=== PATIENT | female | born 1950 | race Caucasian/White ===

== ENCOUNTER 2017-01-05 11:50 | Outpatient (CLI) | payer OTHER | END 2017-01-05 11:51 | disposition critical access hospital (66) | LOC: EMS 11:50 | PROVIDERS: ATTEND Surgery | DX: G89.29 Other chronic pain (principal) | CPT/HCPCS: A0425; A0429 ==

== ENCOUNTER 2017-01-05 12:05 | Inpatient (IN) | payer OTHER, MEDICARE ==
[2017-01-05] MEDS ORDERED: ONDANSETRON 4 MG/2 ML VIAL IVP STA ×2 (12:52→16:26)
[2017-01-05] MEDS ORDERED: MORPHINE 2 MG/ML SYRINGE IVP STA ×2 (12:52→16:13)
[2017-01-05] MEDS ORDERED: SODIUM CHLORIDE 0.9% 1,000 ML IV ONE ×2 (12:52→14:45)
[2017-01-05] MEDS ORDERED: DEXAMETHASONE 10 MG/ML VIAL IVP STA (12:53)
[2017-01-05] MEDS ORDERED: DEXAMETHASONE 10 MG/ML VIAL ONE (12:57)
[2017-01-05] MEDS ORDERED: ONDANSETRON 4 MG/2 ML VIAL ONE ×2 (12:57→16:27)
[2017-01-05] MEDS ORDERED: MORPHINE 10 MG/ML VIAL ONE ×2 (12:57→16:14)
--- NOTE | 2017-01-05 12:57 | ED Physician Documentation ---
PD HPI BACK PAIN - Stated complaint Stated Complaint: BACK PX - Chief complaint Chief Complaint: Back Pain - History obtained from History obtained from: Patient, Family - History of Present Illness Timing - onset: How many days ago (3) Timing - duration: Days (3) Timing - details: Gradual onset, Still present Pain level max: >10 Pain level now: 7 Location: Lower, Left Quality: Pain, Spasm, Sharp, Similar to prior episodes Associated symptoms: No: Fever, Weakness, Numbness, Incontinent of urine, Unable to urinate, Hematuria, Incontinent of stool Improves with: Rest, Position Worsened by: Movement, Lifting, Twisting, Palpation Contributing factors: Other (shopping) Similar symptoms before: Diagnosis (lumbar disc disease has had back surgery previously) Recently seen: Not recently seen - Additional information Additional information: 66 y/o type 2 diabetic female with a history of MS and prior back pain has developed acute back pain that has kept her in bed for the past 3 days. She has severe pain to any movement and the pain is located in the lower back on the left side. Review of Systems Constitutional: denies: Fever, Chills, Fatigue Eyes: denies: Decreased vision Ears: denies: Ear pain Nose: denies: Congestion Throat: denies: Sore throat Cardiac: denies: Chest pain / pressure, Palpitations Respiratory: denies: Dyspnea, Cough GI: reports: Nausea. denies: Abdominal Pain, Vomiting, Constipation, Diarrhea : denies: Dysuria, Frequency Skin: denies: Rash Musculoskeletal: reports: Back pain. 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 - Present Medications Home Medications: Ambulatory Orders Medication Instructions Recorded Confirmed Calcium Gel 2 tab DAILY 01/11/15 03/25/15 Glatiramer Acetate [Copaxone] 20 mg DAILY 01/11/15 03/25/15 Insulin NPH Human Isophane 22 units BID 01/11/15 03/25/15 [Humulin N] Losartan [Cozaar] 75 mg DAILY 06/28/15 09/09/15 Metoprolol Tartrate 50 mg BID 01/11/15 03/25/15 Phenytoin Sodium Extended 300 mg DAILY 01/11/15 03/25/15 [Dilantin] Pregabalin [Lyrica] 300 mg BID 01/11/15 03/25/15 glipiZIDE [Glucotrol] 10 mg BID 01/11/15 03/25/15 - Allergies Allergies/Adverse Reactions: Allergies Allergy/AdvReac Type Severity Reaction Status Date / Time hydromorphone HCl * AdvReac Emesis Verified 01/05/17 12:13 [From Dilaudid] - Social History Does the pt smoke?: No Smoking Status: Never smoker Does the pt drink ETOH?: No Does the pt have substance abuse?: No PD ED PE NORMAL - Vitals Vital signs reviewed: Yes (hypertensive) - General General: Alert and oriented X 3, No acute distress, Well developed/nourished - HEENT HEENT: Atraumatic, PERRL - Neck Neck: Supple, no meningeal sign - Cardiac Cardiac: RRR, No murmur - Respiratory Respiratory: No respiratory distress, Clear bilaterally - Abdomen Abdomen: Soft, Non tender - Back Back: No CVA TTP, No spinal TTP, Other (There is mild point tenderness to the lower left paraspinous muscles. The paitent is wearing a back brace. ) - Derm Derm: Normal color, No rash - Extremities Extremities: No deformity, No edema - Neuro Neuro: Alert and oriented X 3, No motor deficit, No sensory deficit, Normal speech - Psych Psych: Normal mood, Normal affect Results - Vitals Vitals: Vital Signs - 24 hr 01/05/17 01/05/17 01/05/17 12:07 14:00 15:09 Temperature 36.5 C Heart Rate 62 67 65 Respiratory 14 12 17 Rate Blood Pressure 190/92 H 185/88 H 168/88 H O2 Saturation 98 97 95 Oxygen O2 Source Room air - Labs Labs: Laboratory Tests 01/05/17 01/05/17 01/05/17 13:20 13:20 16:25 WBC 7.7 RBC 5.11 Hgb 15.1 Hct 43.6 MCV 85.3 MCH 29.5 MCHC 34.6 RDW 13.0 Plt Count 159 MPV 9.6 Neut # 5.2 Lymph # 1.5 [place] # 0.7 Eos # 0.3 Baso # 0.1 Absolute Nucleated RBC 0.00 Nucleated RBCs 0.0 Sodium 141 Potassium 3.7 Chloride 104 Carbon Dioxide 27 Anion Gap 10.0 BUN 14 Creatinine 0.5 Estimated GFR (MDRD) 123 Glucose 227 H Calcium 9.3 Total Bilirubin 0.7 AST 13 ALT 14 Alkaline Phosphatase 88 Total Protein 6.2 L Albumin 3.5 Globulin 2.7 Albumin/Globulin Ratio 1.3 Lipase 18 L Urine Color YELLOW Urine Clarity CLEAR Urine pH 6.5 Ur Specific [place] 1.020 Urine Protein NEGATIVE Urine Glucose (UA) >=1000 H Urine Ketones 15 H Urine Occult Blood NEGATIVE Urine Nitrite NEGATIVE Urine Bilirubin NEGATIVE Urine Urobilinogen 1 (NORMAL) Ur Leukocyte Esterase NEGATIVE Ur Microscopic Review NOT INDICATED Urine Culture Comments NOT INDICATED Procedures - IVC sono (time) 1250 Bedside IVC sono: IVC measures (cm) (0.92), IVC collapsed c insp (cm) (complete) , Dehydration 1440 Bedside IVC sono: IVC measures (cm) (1.10), IVC collapsed c insp (cm) (complete) , Dehydration (after 1 liter) PD MEDICAL DECISION MAKING - ED course Complexity details: reviewed old records, reviewed results, re-evaluated patient , considered differential, d/w patient, d/w family ED course: 66 y/o female has acute back spasm and is dehydrated with T2DM. She is hydrated and given decacdron, morphine and zofran and valium. despite medications the patient is not able to move to more than 15 degrees without severe spasm in the lower lumbar muscles on the left. We did not find UTI or other explanation for the elevated blood sugar and we were not able to get adequate control of the patient's pain despite mulitple modalities used over 5 hours in the ED and eventually the help of Dr. Buster Renner was requested. Departure - Departure Disposition: ED Place in Observation Clinical Impression: Intractable low back pain Condition: Stable
[2017-01-05 13:23] LABS: BASOPHILS # (AUTO) 0.1 10^3/uL (0.0-0.1); BASOPHILS % (AUTO) 0.9 %; EOSINOPHILS # (AUTO) 0.3 10^3/uL (0.0-0.7); EOSINOPHILS % (AUTO) 3.5 %; HCT - HEMATOCRIT 43.6 % (37.0-47.0); HGB - HEMOGLOBIN 15.1 g/dL (12.0-16.0); LYMPHOCYTES # (AUTO) 1.5 10^3/uL (1.5-3.5); LYMPHOCYTES % (AUTO) 19.2 %; MEAN CORPUSCULAR HEMOGLOBIN 29.5 pg (27.0-31.0); MEAN CORPUSCULAR HGB CONC 34.6 g/dL (32.0-36.0); MEAN CORPUSCULAR VOLUME 85.3 fL (81.0-99.0); MEAN PLATELET VOLUME 9.6 fL (7.9-10.8); MONOCYTES # (AUTO) 0.7 10^3/uL (0.0-1.0); MONOCYTES % (AUTO) 8.6 %; NEUTROPHILS # (AUTO) 5.2 10^3/uL (1.5-6.6); NEUTROPHILS % (AUTO) 67.8 %; RED BLOOD COUNT 5.11 10^6/uL (4.20-5.40); UNCORRECTED WHITE BLOOD COUNT 7.7 x10^3/uL; WHITE BLOOD COUNT 7.7 x10^3/uL (4.8-10.8)
[2017-01-05 13:37] LABS: ALBUMIN/GLOBULIN RATIO 1.3 (1.0-2.2); BILIRUBIN,TOTAL 0.7 mg/dL (0.2-1.0); CALCIUM 9.3 mg/dL (8.5-10.3); CREATININE 0.5 mg/dL (0.4-1.0); POTASSIUM 3.7 mmol/L (3.5-5.0); TOTAL PROTEIN 6.2 g/dL (6.7-8.2)
[2017-01-05] MEDS ORDERED: diazePAM INJ 5 MG/ML SYRINGE IVP STA (14:03)
[2017-01-05] MEDS ORDERED: diazePAM INJ 5 MG/ML SYRINGE ONE (14:06)
[2017-01-05 16:30] LABS: BILIRUBIN,URINE NEGATIVE (NEGATIVE); PH,URINE 6.5 PH (5.0-7.5)
[2017-01-05 16:31] LABS: UA CHARGE (STRIP ONLY) YES; UR CULTURE IF IND NOT INDICATED
[2017-01-05] MEDS ORDERED: ZOLPIDEM 5 MG TABLET PO PRN (18:24)
[2017-01-05] MEDS ORDERED: MORPHINE 2 MG/ML SYRINGE IVP PRN ×2 (18:24→18:37)
[2017-01-05 19:13] LABS: HEMOGLOBIN A1C 1.42 g/dL
[2017-01-05] MEDS ORDERED: MORPHINE 2 MG/ML SYRINGE IVP SCH (19:17)
[2017-01-05] MEDS: SODIUM CHLORIDE FLUSH 0.9% 10 ML SYRINGE IVP PRN ×2 (19:39→19:48)
[2017-01-05] MEDS: ONDANSETRON 4 MG/2 ML VIAL IVP PRN (19:40)
[2017-01-05] MEDS: SODIUM CHLORIDE 0.9% 1,000 ML IV SCH (19:48)
[2017-01-05] MEDS: INSULIN ASPART 300 UNIT/3 ML PEN SUBQ SCH (21:29)
[2017-01-05] MEDS: KETOROLAC 15 MG/ML VIAL IVP PRN (21:30)
[2017-01-05] MEDS: glipiZIDE 5 MG TABLET PO SCH (22:06)
[2017-01-05] MEDS: PREGABALIN 100 MG CAPSULE PO SCH (22:06)
[2017-01-05] MEDS: PROMETHAZINE 12.5 MG SUPP PR PRN (22:06)
[2017-01-05] MEDS: METOPROLOL TARTRATE 50 MG TABLET PO SCH (22:06)
[2017-01-05] MEDS: BACLOFEN 10 MG TABLET PO SCH (22:06)
[2017-01-05] MEDS: LOSARTAN 50 MG TABLET PO SCH (22:09)
[2017-01-05] MEDS: SODIUM CHLORIDE FLUSH 0.9% 10 ML SYRINGE IVP SCH (22:09)
[2017-01-05] MEDS: TRIAMCINOLONE 0.1% CREAM 15 GM TUBE TOP SCH (22:09)
[2017-01-06] MEDS: SODIUM CHLORIDE FLUSH 0.9% 10 ML SYRINGE IVP PRN (03:01)
[2017-01-06] MEDS: ONDANSETRON 4 MG/2 ML VIAL IVP PRN (03:02)
[2017-01-06] MEDS: KETOROLAC 15 MG/ML VIAL IVP PRN ×3 (03:02→14:46)
[2017-01-06] MEDS: BACLOFEN 10 MG TABLET PO SCH ×3 (05:40→21:00)
[2017-01-06 08:00] LABS: BASOPHILS # (AUTO) 0.1 10^3/uL (0.0-0.1); BASOPHILS % (AUTO) 0.7 %; EOSINOPHILS % (AUTO) 0.4 %; HCT - HEMATOCRIT 39.7 % (37.0-47.0); HGB - HEMOGLOBIN 13.8 g/dL (12.0-16.0); LYMPHOCYTES # (AUTO) 1.9 10^3/uL (1.5-3.5); LYMPHOCYTES % (AUTO) 20.7 %; MEAN CORPUSCULAR HEMOGLOBIN 29.8 pg (27.0-31.0); MEAN CORPUSCULAR HGB CONC 34.8 g/dL (32.0-36.0); MEAN CORPUSCULAR VOLUME 85.7 fL (81.0-99.0); MEAN PLATELET VOLUME 9.6 fL (7.9-10.8); MONOCYTES # (AUTO) 0.8 10^3/uL (0.0-1.0); MONOCYTES % (AUTO) 8.7 %; NEUTROPHILS # (AUTO) 6.3 10^3/uL (1.5-6.6); NEUTROPHILS % (AUTO) 69.5 %; RED BLOOD COUNT 4.63 10^6/uL (4.20-5.40); RED CELL DISTRIBUTION WIDTH 12.9 % (12.0-15.0); UNCORRECTED WHITE BLOOD COUNT 9.1 x10^3/uL; WHITE BLOOD COUNT 9.1 x10^3/uL (4.8-10.8)
[2017-01-06] MEDS: INSULIN ASPART 300 UNIT/3 ML PEN SUBQ SCH ×4 (08:06→20:36)
[2017-01-06 08:12] LABS: ALBUMIN/GLOBULIN RATIO 1.2 (1.0-2.2); BILIRUBIN,TOTAL 0.5 mg/dL (0.2-1.0); CALCIUM 8.3 mg/dL (8.5-10.3); CREATININE 0.7 mg/dL (0.4-1.0); MAGNESIUM 1.5 mg/dL (1.7-2.8); POTASSIUM 3.6 mmol/L (3.5-5.0); TOTAL PROTEIN 5.9 g/dL (6.7-8.2)
[2017-01-06] MEDS: SODIUM CHLORIDE FLUSH 0.9% 10 ML SYRINGE IVP SCH ×3 (08:45→20:38)
[2017-01-06] MEDS: CHOLECALCIFEROL 5,000 UNIT CAPSULE PO SCH (08:47)
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
[2017-01-06] MEDS: FAMOTIDINE 20 MG TABLET PO SCH (08:48)
[2017-01-06] MEDS: ENOXAPARIN 40 MG/0.4 ML SYRINGE SUBQ SCH (08:48)
[2017-01-06] MEDS: INSULIN NPH HUMAN 100 UNIT/1 ML 10 ML MDV SUBQ SCH ×2 (08:48→20:30)
[2017-01-06] MEDS: glipiZIDE 5 MG TABLET PO SCH ×2 (08:48→20:30)
[2017-01-06] MEDS: POLYETHYLENE GLYCOL 3350 17 GM PACKET PO SCH (08:49)
[2017-01-06] MEDS: METOPROLOL TARTRATE 50 MG TABLET PO SCH ×2 (08:49→20:31)
[2017-01-06] MEDS: LOSARTAN 50 MG TABLET PO SCH ×2 (08:49→20:31)
[2017-01-06] MEDS: PREGABALIN 100 MG CAPSULE PO SCH ×2 (08:50→20:30)
[2017-01-06] MEDS: SODIUM CHLORIDE 0.9% 1,000 ML IV SCH ×2 (09:00→20:42)
[2017-01-06] MEDS ORDERED: ALPRAZolam 0.25 MG TABLET PO PRN (10:11)
--- NOTE | 2017-01-06 10:33 | PROVIDER PROGRESS NOTE ---
Subjective - Prog Note Date Prog Note Date: 01/06/17 Prog Note Time: 10:28 - Subjective Pt reports feeling: Improved (pt report her pain is much better controlled, feel much better) Objective - Vital Signs/Intake & Output Vital Signs: Vital Signs x48h Temp Pulse Resp BP Pulse Ox 01/06/17 08:49 36.6 C 74 16 160/86 H 98 01/06/17 06:41 36.4 C L 71 18 144/75 H 100 Intake & Output: Intake & Output 01/03/17 01/04/17 01/05/17 01/06/17 23:59 23:59 23:59 23:59 Intake Total 1325 600 Output Total 250 Balance 1325 350 - Objective General Appearance: positive: No acute distress, Alert Eyes Bilateral: positive: Normal inspection, PERRL ENT: positive: ENT inspection nml, Pharynx nml, No signs of dehydration Neck: positive: Nml inspection, Trachea midline Respiratory: positive: Chest non-tender, No respiratory distress, Breath sounds nml Cardiovascular: positive: Regular rate & rhythm, No murmur Peripheral Pulses: 2+ Radial (R), 2+ Radial (L), 2+ Dorsalis pedis (R), 2+ Dorsalis pedis (L) Abdomen: positive: Non-tender, Nml bowel sounds, No distention Back: positive: Nml inspection, Other (no CVA tenderness) Skin: positive: Color nml, Warm Extremities: positive: Non-tender, Full ROM, Nml appearance Neurologic/Psychiatric: positive: Oriented x3, CN's nml (2-12), Motor nml, Sensation nml - Lab Results Fish Bones: 01/06/17 07:54 01/06/17 07:54 Other Labs: Lab Results x24hrs 01/06/17 01/06/17 01/06/17 Range/Units 07:54 07:54 07:33 WBC 9.1 (4.8-10.8) x10^3/uL RBC 4.63 (4.20-5.40) 10^6/uL Hgb 13.8 (12.0-16.0) g/dL Hct 39.7 (37.0-47.0) % MCV 85.7 (81.0-99.0) fL MCH 29.8 (27.0-31.0) pg MCHC 34.8 (32.0-36.0) g/dL RDW 12.9 (12.0-15.0) % Plt Count 159 (130-450) 10^3/uL MPV 9.6 (7.9-10.8) fL Neut # 6.3 (1.5-6.6) 10^3/uL Lymph # 1.9 (1.5-3.5) 10^3/uL [place] # 0.8 (0.0-1.0) 10^3/uL Eos # 0.0 (0.0-0.7) 10^3/uL Baso # 0.1 (0.0-0.1) 10^3/uL Absolute Nucleated RBC 0.00 x10^3/uL Nucleated RBCs 0.0 /100WBC Sodium 141 (135-145) mmol/L Potassium 3.6 (3.5-5.0) mmol/L Chloride 106 (101-111) mmol/L Carbon Dioxide 26 (21-32) mmol/L Anion Gap 9.0 (6-13) BUN 20 (6-20) mg/dL Creatinine 0.7 (0.4-1.0) mg/dL Estimated GFR (MDRD) 84 L (>89) Glucose 243 H (70-100) mg/dL POC Whole Bld Glucose 216 H (70 - 100) mg/dL Calcium 8.3 L (8.5-10.3) mg/dL Magnesium 1.5 L (1.7-2.8) mg/dL Total Bilirubin 0.5 (0.2-1.0) mg/dL AST 26 (10-42) IU/L ALT 32 (10-60) IU/L Alkaline Phosphatase 112 (42-121) IU/L Total Protein 5.9 L (6.7-8.2) g/dL Albumin 3.2 (3.2-5.5) g/dL Globulin 2.7 (2.1-4.2) g/dL Albumin/Globulin Ratio 1.2 (1.0-2.2) Assessment/Plan - Problem List (1) Intractable low back pain Impression: Pt report Toradol is great control of her back pain, will continue on Toradol Pt report some anxiety, add Xanax PRN MRI is pending. After review MRI result, will discuss with pt to determine further intervention.
--- NOTE | 2017-01-06 12:41 | MRI Preliminary Report ---
Exam: MRI Lumbar Spine W/O IMPRESSION: 1. Mild to moderate degenerative spondylosis involving levels L3-L4 through L5-S1, stapled above and summarized below. As detailed above, this has progressed at L3-L4 and L5-S1 levels since the prior st udy dated 11/29/2013. 2. Grade 1 retrolisthesis L4 on L5 measuring 3 mm. Grade 1 retrolisthesis L5 on S1 measuring 5 mm. 3. Modic type 1 degenerative endplate change at L3-L4 level with mild endplate edema. Modic type I ch anges may represent a source of pain. 4. L3-L4 level demonstrates mild central canal narrowing, slightly progressed. Moderate to severe lef t and mild right neuroforaminal narrowing. The neuroforaminal narrowing has also progressed since the prior study. 5. L4-L5 level demonstrates mild central canal narrowing and moderate left and mild right neuroforami nal narrowing. This level is similar to the prior study. 6. L5-S1 level demonstrates mild central canal narrowing, slightly increased since the prior study. M [id number] bilateral neuroforaminal narrowing. Mild bilateral lateral recess narrowing with mass effect on bilateral traversing S1 nerves. The left lateral recess narrowing has slightly increased s rohit the prior study. Comment: The following findings are so common in adults without low back pain that while we report th eir presence, they must be interpreted with caution and in the context of the clinical situation. (Re misbah Espinoza et al, Spine 2001) Prevalence of findings in patients without low back pain: Disk degeneration (any evidence): 92% Disk desiccation/T2 signal loss: 83% Disk height loss: 56% Disk bulge: 64% Disk protrusion: 32% Annular tear/high intensity zone: 38% [facility] SITE ID: [id number]
--- NOTE | 2017-01-06 12:44 | MRI Report ---
EXAM: MRI LUMBAR SPINE WITHOUT CONTRAST EXAM DATE: 01/06/2017 12:02 PM. CLINICAL HISTORY: Back pain. History of MS. No recent trauma/injury. COMPARISON: MRI lumbar spine 11/29/2013 TECHNIQUE: Multiplanar, multisequence T1-weighted and fluid-sensitive sequences of the lumbar spine f rom T12 to S1 without contrast. Other: None. FINDINGS: Spinal Cord: The conus terminates at L1-L2. No signal abnormality in the visualized spinal cord. Alignment: Grade 1 retrolisthesis L4 on L5 measuring 3 mm. Grade 1 retrolisthesis L5 on S1 measuring 5 mm. Bone Marrow: Five kil-wwe-dsojkwh lumbar vertebral bodies are assumed. No gross fractures . T1 and T2 hyperintense lesion within the T12 vertebral body likely represents a benign hemangioma. Modic type 1 degenerative endplate change at L3-L4 level with mild endplate edema. Disk Levels/Facets: T12-L1: Unremarkable. L1-L2: Unremarkable. L2-L3: Unremarkable. L3-L4: Moderate disk height loss and desiccation. Moderate diffuse disk bulge, progressed since the p rior study. Mild bilateral facet arthropathy. Mild central canal narrowing, slightly progressed. Mode rate to severe left and mild right neuroforaminal narrowing. The neuroforaminal narrowing has also pr ogressed since the prior study. L4-L5: Moderate disk height loss and desiccation. Mild to moderate diffuse disk bulge and moderate bi lateral facet arthropathy. Mild central canal narrowing and moderate left and mild right neuroforamin al narrowing. This level is similar to the prior study. L5-S1: Extensive disk height loss and desiccation. Moderate diffuse disk bulge with superimposed left central extrusion extending caudad approximately 8 mm. This has increased since the prior study. Mod erate bilateral facet arthropathy. Mild central canal narrowing, slightly increased since the prior s tudy. Dhfj-pj-xwtrmqif bilateral neuroforaminal narrowing. Mild bilateral lateral recess narrowing wi th mass effect on bilateral traversing S1 nerves. The left lateral recess narrowing has slightly incr eased since the prior study. Musculature: Normal. No edema or fatty atrophy. Other: A 2.6 and meter T2 hyperintense lesion within the right kidney is incompletely evaluated, may represent a cyst. The appearance is similar to the prior study. The visualized abdominopelvic cavity is otherwise unremarkable. IMPRESSION: 1. Mild to moderate degenerative spondylosis involving levels L3-L4 through L5-S1, stapled above and summarized below. As detailed above, this has progressed at L3-L4 and L5-S1 levels since the prior st udy dated 11/29/2013. 2. Grade 1 retrolisthesis L4 on L5 measuring 3 mm. Grade 1 retrolisthesis L5 on S1 measuring 5 mm. 3. Modic type 1 degenerative endplate change at L3-L4 level with mild endplate edema. Modic type I ch anges may represent a source of pain. 4. L3-L4 level demonstrates mild central canal narrowing, slightly progressed. Moderate to severe lef t and mild right neuroforaminal narrowing. The neuroforaminal narrowing has also progressed since the prior study. 5. L4-L5 level demonstrates mild central canal narrowing and moderate left and mild right neuroforami nal narrowing. This level is similar to the prior study. 6. L5-S1 level demonstrates mild central canal narrowing, slightly increased since the prior study. M cdr-xs-wyyuioec bilateral neuroforaminal narrowing. Mild bilateral lateral recess narrowing with mass effect on bilateral traversing S1 nerves. The left lateral recess narrowing has slightly increased s rohit the prior study. Comment: The following findings are so common in adults without low back pain that while we report th eir presence, they must be interpreted with caution and in the context of the clinical situation. (Re misbah Espinoza et al, Spine 2001) Prevalence of findings in patients without low back pain: Disk degeneration (any evidence): 92% Disk desiccation/T2 signal loss: 83% Disk height loss: 56% Disk bulge: 64% Disk protrusion: 32% Annular tear/high intensity zone: 38% [facility] Referring Provider Line: [phone] SITE ID: [id number]
[2017-01-06] MEDS: TRIAMCINOLONE 0.1% CREAM 15 GM TUBE TOP SCH ×2 (13:29→20:31)
--- NOTE | 2017-01-06 13:30 | Discharge Plan ---
Discharge Plan Condition: Stable Diet: Diabetic Activity Restrictions: Activity as Tolerated Shower Restrictions: No Driving Restrictions: No Weight Bearing: Full Weight Follow-Up Care: Outpatient Rehab - PT No Smoking: If you smoke, Please STOP! Call for help.
[2017-01-06] MEDS ORDERED: SODIUM CHLORIDE 0.9% 1,000 ML IV ONE (15:00)
[2017-01-06] MEDS ORDERED: MAGNESIUM OXIDE 400 MG TABLET PO ONE (15:00)
[2017-01-06] MEDS: DOCUSATE SODIUM 250 MG CAPSULE PO SCH (21:00)
[2017-01-06] MEDS: SENNA 8.6 MG TABLET PO SCH (21:00)
[2017-01-07] MEDS: KETOROLAC 15 MG/ML VIAL IVP PRN ×3 (00:39→18:57)
[2017-01-07] MEDS ORDERED: MORPHINE 2 MG/ML SYRINGE IVP PRN (01:14)
[2017-01-07] MEDS ORDERED: MAGNESIUM CITRATE 296 ML BOTTLE PO PRN (01:14)
[2017-01-07] MEDS: ONDANSETRON 4 MG/2 ML VIAL IVP PRN (01:51)
[2017-01-07] MEDS ORDERED: MINERAL OIL ENEMA 133 ML BOTTLE RC SCH (02:00)
[2017-01-07] MEDS ORDERED: BISACODYL 10 MG SUPP PR SCH (02:00)
[2017-01-07 05:55] LABS: BASOPHILS % (AUTO) 0.4 %; EOSINOPHILS # (AUTO) 0.1 10^3/uL (0.0-0.7); EOSINOPHILS % (AUTO) 1.2 %; HCT - HEMATOCRIT 42.1 % (37.0-47.0); HGB - HEMOGLOBIN 14.2 g/dL (12.0-16.0); LYMPHOCYTES # (AUTO) 1.6 10^3/uL (1.5-3.5); LYMPHOCYTES % (AUTO) 14.2 %; MEAN CORPUSCULAR HEMOGLOBIN 29.4 pg (27.0-31.0); MEAN CORPUSCULAR HGB CONC 33.6 g/dL (32.0-36.0); MEAN CORPUSCULAR VOLUME 87.5 fL (81.0-99.0); MEAN PLATELET VOLUME 10.1 fL (7.9-10.8); MONOCYTES # (AUTO) 0.9 10^3/uL (0.0-1.0); MONOCYTES % (AUTO) 7.4 %; NEUTROPHILS # (AUTO) 8.9 10^3/uL (1.5-6.6); NEUTROPHILS % (AUTO) 76.8 %; RED BLOOD COUNT 4.81 10^6/uL (4.20-5.40); RED CELL DISTRIBUTION WIDTH 13.3 % (12.0-15.0); UNCORRECTED WHITE BLOOD COUNT 11.6 x10^3/uL; WHITE BLOOD COUNT 11.6 x10^3/uL (4.8-10.8)
[2017-01-07] MEDS: SODIUM CHLORIDE 0.9% 1,000 ML IV SCH ×2 (06:08→19:03)
[2017-01-07 06:10] LABS: ALBUMIN/GLOBULIN RATIO 1.1 (1.0-2.2); BILIRUBIN,TOTAL 0.4 mg/dL (0.2-1.0); CALCIUM 8.3 mg/dL (8.5-10.3); CREATININE 0.5 mg/dL (0.4-1.0); POTASSIUM 3.6 mmol/L (3.5-5.0); TOTAL PROTEIN 6.1 g/dL (6.7-8.2)
[2017-01-07] MEDS: BACLOFEN 10 MG TABLET PO SCH ×3 (06:31→21:21)
[2017-01-07] MEDS: SODIUM CHLORIDE FLUSH 0.9% 10 ML SYRINGE IVP SCH ×3 (06:34→21:22)
[2017-01-07] MEDS ORDERED: hydrALAZINE INJ 20 MG/ML VIAL IVP PRN (07:52)
--- NOTE | 2017-01-07 08:00 | PROVIDER PROGRESS NOTE ---
Subjective - Prog Note Date Prog Note Date: 01/07/17 Prog Note Time: 07:58 - Subjective Pt reports feeling: Improved (pt state she felt much better after she had a big bowel movement on last night) Current Medications - Current Medications Current Medications: I will ask pharmacy to verify pt can bring her home meds Glatiramer to the floor Objective - Vital Signs/Intake & Output Vital Signs: Vital Signs x48h Temp Pulse Resp BP Pulse Ox 01/07/17 07:30 36.4 C L 64 20 170/82 H 100 01/07/17 05:16 36.9 C 67 18 147/87 H 98 01/07/17 02:00 160/69 H 01/07/17 00:15 36.8 C 70 18 190/107 H 97 Intake & Output: Intake & Output 01/04/17 01/05/17 01/06/17 01/07/17 23:59 23:59 23:59 23:59 Intake Total 1400 915 Output Total 1200 300 Balance 200 615 - Objective General Appearance: positive: No acute distress, Alert Eyes Bilateral: positive: Normal inspection, PERRL ENT: positive: ENT inspection nml, Pharynx nml Neck: positive: Nml inspection, Trachea midline Respiratory: positive: Chest non-tender, No respiratory distress, Breath sounds nml Cardiovascular: positive: Regular rate & rhythm, No murmur Peripheral Pulses: 2+ Radial (R), 2+ Radial (L), 2+ Dorsalis pedis (R), 2+ Dorsalis pedis (L) Abdomen: positive: Non-tender, Nml bowel sounds, No distention Back: positive: Nml inspection Skin: positive: Color nml, No rash, Warm Extremities: positive: Non-tender, Full ROM, Nml appearance Neurologic/Psychiatric: positive: Oriented x3, CN's nml (2-12), Motor nml, Sensation nml - Lab Results Fish Bones: 01/07/17 04:45 01/07/17 04:45 Other Labs: Lab Results x24hrs 01/07/17 01/07/17 01/07/17 Range/Units 07:16 04:45 04:45 WBC 11.6 H (4.8-10.8) x10^3/uL RBC 4.81 (4.20-5.40) 10^6/uL Hgb 14.2 (12.0-16.0) g/dL Hct 42.1 (37.0-47.0) % MCV 87.5 (81.0-99.0) fL MCH 29.4 (27.0-31.0) pg MCHC 33.6 (32.0-36.0) g/dL RDW 13.3 (12.0-15.0) % Plt Count 161 (130-450) 10^3/uL MPV 10.1 (7.9-10.8) fL Neut # 8.9 H (1.5-6.6) 10^3/uL Lymph # 1.6 (1.5-3.5) 10^3/uL [place] # 0.9 (0.0-1.0) 10^3/uL Eos # 0.1 (0.0-0.7) 10^3/uL Baso # 0.0 (0.0-0.1) 10^3/uL Absolute Nucleated RBC 0.00 x10^3/uL Nucleated RBCs 0.0 /100WBC Sodium 143 (135-145) mmol/L Potassium 3.6 (3.5-5.0) mmol/L Chloride 112 H (101-111) mmol/L Carbon Dioxide 25 (21-32) mmol/L Anion Gap 6.0 (6-13) BUN 16 (6-20) mg/dL Creatinine 0.5 (0.4-1.0) mg/dL Estimated GFR (MDRD) 123 (>89) Glucose 212 H (70-100) mg/dL POC Whole Bld Glucose 166 H (70 - 100) mg/dL Calcium 8.3 L (8.5-10.3) mg/dL Total Bilirubin 0.4 (0.2-1.0) mg/dL AST 19 (10-42) IU/L ALT 28 (10-60) IU/L Alkaline Phosphatase 105 (42-121) IU/L Total Protein 6.1 L (6.7-8.2) g/dL Albumin 3.2 (3.2-5.5) g/dL Globulin 2.9 (2.1-4.2) g/dL Albumin/Globulin Ratio 1.1 (1.0-2.2) 06/23/17 Range/Units 20:28 WBC (4.8-10.8) x10^3/uL RBC (4.20-5.40) 10^6/uL Hgb (12.0-16.0) g/dL Hct (37.0-47.0) % MCV (81.0-99.0) fL MCH (27.0-31.0) pg MCHC (32.0-36.0) g/dL RDW (12.0-15.0) % Plt Count (130-450) 10^3/uL MPV (7.9-10.8) fL Neut # (1.5-6.6) 10^3/uL Lymph # (1.5-3.5) 10^3/uL [place] # (0.0-1.0) 10^3/uL Eos # (0.0-0.7) 10^3/uL Baso # (0.0-0.1) 10^3/uL Absolute Nucleated RBC x10^3/uL Nucleated RBCs /100WBC Sodium (135-145) mmol/L Potassium (3.5-5.0) mmol/L Chloride (101-111) mmol/L Carbon Dioxide (21-32) mmol/L Anion Gap (6-13) BUN (6-20) mg/dL Creatinine (0.4-1.0) mg/dL Estimated GFR (MDRD) (>89) Glucose (70-100) mg/dL POC Whole Bld Glucose 163 H (70 - 100) mg/dL Calcium (8.5-10.3) mg/dL Total Bilirubin (0.2-1.0) mg/dL AST (10-42) IU/L ALT (10-60) IU/L Alkaline Phosphatase (42-121) IU/L Total Protein (6.7-8.2) g/dL Albumin (3.2-5.5) g/dL Globulin (2.1-4.2) g/dL Albumin/Globulin Ratio (1.0-2.2) Assessment/Plan - Problem List (1) Intractable low back pain Impression: pt report she feel much better for back pain after she had a big bowel movement Pt can bring her home meds Glatiramer vital and lab reviewed. Continue treatment, pain control, PT treatment add PRN hydralazine for BP control Per discussion with pt and her family last night, pt want to D/C to SNF, D/C in planing.
[2017-01-07] MEDS: INSULIN ASPART 300 UNIT/3 ML PEN SUBQ SCH ×4 (08:08→20:35)
[2017-01-07] MEDS: CHOLECALCIFEROL 5,000 UNIT CAPSULE PO SCH (08:09)
[2017-01-07] MEDS: ENOXAPARIN 40 MG/0.4 ML SYRINGE SUBQ SCH (08:09)
[2017-01-07] MEDS: glipiZIDE 5 MG TABLET PO SCH ×2 (08:10→20:36)
[2017-01-07] MEDS: FAMOTIDINE 20 MG TABLET PO SCH (08:10)
[2017-01-07] MEDS: INSULIN NPH HUMAN 100 UNIT/1 ML 10 ML MDV SUBQ SCH ×2 (08:10→20:50)
[2017-01-07] MEDS: METOPROLOL TARTRATE 50 MG TABLET PO SCH ×2 (08:11→20:37)
[2017-01-07] MEDS: LOSARTAN 50 MG TABLET PO SCH ×2 (08:11→20:36)
[2017-01-07] MEDS: POLYETHYLENE GLYCOL 3350 17 GM PACKET PO SCH (08:12)
[2017-01-07] MEDS: PREGABALIN 100 MG CAPSULE PO SCH ×2 (08:12→20:36)
[2017-01-07] MEDS: TRIAMCINOLONE 0.1% CREAM 15 GM TUBE TOP SCH ×2 (08:13→20:42)
[2017-01-07] MEDS: SENNA 8.6 MG TABLET PO SCH (08:13)
[2017-01-07] MEDS: DOCUSATE SODIUM 250 MG CAPSULE PO SCH (08:13)
[2017-01-07] MEDS: BUTALB/ACETAM/CAFF 50/325/40MG TABLET PO PRN (08:14)
[2017-01-07] MEDS: GLATIRAMER 20 MG/ML SUBQ SCH (09:09)
[2017-01-08] MEDS: KETOROLAC 15 MG/ML VIAL IVP PRN ×3 (04:33→16:57)
[2017-01-08] MEDS: SODIUM CHLORIDE FLUSH 0.9% 10 ML SYRINGE IVP SCH ×3 (05:04→21:41)
[2017-01-08] MEDS: BACLOFEN 10 MG TABLET PO SCH ×3 (05:04→21:40)
[2017-01-08] MEDS: ONDANSETRON 4 MG/2 ML VIAL IVP PRN (05:04)
[2017-01-08 05:13] LABS: BASOPHILS # (AUTO) 0.1 10^3/uL (0.0-0.1); BASOPHILS % (AUTO) 0.7 %; EOSINOPHILS # (AUTO) 0.4 10^3/uL (0.0-0.7); EOSINOPHILS % (AUTO) 4.7 %; HCT - HEMATOCRIT 45.2 % (37.0-47.0); HGB - HEMOGLOBIN 15.2 g/dL (12.0-16.0); LYMPHOCYTES # (AUTO) 4.3 10^3/uL (1.5-3.5); LYMPHOCYTES % (AUTO) 44.2 %; MEAN CORPUSCULAR HEMOGLOBIN 29.4 pg (27.0-31.0); MEAN CORPUSCULAR HGB CONC 33.7 g/dL (32.0-36.0); MEAN CORPUSCULAR VOLUME 87.4 fL (81.0-99.0); MONOCYTES # (AUTO) 0.8 10^3/uL (0.0-1.0); MONOCYTES % (AUTO) 8.8 %; NEUTROPHILS % (AUTO) 41.6 %; RED BLOOD COUNT 5.17 10^6/uL (4.20-5.40); RED CELL DISTRIBUTION WIDTH 13.2 % (12.0-15.0); UNCORRECTED WHITE BLOOD COUNT 9.6 x10^3/uL; WHITE BLOOD COUNT 9.6 x10^3/uL (4.8-10.8)
[2017-01-08 05:27] LABS: ALBUMIN/GLOBULIN RATIO 1.1 (1.0-2.2); BILIRUBIN,TOTAL 0.7 mg/dL (0.2-1.0); CALCIUM 8.7 mg/dL (8.5-10.3); CREATININE 0.5 mg/dL (0.4-1.0); POTASSIUM 3.2 mmol/L (3.5-5.0); TOTAL PROTEIN 6.4 g/dL (6.7-8.2)
[2017-01-08] MEDS ORDERED: POTASSIUM CHLORIDE 20 MEQ TABLET PO ONE (07:11)
[2017-01-08] MEDS: SODIUM CHLORIDE 0.9% 1,000 ML IV SCH ×2 (08:22→21:41)
[2017-01-08] MEDS: INSULIN ASPART 300 UNIT/3 ML PEN SUBQ SCH ×4 (08:34→21:39)
--- NOTE | 2017-01-08 08:34 | PROVIDER PROGRESS NOTE ---
Subjective - Prog Note Date Prog Note Date: 01/08/17 Prog Note Time: 08:32 - Subjective Pt reports feeling: Improved (pt state her back pain is 100% improved.) Objective - Vital Signs/Intake & Output Vital Signs: Vital Signs x48h Temp Pulse Resp BP Pulse Ox 01/08/17 07:00 61 135/80 H 01/08/17 00:44 36.6 C 62 18 147/87 H 98 Intake & Output: Intake & Output 01/05/17 01/06/17 01/07/17 01/08/17 23:59 23:59 23:59 23:59 Intake Total 1400 3461 673 Output Total 1200 300 Balance 200 3161 673 - Objective General Appearance: positive: No acute distress, Alert Eyes Bilateral: positive: Normal inspection, PERRL ENT: positive: ENT inspection nml, No signs of dehydration Neck: positive: Nml inspection, Trachea midline Respiratory: positive: Chest non-tender, No respiratory distress, Breath sounds nml Cardiovascular: positive: Regular rate & rhythm, No murmur Peripheral Pulses: 2+ Radial (R), 2+ Radial (L), 2+ Dorsalis pedis (R), 2+ Dorsalis pedis (L) Abdomen: positive: Non-tender, Nml bowel sounds, No distention Back: positive: Nml inspection, Other (no CVA tenderness) Skin: positive: Color nml, Warm Extremities: positive: Non-tender, Full ROM, Nml appearance Neurologic/Psychiatric: positive: Oriented x3, CN's nml (2-12), Motor nml, Sensation nml - Lab Results Fish Bones: 01/08/17 04:50 01/08/17 04:50 Other Labs: Lab Results x24hrs 01/08/17 01/08/17 01/08/17 Range/Units 07:20 05:10 04:50 WBC (4.8-10.8) x10^3/uL RBC (4.20-5.40) 10^6/uL Hgb (12.0-16.0) g/dL Hct (37.0-47.0) % MCV (81.0-99.0) fL MCH (27.0-31.0) pg MCHC (32.0-36.0) g/dL RDW (12.0-15.0) % Plt Count (130-450) 10^3/uL MPV (7.9-10.8) fL Neut # (1.5-6.6) 10^3/uL Lymph # (1.5-3.5) 10^3/uL [place] # (0.0-1.0) 10^3/uL Eos # (0.0-0.7) 10^3/uL Baso # (0.0-0.1) 10^3/uL Absolute Nucleated RBC x10^3/uL Nucleated RBCs /100WBC Sodium 147 H (135-145) mmol/L Potassium 3.2 L (3.5-5.0) mmol/L Chloride 114 H (101-111) mmol/L Carbon Dioxide 27 (21-32) mmol/L Anion Gap 6.0 (6-13) BUN 10 (6-20) mg/dL Creatinine 0.5 (0.4-1.0) mg/dL Estimated GFR (MDRD) 123 (>89) Glucose 92 (70-100) mg/dL POC Whole Bld Glucose 129 H 83 (70 - 100) mg/dL Calcium 8.7 (8.5-10.3) mg/dL Total Bilirubin 0.7 (0.2-1.0) mg/dL AST 18 (10-42) IU/L ALT 25 (10-60) IU/L Alkaline Phosphatase 115 (42-121) IU/L Total Protein 6.4 L (6.7-8.2) g/dL Albumin 3.4 (3.2-5.5) g/dL Globulin 3.0 (2.1-4.2) g/dL Albumin/Globulin Ratio 1.1 (1.0-2.2) Phenytoin ug/mL 01/08/17 01/07/17 01/07/17 Range/Units 04:50 20:25 16:26 WBC 9.6 (4.8-10.8) x10^3/uL RBC 5.17 (4.20-5.40) 10^6/uL Hgb 15.2 (12.0-16.0) g/dL Hct 45.2 (37.0-47.0) % MCV 87.4 (81.0-99.0) fL MCH 29.4 (27.0-31.0) pg MCHC 33.7 (32.0-36.0) g/dL RDW 13.2 (12.0-15.0) % Plt Count 186 (130-450) 10^3/uL MPV 10.0 (7.9-10.8) fL Neut # 4.0 (1.5-6.6) 10^3/uL Lymph # 4.3 H (1.5-3.5) 10^3/uL [place] # 0.8 (0.0-1.0) 10^3/uL Eos # 0.4 (0.0-0.7) 10^3/uL Baso # 0.1 (0.0-0.1) 10^3/uL Absolute Nucleated RBC 0.00 x10^3/uL Nucleated RBCs 0.0 /100WBC Sodium (135-145) mmol/L Potassium (3.5-5.0) mmol/L Chloride (101-111) mmol/L Carbon Dioxide (21-32) mmol/L Anion Gap (6-13) BUN (6-20) mg/dL Creatinine (0.4-1.0) mg/dL Estimated GFR (MDRD) (>89) Glucose (70-100) mg/dL POC Whole Bld Glucose 229 H 161 H (70 - 100) mg/dL Calcium (8.5-10.3) mg/dL Total Bilirubin (0.2-1.0) mg/dL AST (10-42) IU/L ALT (10-60) IU/L Alkaline Phosphatase (42-121) IU/L Total Protein (6.7-8.2) g/dL Albumin (3.2-5.5) g/dL Globulin (2.1-4.2) g/dL Albumin/Globulin Ratio (1.0-2.2) Phenytoin ug/mL 01/07/17 01/07/17 Range/Units 11:25 04:45 WBC (4.8-10.8) x10^3/uL RBC (4.20-5.40) 10^6/uL Hgb (12.0-16.0) g/dL Hct (37.0-47.0) % MCV (81.0-99.0) fL MCH (27.0-31.0) pg MCHC (32.0-36.0) g/dL RDW (12.0-15.0) % Plt Count (130-450) 10^3/uL MPV (7.9-10.8) fL Neut # (1.5-6.6) 10^3/uL Lymph # (1.5-3.5) 10^3/uL [place] # (0.0-1.0) 10^3/uL Eos # (0.0-0.7) 10^3/uL Baso # (0.0-0.1) 10^3/uL Absolute Nucleated RBC x10^3/uL Nucleated RBCs /100WBC Sodium (135-145) mmol/L Potassium (3.5-5.0) mmol/L Chloride (101-111) mmol/L Carbon Dioxide (21-32) mmol/L Anion Gap (6-13) BUN (6-20) mg/dL Creatinine (0.4-1.0) mg/dL Estimated GFR (MDRD) (>89) Glucose (70-100) mg/dL POC Whole Bld Glucose 158 H (70 - 100) mg/dL Calcium (8.5-10.3) mg/dL Total Bilirubin (0.2-1.0) mg/dL AST (10-42) IU/L ALT (10-60) IU/L Alkaline Phosphatase (42-121) IU/L Total Protein (6.7-8.2) g/dL Albumin (3.2-5.5) g/dL Globulin (2.1-4.2) g/dL Albumin/Globulin Ratio (1.0-2.2) Phenytoin < 2.5 ug/mL Assessment/Plan - Problem List (1) Intractable low back pain Impression: vital and lab reviewed. K=3.2, replacement Pt state she still want to go SNF, wait for team to assess, and determine if pt qualify Pt had no bowel movement since yesterday, pt state prunes juice works for her, will try that to see no other issue reported
[2017-01-08] MEDS: METOPROLOL TARTRATE 50 MG TABLET PO SCH ×2 (09:48→21:42)
[2017-01-08] MEDS: DOCUSATE SODIUM 250 MG CAPSULE PO SCH (09:49)
[2017-01-08] MEDS: INSULIN NPH HUMAN 100 UNIT/1 ML 10 ML MDV SUBQ SCH ×2 (09:49→21:39)
[2017-01-08] MEDS: glipiZIDE 5 MG TABLET PO SCH ×2 (09:50→21:39)
[2017-01-08] MEDS: LOSARTAN 50 MG TABLET PO SCH ×2 (09:50→21:41)
[2017-01-08] MEDS: FAMOTIDINE 20 MG TABLET PO SCH (09:50)
[2017-01-08] MEDS: PREGABALIN 100 MG CAPSULE PO SCH ×2 (09:50→21:40)
[2017-01-08] MEDS: CHOLECALCIFEROL 5,000 UNIT CAPSULE PO SCH (09:51)
[2017-01-08] MEDS: SENNA 8.6 MG TABLET PO SCH (09:59)
[2017-01-08] MEDS: POLYETHYLENE GLYCOL 3350 17 GM PACKET PO SCH (09:59)
[2017-01-08] MEDS: ENOXAPARIN 40 MG/0.4 ML SYRINGE SUBQ SCH (10:48)
[2017-01-08] MEDS: GLATIRAMER 20 MG/ML SUBQ SCH (10:48)
[2017-01-08] MEDS: TRIAMCINOLONE 0.1% CREAM 15 GM TUBE TOP SCH ×2 (14:24→21:41)
[2017-01-09] MEDS: KETOROLAC 15 MG/ML VIAL IVP PRN (00:26)
[2017-01-09] MEDS: PROMETHAZINE 12.5 MG SUPP PR PRN (04:49)
[2017-01-09 05:52] LABS: BASOPHILS # (AUTO) 0.1 10^3/uL (0.0-0.1); BASOPHILS % (AUTO) 0.9 %; EOSINOPHILS # (AUTO) 0.3 10^3/uL (0.0-0.7); EOSINOPHILS % (AUTO) 3.9 %; HCT - HEMATOCRIT 45.9 % (37.0-47.0); HGB - HEMOGLOBIN 15.5 g/dL (12.0-16.0); LYMPHOCYTES # (AUTO) 2.3 10^3/uL (1.5-3.5); LYMPHOCYTES % (AUTO) 28.7 %; MEAN CORPUSCULAR HEMOGLOBIN 29.5 pg (27.0-31.0); MEAN CORPUSCULAR HGB CONC 33.8 g/dL (32.0-36.0); MEAN CORPUSCULAR VOLUME 87.2 fL (81.0-99.0); MEAN PLATELET VOLUME 9.9 fL (7.9-10.8); MONOCYTES # (AUTO) 0.7 10^3/uL (0.0-1.0); MONOCYTES % (AUTO) 8.1 %; NEUTROPHILS # (AUTO) 4.7 10^3/uL (1.5-6.6); NEUTROPHILS % (AUTO) 58.4 %; RED BLOOD COUNT 5.26 10^6/uL (4.20-5.40); RED CELL DISTRIBUTION WIDTH 13.3 % (12.0-15.0); UNCORRECTED WHITE BLOOD COUNT 8.1 x10^3/uL; WHITE BLOOD COUNT 8.1 x10^3/uL (4.8-10.8)
[2017-01-09 06:20] LABS: ALBUMIN/GLOBULIN RATIO 1.1 (1.0-2.2); BILIRUBIN,TOTAL 0.5 mg/dL (0.2-1.0); CALCIUM 9.1 mg/dL (8.5-10.3); CREATININE 0.4 mg/dL (0.4-1.0); POTASSIUM 3.3 mmol/L (3.5-5.0); TOTAL PROTEIN 6.8 g/dL (6.7-8.2)
[2017-01-09] MEDS: SODIUM CHLORIDE FLUSH 0.9% 10 ML SYRINGE IVP SCH ×2 (06:24→07:55)
[2017-01-09] MEDS: BACLOFEN 10 MG TABLET PO SCH (06:25)
[2017-01-09] MEDS ORDERED: POTASSIUM CHLORIDE INJ 40 MEQ in SODIUM CHLORIDE 0.9% 480 ML IV ONE (07:04)
[2017-01-09] MEDS: INSULIN ASPART 300 UNIT/3 ML PEN SUBQ SCH ×2 (07:51→11:56)
[2017-01-09] MEDS ORDERED: POTASSIUM CHLORIDE 20 MEQ TABLET PO ONE (07:52)
[2017-01-09 08:12] VITALS: BP 160/82
[2017-01-09] MEDS: BUTALB/ACETAM/CAFF 50/325/40MG TABLET PO PRN (08:27)
[2017-01-09] MEDS: PREGABALIN 100 MG CAPSULE PO SCH (08:27)
[2017-01-09] MEDS: glipiZIDE 5 MG TABLET PO SCH (08:27)
[2017-01-09] MEDS: LOSARTAN 50 MG TABLET PO SCH (08:27)
[2017-01-09] MEDS: FAMOTIDINE 20 MG TABLET PO SCH (08:28)
[2017-01-09] MEDS: DOCUSATE SODIUM 250 MG CAPSULE PO SCH (08:28)
[2017-01-09] MEDS: CHOLECALCIFEROL 5,000 UNIT CAPSULE PO SCH (08:28)
[2017-01-09] MEDS: METOPROLOL TARTRATE 50 MG TABLET PO SCH (08:28)
[2017-01-09] MEDS: ENOXAPARIN 40 MG/0.4 ML SYRINGE SUBQ SCH (08:29)
[2017-01-09] MEDS: INSULIN NPH HUMAN 100 UNIT/1 ML 10 ML MDV SUBQ SCH (09:00)
[2017-01-09] MEDS: TRIAMCINOLONE 0.1% CREAM 15 GM TUBE TOP SCH (09:00)
[2017-01-09] MEDS: GLATIRAMER 20 MG/ML SUBQ SCH (09:00)
[2017-01-09] MEDS: POLYETHYLENE GLYCOL 3350 17 GM PACKET PO SCH (10:18)
[2017-01-09] MEDS: SENNA 8.6 MG TABLET PO SCH (10:18)
--- NOTE | 2017-01-09 13:12 | PROVIDER PROGRESS NOTE ---
Subjective - Prog Note Date Prog Note Date: 01/09/17 Prog Note Time: 13:10 - Subjective Pt reports feeling: Improved (feels better) Objective - Vital Signs/Intake & Output Vital Signs: Vital Signs x48h Temp Pulse Resp BP BP Pulse Ox 01/09/17 08:28 160/82 H 01/09/17 08:10 36.3 C L 75 18 160/82 H 96 Intake & Output: Intake & Output 01/06/17 01/07/17 01/08/17 01/09/17 23:59 23:59 23:59 23:59 Intake Total 1400 3461 3149 1966 Output Total 1200 300 650 Balance 200 3161 3149 1316 - Objective General Appearance: positive: No acute distress, Alert Eyes Bilateral: positive: Normal inspection, PERRL ENT: positive: ENT inspection nml, Pharynx nml Neck: positive: Nml inspection, Trachea midline Respiratory: positive: Chest non-tender, No respiratory distress, Breath sounds nml Cardiovascular: positive: Regular rate & rhythm, No murmur Peripheral Pulses: 2+ Radial (R), 2+ Radial (L), 2+ Dorsalis pedis (R), 2+ Dorsalis pedis (L) Abdomen: positive: Non-tender, Nml bowel sounds, No distention Back: positive: Nml inspection Skin: positive: Color nml, Warm Extremities: positive: Non-tender, Full ROM, Nml appearance Neurologic/Psychiatric: positive: Oriented x3, CN's nml (2-12), Motor nml, Sensation nml - Lab Results Fish Bones: 01/09/17 05:24 01/09/17 05:24 Other Labs: Lab Results x24hrs 01/09/17 01/09/17 01/09/17 Range/Units 11:40 07:27 05:24 WBC (4.8-10.8) x10^3/uL RBC (4.20-5.40) 10^6/uL Hgb (12.0-16.0) g/dL Hct (37.0-47.0) % MCV (81.0-99.0) fL MCH (27.0-31.0) pg MCHC (32.0-36.0) g/dL RDW (12.0-15.0) % Plt Count (130-450) 10^3/uL MPV (7.9-10.8) fL Neut # (1.5-6.6) 10^3/uL Lymph # (1.5-3.5) 10^3/uL [place] # (0.0-1.0) 10^3/uL Eos # (0.0-0.7) 10^3/uL Baso # (0.0-0.1) 10^3/uL Absolute Nucleated RBC x10^3/uL Nucleated RBCs /100WBC Sodium 143 (135-145) mmol/L Potassium 3.3 L (3.5-5.0) mmol/L Chloride 108 (101-111) mmol/L Carbon Dioxide 26 (21-32) mmol/L Anion Gap 9.0 (6-13) BUN 12 (6-20) mg/dL Creatinine 0.4 (0.4-1.0) mg/dL Estimated GFR (MDRD) 160 (>89) Glucose 120 H (70-100) mg/dL POC Whole Bld Glucose 182 H 98 (70 - 100) mg/dL Calcium 9.1 (8.5-10.3) mg/dL Total Bilirubin 0.5 (0.2-1.0) mg/dL AST 19 (10-42) IU/L ALT 26 (10-60) IU/L Alkaline Phosphatase 114 (42-121) IU/L Total Protein 6.8 (6.7-8.2) g/dL Albumin 3.6 (3.2-5.5) g/dL Globulin 3.2 (2.1-4.2) g/dL Albumin/Globulin Ratio 1.1 (1.0-2.2) 01/09/17 01/08/17 01/08/17 Range/Units 05:24 20:38 16:23 WBC 8.1 (4.8-10.8) x10^3/uL RBC 5.26 (4.20-5.40) 10^6/uL Hgb 15.5 (12.0-16.0) g/dL Hct 45.9 (37.0-47.0) % MCV 87.2 (81.0-99.0) fL MCH 29.5 (27.0-31.0) pg MCHC 33.8 (32.0-36.0) g/dL RDW 13.3 (12.0-15.0) % Plt Count 156 (130-450) 10^3/uL MPV 9.9 (7.9-10.8) fL Neut # 4.7 (1.5-6.6) 10^3/uL Lymph # 2.3 (1.5-3.5) 10^3/uL [place] # 0.7 (0.0-1.0) 10^3/uL Eos # 0.3 (0.0-0.7) 10^3/uL Baso # 0.1 (0.0-0.1) 10^3/uL Absolute Nucleated RBC 0.00 x10^3/uL Nucleated RBCs 0.0 /100WBC Sodium (135-145) mmol/L Potassium (3.5-5.0) mmol/L Chloride (101-111) mmol/L Carbon Dioxide (21-32) mmol/L Anion Gap (6-13) BUN (6-20) mg/dL Creatinine (0.4-1.0) mg/dL Estimated GFR (MDRD) (>89) Glucose (70-100) mg/dL POC Whole Bld Glucose 149 H 189 H (70 - 100) mg/dL Calcium (8.5-10.3) mg/dL Total Bilirubin (0.2-1.0) mg/dL AST (10-42) IU/L ALT (10-60) IU/L Alkaline Phosphatase (42-121) IU/L Total Protein (6.7-8.2) g/dL Albumin (3.2-5.5) g/dL Globulin (2.1-4.2) g/dL Albumin/Globulin Ratio (1.0-2.2) Assessment/Plan - Problem List (1) Intractable low back pain Impression: vital and lab test review. Pt's BP was elevated in the night. PRN hydralazine was given, IVF was D/C. Pt's BP was down to normal in the circulation director, will adjust as needed. pt state her has difficult to take care of her, she is willing to be D/ C to SNF [facility]. Plan: prepare pt to be D/C to the [facility].
--- NOTE | 2017-01-10 07:31 | DISCHARGE SUMMARY ---
DATE OF ADMISSION: 01/06/2017 DATE OF DISCHARGE: 01/09/2017 CC: Mukesh Sexton; Dr Sandra Ulrich; Dr. Ac, medical assistant prn of On [facility] PRIMARY MEDICAL DOCTOR: Sandra Ulrich M.D. DISPOSITION: Patient will be discharged to [facility], medical assistant prn is Dr. Luna Ac. ADMISSION DIAGNOSES 1. Acute on chronic back pain and muscle spasm 2. Diabetes type 2. 3. Hypertension. 4. Multiple sclerosis. 5. Seizure. DISCHARGE DIAGNOSES 1. back pain Patient's back pain improved. Patient say 100% improved 2. Diabetes. 3. Hypertension. 4. Multiple sclerosis. Pt state she did not seizure, she did not take seizure medication at home. Patient had no seizures. Patient did not take seizure medicines at this time. Please see the History and Physical dictated by LUCY Meza, on 01/05/2017. HOSPITAL COURSE: Patient came here with unbearable back pain,muscle spasm, whick was worsening by position, better pain control by flat at bed. MRI reveals multiple locations with neuroforaminal narrowing,central canal narrowing , disk bulge, degenerative changing. Pt choose medical treatment plan at hospital on this time. Patient was dramatically improved for the pain and spasm. patient stated "100% improved". pt's vital is stable, lab test unremarkable. Pt state she want to be discharged today to [facility]. DISCHARGE PLAN: Patient will go to [facility]. Patient stated she wanted to go to [facility] facility because she says her has difficulty to take care of her, so patient is waiting to be discharged to the [facility]. I called the [facility] [employer], reported the patient's medical condition to Dr. Ac and left a message for Dr. Ac. Patient is willing to discharge to the [facility]. Patient understands she will go to [facility] and expresses agreeing to plan she wants to discharge to the [facility]. ALLERGIES 1. HYDROMORPHONE. 2. DILAUDID. DISCHARGE MEDICATIONS Refer to home medications. Fioricet 1 tab TId PO PRN for headache. Losartan 50 mg PO BID Lyrica 300 mg PO Bid Lopressor 75 mg PO Bid Glucotrol 10 mg PO Bid Vitamin D3 5000 unit po daily Insulin NPH 22 units SubQ Bid, with ACHS Glatiramer 20 mg SubQ daily Add 2 medications: 1. Baclofen 10 mg PO Tid, for muscle Spasm 2. Naproxen 500 mg PO Bid PRN for back pain Also, patient yesterday her blood pressure was slightly elevated, so blood pressure management with metoprolol will be adjusted to 75 b.i.d. metoprolol. In pt's home medication regime, Lopressor is 50 mg once and 75 mg once per each day. Additional discharge instruction: may see PCP in one week, neurosurgeon in two weeks, and EMR test in two weeks. DISCHARGE ACTIVITY: As tolerated. DISCHARGE DIET: For patient diabetes, will take a carb control diet. DISCHARGE TIME SPENT: 50 minutes. JOB #: [id number] EXT JOB #:[id number] [facility]
== END 2017-01-09 12:45 | DRG 552 ==
LOC: EDUNIT# → ED 12:05 → INTOOBSV 18:11 → MS 18:11 → OBSVTOIN 01-06 19:08 → MS 01-07 05:28
PROVIDERS: ADMIT Nurse Practitioner Gerontology; ATTEND Nurse Practitioner Gerontology
DX: M62.830 Muscle spasm of back (principal); M54.5 Low back pain; G89.29 Other chronic pain; E86.0 Dehydration; M48.06 Spinal stenosis, lumbar region; M51.9 Unspecified thoracic, thoracolumbar and lumbosacral intervertebral disc disorder; G35 Multiple sclerosis; E11.65 Type 2 diabetes mellitus with hyperglycemia; I10 Essential (primary) hypertension; F41.9 Anxiety disorder, unspecified; Z79.4 Long term (current) use of insulin; Z86.69 Personal history of other diseases of the nervous system and sense organs; Z86.79 Personal history of other diseases of the circulatory system
CPT/HCPCS: 36415; 72148; 80053; 80185; 81001; 81003; 83036; 83690; 83735; 85025; 87086; 96361; 96372; 96374; 96375; 96376; 99284; 99285

== ENCOUNTER 2017-01-09 13:46 | Outpatient (CLI) | payer OTHER | END 2017-01-09 13:47 | LOC: EMS 13:46 | PROVIDERS: ATTEND Surgery | DX: M54.5 Low back pain (principal) | CPT/HCPCS: A0425; A0428 ==

== ENCOUNTER 2017-02-27 12:27 | Emergency (ER) | payer MEDICARE, OTHER ==
--- NOTE | 2017-02-27 14:27 | XRAY Preliminary Report ---
Exam: XR Toe(s) LT IMPRESSION: No fracture identified. [facility] SITE ID: [id number]
--- NOTE | 2017-02-27 14:29 | XRAY Report ---
EXAM: LEFT FIRST THROUGH FIFTH TOES RADIOGRAPHY EXAM DATE: 02/27/2017 01:37 PM. CLINICAL HISTORY: Dropped soda can on toes. COMPARISON: None. TECHNIQUE: 3 views. FINDINGS: Bones: Normal. No fracture or bone lesion. Joints: Normal. No subluxations. Soft Tissues: Normal. No soft tissue swelling. IMPRESSION: No fracture identified. [facility] Referring Provider Line: [phone] SITE ID: [id number]
--- NOTE | 2017-02-27 15:50 | ED Physician Documentation ---
PD HPI LOWER EXT INJURY - Stated complaint Stated Complaint: TOE INJ/LAC - Chief complaint Chief Complaint: Ext Problem - History obtained from History obtained from: Patient, Family - History of Present Illness PD HPI LOW EXT INJURY LOCATION: Left, Toe Type of injury: Blunt / blow Where injury occurred: Home Timing - onset: Today Timing - duration: Hours Timing - details: Abrupt onset, Still present Improved by: Rest Worsened by: Moving, Palpating Associated symptoms: No: Weakness, Numbness Contributing factors: No: Anticoagulated Similar symptoms before: Has not had sx before Recently seen: Not recently seen - Additional information Additional information: 66-year-old female had a soda on her walker and she tipped the sort over fell onto her left foot injuring the left third and fourth toe. Review of Systems Constitutional: denies: Fever Respiratory: denies: Cough GI: denies: Vomiting Skin: denies: Rash Musculoskeletal: reports: Extremity pain. 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: Dilation and currettage - Present Medications Home Medications: Ambulatory Orders Medication Instructions Recorded Confirmed Glatiramer Acetate [Copaxone] 20 mg DAILY 01/11/15 02/27/17 Insulin NPH Human Isophane 22 units SUBQ BID 01/11/15 02/27/17 [Humulin N] Losartan [Cozaar] 50 mg PO BID 01/11/15 02/27/17 Pregabalin [Lyrica] 300 mg BID 01/11/15 02/27/17 glipiZIDE [Glucotrol] 10 mg PO BIDWM 01/11/15 02/27/17 Cholecalciferol [Vitamin D3] 5,000 unit PO DAILY 01/05/17 02/27/17 Butalb/Acetaminophen/Caffeine 1 each PO TID PRN 01/06/17 02/27/17 [Lpefzb-Pptarjhk-Qyth 50-325-40] Metoprolol Tartrate [Lopressor] 50 mg PO QPM 01/06/17 02/27/17 Baclofen 10 mg PO DAILY 02/27/17 02/27/17 - Allergies Allergies/Adverse Reactions: Allergies Allergy/AdvReac Type Severity Reaction Status Date / Time hydromorphone HCl * AdvReac Emesis Verified 01/05/17 12:13 [From Dilaudid] - Social History Does the pt smoke?: No Smoking Status: Never smoker Does the pt drink ETOH?: No Does the pt have substance abuse?: No - Immunizations Immunizations are current?: Yes - POLST Patient has POLST: No PD ED PE NORMAL - Vitals Vital signs reviewed: Yes (hypertensive) - General General: No acute distress, Well developed/nourished - HEENT HEENT: Atraumatic, PERRL - Respiratory Respiratory: No respiratory distress - Derm Derm: Normal color, Warm and dry, No rash - Extremities Extremities: No deformity, Other (There is an abrasion with a flap over the distal 3rd toe. The nail is intact. There is tenderness to the 3rd and 4th toes. ) - Neuro Neuro: No motor deficit, No sensory deficit - Psych Psych: Normal mood, Normal affect Results - Vitals Vitals: Vital Signs - 24 hr 02/27/17 12:41 Temperature 36.3 C L Heart Rate 65 Respiratory 16 Rate Blood Pressure 140/83 H O2 Saturation 100 Oxygen O2 Source Room air - Rads (name of study) toes Radiology: Prelim report reviewed (Impression: No fracture identified.), EMP read indepedently, See rad report PD MEDICAL DECISION MAKING - ED course Complexity details: reviewed old records, considered differential, d/w patient, d/w family Departure - Departure Disposition: 01 Home, Self Care Clinical Impression: Contusion, toes Qualifiers: Encounter type: initial encounter Toe: lesser toe Damage to nail status: without damage Laterality: left Qualified Code(s): S90.122A - Contusion of left lesser toe(s) without damage to nail, initial encounter Condition: Stable Instructions: ED Contusion Lower Ext Follow-Up: Sandra Ulrich MD [Primary Care Provider] -
[2017-02-27] MEDS ORDERED: TETANUS/DIPHTHERIA/PERTUSSIS 0.5 ML SYRINGE IM ONE (16:01)
[2017-02-27] MEDS: TETANUS/DIPHTHERIA/PERTUSSIS 0.5 ML SYRINGE IM ONE (16:07)
[2017-02-27 16:32] VITALS: BP 170/92
== END 2017-02-27 16:45 | disposition home or self-care (01) ==
LOC: ED 12:27
DX: S90.122A Contusion of left lesser toe(s) without damage to nail, initial encounter (principal); W20.8XXA Other cause of strike by thrown, projected or falling object, initial encounter; Y92.019 Unspecified place in single-family (private) house as the place of occurrence of the external cause; Z23 Encounter for immunization; G35 Multiple sclerosis; E11.9 Type 2 diabetes mellitus without complications; Z79.4 Long term (current) use of insulin; Z79.84 Long term (current) use of oral hypoglycemic drugs
CPT/HCPCS: 73660; 90471; 99282; 99283

== ENCOUNTER 2017-03-05 14:30 | Outpatient (CLI) | payer OTHER ==
[2017-03-05 15:17] LABS: HCT - HEMATOCRIT 40.7 % (37.0-47.0); HGB - HEMOGLOBIN 13.9 g/dL (12.0-16.0); MEAN CORPUSCULAR HEMOGLOBIN 29.4 pg (27.0-31.0); MEAN CORPUSCULAR HGB CONC 34.3 g/dL (32.0-36.0); MEAN CORPUSCULAR VOLUME 85.8 fL (81.0-99.0); MEAN PLATELET VOLUME 10.2 fL (7.9-10.8); RED BLOOD COUNT 4.74 10^6/uL (4.20-5.40); RED CELL DISTRIBUTION WIDTH 13.2 % (12.0-15.0); WHITE BLOOD COUNT 7.2 x10^3/uL (4.8-10.8)
[2017-03-05 15:33] LABS: ALBUMIN/GLOBULIN RATIO 1.2 (1.0-2.2); BILIRUBIN,TOTAL 0.5 mg/dL (0.2-1.0); BUN - BLOOD UREA NITROGEN 16 mg/dL (6-20); CARBON DIOXIDE - CO2 27 mmol/L (21-32); CHLORIDE 105 mmol/L (101-111); CHOL/HDL RATIO 4.9 (<4.4); CHOLESTEROL 211 mg/dL; CREATININE 0.5 mg/dL (0.4-1.0); GFR - MDRD 123 (>89); GLUCOSE 128 mg/dL (70-100); HDL CHOLESTEROL 43 mg/dL; LDL/HDL RATIO 3.3 (<4.4); POTASSIUM 3.8 mmol/L (3.5-5.0); SODIUM 141 mmol/L (135-145); TOTAL PROTEIN 6.7 g/dL (6.7-8.2); TRIGLYCERIDES 121 mg/dL; VLDL CHOLESTEROL 24 mg/dL
[2017-03-05 15:52] LABS: HEMOGLOBIN A1C 1.1 g/dL
== END 2017-03-05 14:31 | disposition home or self-care (01) ==
LOC: LAB 14:30
PROVIDERS: ATTEND Internal Medicine
DX: M19.011 Primary osteoarthritis, right shoulder (principal); E78.4 Other hyperlipidemia; E11.9 Type 2 diabetes mellitus without complications; Z79.899 Other long term (current) drug therapy; R56.9 Unspecified convulsions; E11.65 Type 2 diabetes mellitus with hyperglycemia; G40.89 Other seizures; G35 Multiple sclerosis
CPT/HCPCS: 36415; 80053; 80061; 82043; 82306; 82570; 83036; 84443

== ENCOUNTER 2017-06-27 14:07 | Outpatient (CLI) | payer OTHER ==
--- NOTE | 2017-07-03 11:49 | Mammography Report ---
EXAM: Digital bilateral screening mammogram 06/27/2017. CLINICAL INDICATION: A 67-year-old for screening. COMPARISON: 05/2016, 01/2015, 04/2012, 03/2010. TECHNIQUE: Routine CC and MLO projections were obtained of the breasts. FINDINGS: Parenchymal tissue within the breasts is predominantly fatty replaced. There are no dominant masses, suspicious microcalcifications, or secondary signs of malignancy. In comparison to the previous studies, there are no significant changes. IMPRESSION: NO MAMMOGRAPHIC EVIDENCE OF MALIGNANCY. NO SIGNIFICANT INTERVAL CHANGES. RECOMMENDATION: Screening mammography is recommended annually. BIRADS category 1 - negative. STANDARD QUALIFYING STATEMENTS 1. This examination was reviewed with the aid of Computed Aided Detection (CAD). 2. A negative x-ray report should not delay biopsy if a dominant or clinically suspicious mass is present. More than 5% of cancers are not identified by x-ray. 3. Dense breasts may obscure an underlying neoplasm. TD: 06/28/2017 14:23 [facility]
== END 2017-06-27 14:08 | disposition home or self-care (01) ==
LOC: DI 14:07
PROVIDERS: ATTEND Registered Nurse
DX: Z12.31 Encounter for screening mammogram for malignant neoplasm of breast (principal)
CPT/HCPCS: 77067

== ENCOUNTER 2017-12-05 11:09 | Outpatient (CLI) | payer OTHER ==
[2017-12-05 11:27] LABS: HGB - HEMOGLOBIN 14.9 g/dL (12.0-16.0); MEAN CORPUSCULAR HEMOGLOBIN 29.8 pg (27.0-31.0); MEAN CORPUSCULAR HGB CONC 34.4 g/dL (32.0-36.0); MEAN CORPUSCULAR VOLUME 86.6 fL (81.0-99.0); MEAN PLATELET VOLUME 10.3 fL (7.9-10.8); RED CELL DISTRIBUTION WIDTH 13.1 % (12.0-15.0); WHITE BLOOD COUNT 7.5 x10^3/uL (4.8-10.8)
[2017-12-05 11:44] LABS: HB2 TOTAL 16.5 g/dL; HEMOGLOBIN A1C 1.31 g/dL; HEMOGLOBIN A1C % 9.4 % (4.6-6.2)
[2017-12-05 11:48] LABS: ALBUMIN 3.7 g/dL (3.2-5.5); ALBUMIN/GLOBULIN RATIO 1.1 (1.0-2.2); ALKALINE PHOSPHATASE 115 IU/L (42-121); ALT ALANINE AMINOTRANSFERASE 15 IU/L (10-60); AST ASPARTATE AMINOTRANSFERASE 16 IU/L (10-42); BILIRUBIN,TOTAL 0.7 mg/dL (0.2-1.0); BUN - BLOOD UREA NITROGEN 12 mg/dL (6-20); CALCIUM 8.9 mg/dL (8.5-10.3); CARBON DIOXIDE - CO2 26 mmol/L (21-32); CHLORIDE 101 mmol/L (101-111); CHOL/HDL RATIO 5.1 (<4.4); CHOLESTEROL 220 mg/dL; CREATININE 0.5 mg/dL (0.4-1.0); GFR - MDRD 123 (>89); GLUCOSE 241 mg/dL (70-100); HDL CHOLESTEROL 43 mg/dL; LDL CHOLESTEROL,CALCULATED 143 mg/dL; LDL/HDL RATIO 3.3 (<4.4); SODIUM 136 mmol/L (135-145); TOTAL PROTEIN 7.2 g/dL (6.7-8.2); VLDL CHOLESTEROL 34 mg/dL
[2017-12-05 12:43] LABS: BILIRUBIN,URINE NEGATIVE (NEGATIVE); GLUCOSE, URINE (UA) 100 mg/dL (NEGATIVE); KETONES,URINE (UA) NEGATIVE (NEGATIVE); LEUKOCYTE ESTERASE, URINE SMALL (NEGATIVE); NITRITE,URINE NEGATIVE (NEGATIVE); OCCULT BLOOD,URINE NEGATIVE (NEGATIVE); PROTEIN,URINE NEGATIVE (NEGATIVE); UROBILINOGEN,URINE 0.2 (NORMAL) E.U./dL (NORMAL)
[2017-12-05 12:45] LABS: CLARITY,URINE CLEAR (CLEAR)
== END 2017-12-05 11:10 | disposition home or self-care (01) ==
LOC: LAB 11:09
PROVIDERS: ATTEND Internal Medicine
DX: E78.4 Other hyperlipidemia (principal); E11.9 Type 2 diabetes mellitus without complications; I10 Essential (primary) hypertension; Z79.899 Other long term (current) drug therapy; Z78.9 Other specified health status
CPT/HCPCS: 36415; 80053; 80061; 81003; 82043; 82306; 83036; 83721; 84443; 85027

== ENCOUNTER 2017-12-09 13:56 | Outpatient (CLI) | payer OTHER ==
--- NOTE | 2017-12-10 15:08 | MRI Report ---
EXAM: MRI BRAIN WITHOUT CONTRAST EXAM DATE: 12/09/2017 02:54 PM. CLINICAL HISTORY: 67-year-old woman with history of multiple sclerosis. COMPARISON: 12/22/2012. TECHNIQUE: Multiplanar, multisequence T1-weighted and fluid-sensitive MR sequences of the brain were performed. Sequences optimized for routine evaluation. Other: None. IV Contrast: None. FINDINGS: Parenchyma: Multiple foci of FLAIR hyperintensity are present in the supratentorial white matter, con sistent with the myelinating plaques. Lesions favor the periventricular white matter of the supratent orial parenchyma, but multiple discrete juxtacortical lesions are demonstrated. In the infratentorial parenchyma, faint, ill-defined T2 hyperintensity is present in the brainstem, indeterminate. Compare d to 12/22/2012 exam, there is at least one new lesion in the left frontal periventricular white yuridia er (14 mm; image 18, series 701). No evidence of restricted diffusion to suggest acute infarct. Pituitary: Unremarkable. Ventricles and Extra-axial Spaces: Ventricles are symmetric and normal in size for age. Extra-axial s paces are unremarkable. Orbits: Unremarkable. Sinuses: Paranasal sinuses and mastoid air cells are clear. Major Vascular Flow Voids: Intact. IMPRESSION: 1. Multiple foci of FLAIR hyperintensity are present in the supratentorial periventricular and juxtac ortical white matter and likely the infratentorial parenchyma, consistent with clinical history of mu ltiple sclerosis. At least one new lesion is identified compared to the 02/21/2013 exam. [facility] Referring Provider Line: [phone] SITE ID: [id number]
--- NOTE | 2017-12-10 15:15 | MRI Report ---
EXAM: MRI CERVICAL SPINE WITHOUT CONTRAST EXAM DATE: 12/09/2017 03:47 PM. CLINICAL HISTORY: 67-year-old woman with history of multiple sclerosis. COMPARISONS: 12/22/2012. TECHNIQUE: Multiplanar, multisequence T1-weighted and fluid-sensitive sequences of the cervical spine without contrast. Other: None. FINDINGS: Neurologic Structures: Cervical spinal cord is normal in caliber without definite signal abnormality, but motion artifact decreases sensitivity. Alignment: No scoliosis or spondylolisthesis. Bone Marrow: No gross fractures or bone lesions. Mild degenerative endplate edema with superimposed M odic type II chronic degenerative endplate changes is present at C6-C7, progressed compared to the exam. Interspace Levels/Facets: C2-C3: No significant central canal stenosis. Facet hypertrophy results in mild narrowing of the neur al foramina bilaterally, progressed. C3-C4: Small broad-based disk bulge results in mild narrowing of the central canal, not significantly changed. Uncovertebral joint hypertrophy and facet hypertrophy result in mild narrowing of the neura l foramina bilaterally, left side worse than right, progressed. C4-C5: No significant narrowing of the central canal. Left-sided facet hypertrophy results in moderat e narrowing of the left neural foramen, slightly progressed. C5-C6: Small broad-based disk bulge and focal thickening of the ligamentum flavum result in mild to m oderate narrowing of central canal, stable or minimally progressed. Uncovertebral joint hypertrophy r esults in mild narrowing of the left neural foramen, unchanged. C6-C7: There is mild disk height loss. Posterior disk osteophyte complex and mild thickening of the l igamentum flavum result in [id number] narrowing of the central canal, unchanged. Uncovertebral joint hypertrophy results in mild narrowing of the neural foramina bilaterally, unchanged. C7-T1: Unremarkable. Musculature: Normal. No edema or fatty atrophy. Other: The paravertebral and prevertebral soft tissues are normal. IMPRESSION: 1. Cervical spinal cord is normal in signal. No evidence of demyelinating plaques, but motion artifac t decreases sensitivity. 2. Degenerative changes result in the following: - C2-C3: Mild narrowing of the neural foramina bilaterally, progressed compared to the 02/21/2013 exa m. - C3-C4: Mild narrowing of the central canal, unchanged. Mild narrowing of the neural foramina bilate rally, left side worse than right, progressed. - C4-C5: Moderate narrowing of the left neural foramen, slightly progressed. - C5-C6: Mild to moderate narrowing of the central canal, stable or minimally progressed. Mild narrow ing of the left neural foramen, unchanged. - C6-C7: Mild to moderate narrowing of the central canal, unchanged. Mild narrowing of the neural for ruth bilaterally, unchanged. [facility] Referring Provider Line: [phone] SITE ID: [id number]
== END 2017-12-09 13:57 | disposition home or self-care (01) ==
LOC: DI 13:56
PROVIDERS: ATTEND Psychiatry & Neurology Neurology
DX: G35 Multiple sclerosis (principal); M48.02 Spinal stenosis, cervical region
CPT/HCPCS: 70551; 72141

== ENCOUNTER 2018-09-22 08:44 | Outpatient (CLI) | payer OTHER ==
[2018-09-22 09:09] LABS: BILIRUBIN,URINE NEGATIVE (NEGATIVE); GLUCOSE, URINE (UA) 100 mg/dL (NEGATIVE); KETONES,URINE (UA) NEGATIVE (NEGATIVE); LEUKOCYTE ESTERASE, URINE TRACE (NEGATIVE); NITRITE,URINE NEGATIVE (NEGATIVE); OCCULT BLOOD,URINE NEGATIVE (NEGATIVE); PH,URINE 5.5 PH (5.0-7.5); PROTEIN,URINE NEGATIVE (NEGATIVE); UROBILINOGEN,URINE 0.2 (NORMAL) E.U./dL (NORMAL)
[2018-09-22 09:12] LABS: CLARITY,URINE CLEAR (CLEAR)
[2018-09-22 09:27] LABS: BACTERIA,URINE Rare /HPF (None Seen); RBC,URINE 0-5 /HPF (0-5); SQUAMOUS EPITHELIAL CELL,UR RARE Squamous (<= Few)
[2018-09-22 09:31] LABS: ALBUMIN 3.9 g/dL (3.2-5.5); ALBUMIN/GLOBULIN RATIO 1.2 (1.0-2.2); ALKALINE PHOSPHATASE 109 IU/L (42-121); ALT ALANINE AMINOTRANSFERASE 15 IU/L (10-60); AST ASPARTATE AMINOTRANSFERASE 20 IU/L (10-42); BILIRUBIN,TOTAL 0.7 mg/dL (0.2-1.0); BUN - BLOOD UREA NITROGEN 14 mg/dL (6-20); CALCIUM 8.9 mg/dL (8.5-10.3); CARBON DIOXIDE - CO2 27 mmol/L (21-32); CHLORIDE 100 mmol/L (101-111); CHOL/HDL RATIO 4.4 (<4.4); CHOLESTEROL 222 mg/dL; CREATININE 0.6 mg/dL (0.4-1.0); GFR - MDRD 99 (>89); GLUCOSE 166 mg/dL (70-100); HDL CHOLESTEROL 51 mg/dL; LDL CHOLESTEROL,CALCULATED 145 mg/dL; LDL/HDL RATIO 2.8 (<4.4); SODIUM 139 mmol/L (135-145); TOTAL PROTEIN 7.2 g/dL (6.7-8.2); VLDL CHOLESTEROL 26 mg/dL
[2018-09-22 09:44] LABS: BASOPHILS # (AUTO) 0.1 10^3/uL (0.0-0.1); BASOPHILS % (AUTO) 1.1 %; EOSINOPHILS # (AUTO) 0.3 10^3/uL (0.0-0.7); EOSINOPHILS % (AUTO) 3.4 %; HGB - HEMOGLOBIN 15.4 g/dL (12.0-16.0); LYMPHOCYTES # (AUTO) 2.5 10^3/uL (1.5-3.5); MEAN CORPUSCULAR HEMOGLOBIN 29.6 pg (27.0-31.0); MEAN CORPUSCULAR HGB CONC 34.4 g/dL (32.0-36.0); MEAN CORPUSCULAR VOLUME 86.1 fL (81.0-99.0); MEAN PLATELET VOLUME 10.5 fL (7.9-10.8); MONOCYTES # (AUTO) 0.8 10^3/uL (0.0-1.0); MONOCYTES % (AUTO) 9.2 %; NEUTROPHILS # (AUTO) 5.2 10^3/uL (1.5-6.6); NEUTROPHILS % (AUTO) 58.3 %; PLT - PLATELET COUNT 188 10^3/uL (130-450); RED BLOOD COUNT 5.19 10^6/uL (4.20-5.40); RED CELL DISTRIBUTION WIDTH 13.5 % (12.0-15.0)
== END 2018-09-22 08:45 | disposition home or self-care (01) ==
LOC: LAB 08:44
PROVIDERS: ATTEND Internal Medicine
DX: E78.5 Hyperlipidemia, unspecified (principal); E66.9 Obesity, unspecified; Z78.9 Other specified health status; Z79.899 Other long term (current) drug therapy
CPT/HCPCS: 36415; 80053; 80061; 81001; 81003; 83721; 85025

== ENCOUNTER 2018-12-10 18:46 | Emergency (ER) | payer OTHER ==
[2018-12-10 19:26] LABS: BASOPHILS # (AUTO) 0.1 10^3/uL (0.0-0.1); EOSINOPHILS # (AUTO) 0.4 10^3/uL (0.0-0.7); EOSINOPHILS % (AUTO) 3.7 %; HGB - HEMOGLOBIN 15.3 g/dL (12.0-16.0); LYMPHOCYTES # (AUTO) 2.7 10^3/uL (1.5-3.5); LYMPHOCYTES % (AUTO) 29.1 %; MEAN CORPUSCULAR HEMOGLOBIN 29.3 pg (27.0-31.0); MEAN CORPUSCULAR HGB CONC 34.1 g/dL (32.0-36.0); MEAN CORPUSCULAR VOLUME 86.1 fL (81.0-99.0); MEAN PLATELET VOLUME 9.9 fL (7.9-10.8); MONOCYTES # (AUTO) 0.7 10^3/uL (0.0-1.0); MONOCYTES % (AUTO) 7.5 %; NEUTROPHILS # (AUTO) 5.5 10^3/uL (1.5-6.6); NEUTROPHILS % (AUTO) 58.7 %; PLT - PLATELET COUNT 198 10^3/uL (130-450); RED BLOOD COUNT 5.22 10^6/uL (4.20-5.40); RED CELL DISTRIBUTION WIDTH 13.2 % (12.0-15.0); WHITE BLOOD COUNT 9.4 x10^3/uL (4.8-10.8)
[2018-12-10 19:32] LABS: BILIRUBIN,URINE NEGATIVE (NEGATIVE); GLUCOSE, URINE (UA) 100 mg/dL (NEGATIVE); KETONES,URINE (UA) NEGATIVE (NEGATIVE); LEUKOCYTE ESTERASE, URINE NEGATIVE (NEGATIVE); NITRITE,URINE NEGATIVE (NEGATIVE); OCCULT BLOOD,URINE NEGATIVE (NEGATIVE); PH,URINE 5.5 PH (5.0-7.5); PROTEIN,URINE NEGATIVE (NEGATIVE); UROBILINOGEN,URINE 0.2 (NORMAL) E.U./dL (NORMAL)
[2018-12-10 19:33] LABS: CLARITY,URINE CLEAR (CLEAR)
[2018-12-10 19:44] LABS: ALBUMIN/GLOBULIN RATIO 1.1 (1.0-2.2); BILIRUBIN,TOTAL 0.6 mg/dL (0.2-1.0); CALCIUM 9.2 mg/dL (8.5-10.3); CREATININE 0.6 mg/dL (0.4-1.0); TOTAL PROTEIN 7.5 g/dL (6.7-8.2)
[2018-12-10] MEDS ORDERED: SUCRALFATE 1 GM/10 ML UDC PO STA (20:01)
[2018-12-10] MEDS ORDERED: PHENobarb/HYOSCY/ATROPINE/SCOP 5 ML UDC PO STA (20:01)
[2018-12-10] MEDS ORDERED: LIDOCAINE VISCOUS 2% 15 ML UDC MM STA (20:01)
[2018-12-10] MEDS ORDERED: MAG HYDROX/AL HYDROX/SIMETH 30 ML UDC PO STA (20:01)
--- NOTE | 2018-12-10 20:47 | ED Physician Documentation ---
PD HPI ABD PAIN - Stated complaint Stated Complaint: ABD PX - Chief complaint Chief Complaint: Abd Pain - History obtained from History obtained from: Patient, Family - History of Present Illness Timing - onset: How many days ago (3) Timing - duration: Days (3) Timing - details: Gradual onset Pain level max: 6 Pain level now: 4 Quality: Aching, Pain Location: RUQ Improved by: Other (nothing) Worsened by: Eating Associated symptoms: Nausea. No: Fever, Vomiting, Hematemesis, Diarrhea, Constipation, Melena, Hematochezia, Dysuria, Hematuria Similar symptoms before: Diagnosis (Gastritis, ulcer. Currently on famotidine. Was seen by her doctor and was supposed to start omeprazole, but did not get it filled. Status post cholecystectomy many years ago) Recently seen: Clinic Review of Systems Constitutional: denies: Fever, Chills Respiratory: denies: Cough GI: denies: Vomiting, Diarrhea Skin: denies: Rash Musculoskeletal: denies: Neck pain, Back pain Neurologic: denies: Headache PD PAST MEDICAL HISTORY - Past Medical History Past Medical History: Yes Cardiovascular: Hypertension, Atrial fibrillation Respiratory: Pneumonia Neuro: Migraines, Multiple sclerosis Endocrine/Autoimmune: Type 2 diabetes GI: GERD, Pancreatitis BOARDER MACHINE: None : None HEENT: None Psych: Depression, Anxiety Musculoskeletal: Osteoarthritis Derm: None - Past Surgical History Past Surgical History: Yes General: Cholecystectomy Ortho: Other /BOARDER MACHINE: Dilation and currettage - Present Medications Home Medications: Ambulatory Orders Medication Instructions Recorded Confirmed Glatiramer Acetate [Copaxone] 20 mg INJ DAILY 01/11/15 12/10/18 Insulin NPH Human Isophane 35 units SUBQ BID 01/11/15 12/10/18 [Humulin N] Losartan [Cozaar] 50 mg PO BID 01/11/15 12/10/18 Pregabalin [Lyrica] 300 mg BID 01/11/15 12/10/18 Cholecalciferol [Vitamin D3] 10,000 unit PO DAILY 01/05/17 12/10/18 Butalb/Acetaminophen/Caffeine 1 each PO TID PRN 01/06/17 12/10/18 [Jkffuy-Nsdxuoed-Mdpz 50-325-40] Metoprolol Tartrate [Lopressor] 50 mg PO BID 01/06/17 12/10/18 Sucralfate [Carafate] 1 gm PO ACHS PRN #360 ml 12/10/18 - Allergies Allergies/Adverse Reactions: Allergies Allergy/AdvReac Type Severity Reaction Status Date / Time hydromorphone HCl * AdvReac Emesis Verified 12/10/18 18:53 [From Dilaudid] - Social History Does the pt smoke?: No Smoking Status: Never smoker Does the pt drink ETOH?: No Does the pt have substance abuse?: No - Immunizations Immunizations are current?: Yes Immunizations: TDAP >10years/unknown - POLST Patient has POLST: No PD ED PE NORMAL - Vitals Vital signs reviewed: Yes - General General: Alert and oriented X 3, Well developed/nourished - HEENT HEENT: Moist mucous membranes - Neck Neck: Supple, no meningeal sign - Cardiac Cardiac: RRR, Strong equal pulses - Respiratory Respiratory: No respiratory distress, Clear bilaterally - Abdomen Abdomen: Soft, Non distended, Other (Tender palpation epigastric and right upper quadrant. No peritoneal signs) - Back Back: No spinal TTP - Derm Derm: Warm and dry, No rash - Neuro Neuro: Alert and oriented X 3 - Psych Psych: Normal mood, Normal affect Results - Vitals Vitals: Vital Signs - 24 hr 12/10/18 12/10/18 12/10/18 18:48 18:51 20:50 Temperature 36.7 C 36.6 C 36.2 C L Heart Rate 73 76 Respiratory 18 18 Rate Blood Pressure 153/96 H 153/84 H O2 Saturation 98 98 12/10/18 20:57 Temperature Heart Rate 70 Respiratory 18 Rate Blood Pressure 151/87 H O2 Saturation 96 Oxygen O2 Source Room air - Labs Labs: Laboratory Tests 12/10/18 12/10/18 12/10/18 19:08 19:20 19:20 WBC 9.4 RBC 5.22 Hgb 15.3 Hct 44.9 MCV 86.1 MCH 29.3 MCHC 34.1 RDW 13.2 Plt Count 198 MPV 9.9 Neut # (Auto) 5.5 Lymph # (Auto) 2.7 [place] # (Auto) 0.7 Eos # (Auto) 0.4 Baso # (Auto) 0.1 Absolute Nucleated RBC 0.01 Nucleated RBC % 0.1 Sodium 140 Potassium 3.6 Chloride 99 L Carbon Dioxide 26 Anion Gap 15.0 H BUN 18 Creatinine 0.6 Estimated GFR (MDRD) 99 Glucose 175 H Calcium 9.2 Total Bilirubin 0.6 AST 17 ALT 15 Alkaline Phosphatase 117 Total Protein 7.5 Albumin 4.0 Globulin 3.5 Albumin/Globulin Ratio 1.1 Lipase 24 Urine Color YELLOW Urine Clarity CLEAR Urine pH 5.5 Ur Specific [place] 1.015 Urine Protein NEGATIVE Urine Glucose (UA) 100 H Urine Ketones NEGATIVE Urine Occult Blood NEGATIVE Urine Nitrite NEGATIVE Urine Bilirubin NEGATIVE Urine Urobilinogen 0.2 (NORMAL) Ur Leukocyte Esterase NEGATIVE Ur Microscopic Review NOT INDICATED Urine Culture Comments NOT INDICATED PD MEDICAL DECISION MAKING - ED course Complexity details: reviewed results, re-evaluated patient, considered differential, d/w patient, d/w family ED course: Symptoms resolved with GI cocktail. No acute lab abnormalities. We will have her start her omeprazole at home. Will prescribe Carafate. We will follow-up with her doctor for EGD. Patient counseled regarding signs and symptoms for which I believe and urgent re-evaluation would be necessary. Patient with good understanding of and agreement to plan and is comfortable going home at this time This document was made in part using voice recognition software. While efforts are made to proofread this document, sound alike and grammatical errors may occur. Departure - Departure Disposition: 01 Home, Self Care Clinical Impression: Gastritis and duodenitis Condition: Good Instructions: ED PUD Vs Gastritis Follow-Up: Sandra Ulrich MD [Primary Care Provider] - Within 1 week Prescriptions: Sucralfate [Carafate] 1 gm PO ACHS PRN #360 ml PRN Reason: Abdominal Pain Comments: Start the omeprazole as directed by Dr. Sandra Ulrich. Return if you worsen. Follow-up with your doctor for further care. Discharge Date/Time: 12/10/18 20:59
[2018-12-10 20:59] VITALS: BP 151/87
== END 2018-12-10 20:59 | disposition home or self-care (01) ==
LOC: ED 18:46
DX: K29.70 Gastritis, unspecified, without bleeding (principal); K29.80 Duodenitis without bleeding; I10 Essential (primary) hypertension; E11.9 Type 2 diabetes mellitus without complications; Z79.4 Long term (current) use of insulin; G35 Multiple sclerosis; Z90.49 Acquired absence of other specified parts of digestive tract
CPT/HCPCS: 36415; 80053; 81003; 83690; 85025; 99283; A9270; 81001; 87086

== ENCOUNTER 2019-04-06 12:31 | Outpatient (CLI) | payer OTHER ==
[2019-04-06 12:57] LABS: BILIRUBIN,URINE NEGATIVE (NEGATIVE); GLUCOSE, URINE (UA) NEGATIVE (NEGATIVE); KETONES,URINE (UA) NEGATIVE (NEGATIVE); LEUKOCYTE ESTERASE, URINE SMALL (NEGATIVE); NITRITE,URINE NEGATIVE (NEGATIVE); OCCULT BLOOD,URINE NEGATIVE (NEGATIVE); PROTEIN,URINE NEGATIVE (NEGATIVE); UROBILINOGEN,URINE 0.2 (NORMAL) E.U./dL (NORMAL)
[2019-04-06 13:13] LABS: ALBUMIN 3.8 g/dL (3.2-5.5); ALBUMIN/GLOBULIN RATIO 1.2 (1.0-2.2); ALKALINE PHOSPHATASE 110 IU/L (42-121); ALT ALANINE AMINOTRANSFERASE 14 IU/L (10-60); AST ASPARTATE AMINOTRANSFERASE 14 IU/L (10-42); BILIRUBIN,TOTAL 0.6 mg/dL (0.2-1.0); BUN - BLOOD UREA NITROGEN 14 mg/dL (6-20); CARBON DIOXIDE - CO2 26 mmol/L (21-32); CHLORIDE 108 mmol/L (101-111); CHOL/HDL RATIO 5.1 (<4.4); CHOLESTEROL 231 mg/dL; CREATININE 0.6 mg/dL (0.4-1.0); GFR - MDRD 99 (>89); GLUCOSE 178 mg/dL (70-100); HDL CHOLESTEROL 45 mg/dL; LDL CHOLESTEROL,CALCULATED 152 mg/dL; LDL/HDL RATIO 3.4 (<4.4); SODIUM 141 mmol/L (135-145); VLDL CHOLESTEROL 34 mg/dL
[2019-04-06 13:16] LABS: CLARITY,URINE SL (CLEAR)
[2019-04-06 13:29] LABS: HB2 TOTAL 15.2 g/dL; HEMOGLOBIN A1C 1.15 g/dL; HEMOGLOBIN A1C % 9.1 % (4.6-6.2)
== END 2019-04-06 12:32 | disposition home or self-care (01) ==
LOC: LAB.WCP 12:31
PROVIDERS: ATTEND Internal Medicine
DX: I10 Essential (primary) hypertension (principal); E11.9 Type 2 diabetes mellitus without complications; E78.5 Hyperlipidemia, unspecified
CPT/HCPCS: 36415; 80053; 80061; 81003; 82306; 83036; 83721; 84443

== ENCOUNTER 2019-08-07 15:10 | Outpatient (CLI) | payer BC ==
--- NOTE | 2019-08-08 04:34 | Ultrasound Report ---
Reason: MS Procedure Date: 08/07/2019 Accession Number: [id number] / [id number] Procedure: US - Retroperitoneal CPT Code: Final Report FULL RESULT: EXAM: RENAL ULTRASOUND EXAM DATE: 08/07/2019 03:43 PM. CLINICAL HISTORY: Multiple sclerosis and neurogenic bladder COMPARISON: None. TECHNIQUE: Real-time scanning was performed with static images obtained. FINDINGS: Right Kidney: 10.8 x 5.3 x 4.6 cm. Mid pole simple cyst measuring 2.2 x 2.1 x 2.2 cm. Normal echotexture with no stones, contour-deforming masses, or hydronephrosis. Left Kidney: 11.7 x 5.3 x 5.0 cm. Normal echotexture with no stones, contour-deforming masses, or hydronephrosis. Bladder: The bladder is empty. Other: None. IMPRESSION: Simple right renal cyst. Otherwise normal kidneys. Empty bladder. RADIA
== END 2019-08-07 15:11 | disposition home or self-care (01) ==
LOC: DI 15:10
PROVIDERS: ATTEND Urology
DX: G35 Multiple sclerosis (principal); N31.9 Neuromuscular dysfunction of bladder, unspecified; N28.1 Cyst of kidney, acquired
CPT/HCPCS: 76770

== ENCOUNTER 2020-01-16 08:00 | Outpatient (CLI) | payer BC ==
[2020-01-16 18:48] LABS: CANDIDA GROUP DNA POSITIVE (NEGATIVE); CANDIDA KRUSEI DNA NEGATIVE (NEGATIVE); TRICHOMONAS VAGINALIS DNA NEGATIVE (NEGATIVE)
== END 2020-01-16 23:59 | disposition home or self-care (01) ==
LOC: LAB.R 08:00
PROVIDERS: ATTEND Advanced Practice Midwife
DX: L29.2 Pruritus vulvae (principal)
CPT/HCPCS: 87661; 87801

== ENCOUNTER 2020-04-16 10:33 | Outpatient (CLI) | payer BC ==
[2020-04-16 10:53] LABS: BASOPHILS # (AUTO) 0.1 10^3/uL (0.0-0.1); EOSINOPHILS # (AUTO) 0.3 10^3/uL (0.0-0.7); EOSINOPHILS % (AUTO) 3.7 %; HGB - HEMOGLOBIN 14.6 g/dL (12.0-16.0); LYMPHOCYTES # (AUTO) 2.1 10^3/uL (1.5-3.5); LYMPHOCYTES % (AUTO) 30.4 %; MEAN CORPUSCULAR HEMOGLOBIN 30.4 pg (27.0-31.0); MEAN CORPUSCULAR HGB CONC 34.1 g/dL (32.0-36.0); MEAN CORPUSCULAR VOLUME 89.2 fL (81.0-99.0); MEAN PLATELET VOLUME 11.9 fL (7.9-10.8); MONOCYTES # (AUTO) 0.6 10^3/uL (0.0-1.0); MONOCYTES % (AUTO) 8.1 %; NEUTROPHILS # (AUTO) 3.8 10^3/uL (1.5-6.6); NEUTROPHILS % (AUTO) 56.2 %; PLT - PLATELET COUNT 180 10^3/uL (130-450); RED CELL DISTRIBUTION WIDTH 12.2 % (12.0-15.0); WHITE BLOOD COUNT 6.8 x10^3/uL (4.8-10.8)
[2020-04-16 11:09] LABS: ALBUMIN 3.8 g/dL (3.2-5.5); ALBUMIN/GLOBULIN RATIO 1.1 (1.0-2.2); BILIRUBIN,TOTAL 0.5 mg/dL (0.2-1.0); CALCIUM 9.1 mg/dL (8.5-10.3); CREATININE 0.5 mg/dL (0.4-1.0); TOTAL PROTEIN 7.2 g/dL (6.7-8.2)
[2020-04-16 12:35] LABS: HEMOGLOBIN A1c% 8.9 % (4.27-6.07)
== END 2020-04-16 10:34 | disposition home or self-care (01) ==
LOC: LAB 10:33
PROVIDERS: ATTEND Internal Medicine
DX: E11.9 Type 2 diabetes mellitus without complications (principal); E78.5 Hyperlipidemia, unspecified; E66.9 Obesity, unspecified; G35 Multiple sclerosis; Z79.899 Other long term (current) drug therapy
CPT/HCPCS: 36415; 80053; 82043; 83036; 84443; 85025

== ENCOUNTER 2020-05-15 07:00 | Outpatient (CLI) | payer BC ==
[2020-05-15 18:21] LABS: CANDIDA GROUP DNA POSITIVE (NEGATIVE); CANDIDA KRUSEI DNA NEGATIVE (NEGATIVE); TRICHOMONAS VAGINALIS DNA NEGATIVE (NEGATIVE)
== END 2020-05-15 23:59 | disposition home or self-care (01) ==
LOC: LAB.R 07:00
PROVIDERS: ATTEND Obstetrics & Gynecology
DX: L29.8 Other pruritus (principal); B37.2 Candidiasis of skin and nail
CPT/HCPCS: 87661; 87801

== ENCOUNTER 2020-09-04 13:39 | Outpatient (CLI) | payer BC | END 2020-09-04 13:40 | disposition critical access hospital (66) | LOC: EMS 13:39 | DX: M25.561 Pain in right knee (principal) | CPT/HCPCS: A0425; A0429 ==

== ENCOUNTER 2020-09-04 13:54 | Emergency (ER) | payer BC ==
--- NOTE | 2020-09-04 14:12 | ED Physician Documentation ---
PD HPI LOWER EXT INJURY - Stated complaint Stated Complaint: FALL/L KNEE PX - Chief complaint Chief Complaint: Ext Problem - History obtained from History obtained from: Patient, EMS - Additional information Additional information: 70-year-old woman with history of diabetes and MS was in her usual state of healthToday, she was getting ready for a road trip and carrying something and not using her cane. She tripped on the edge of a carpet and landed directly on both knees and has moderate pain of the right knee and is unable to walk on it. No other injuries. Review of Systems Constitutional: reports: Reviewed and negative Eyes: reports: Reviewed and negative Ears: reports: Reviewed and negative Nose: reports: Reviewed and negative Throat: reports: Reviewed and negative PD PAST MEDICAL HISTORY - Past Medical History Past Medical History: Yes Cardiovascular: Hypertension, Atrial fibrillation Respiratory: Pneumonia Neuro: Migraines, Multiple sclerosis Endocrine/Autoimmune: Type 2 diabetes GI: GERD, Pancreatitis DIRECTOR OF DIAGNOSTIC IMAGING: None : None HEENT: None Psych: Depression, Anxiety Musculoskeletal: Osteoarthritis Derm: None - Past Surgical History Past Surgical History: Yes General: Cholecystectomy Ortho: Other /DIRECTOR OF DIAGNOSTIC IMAGING: Dilation and currettage - Present Medications Home Medications: Ambulatory Orders Medication Instructions Recorded Confirmed Glatiramer Acetate [Copaxone] 20 mg INJ DAILY 01/11/15 09/04/20 Insulin NPH Human Isophane 37 units SUBQ BID 01/11/15 09/04/20 [Humulin N] Losartan [Cozaar] 50 mg PO BID 01/11/15 09/04/20 Pregabalin [Lyrica] 300 mg BID 01/11/15 09/04/20 Butalb/Acetaminophen/Caffeine 1 each PO TID PRN 01/06/17 09/04/20 [Tlywiy-Gozrqyrj-Ozsw 50-325-40] Metoprolol Tartrate [Lopressor] 50 mg PO BID 01/06/17 09/04/20 HYDROcod/ACETAM 5/325 [[place] 5/325] 1 - 2 tab PO Q6H PRN #15 tab 09/04/20 - Allergies Allergies/Adverse Reactions: Allergies Allergy/AdvReac Type Severity Reaction Status Date / Time hydromorphone HCl * AdvReac Emesis Verified 12/10/18 18:53 [From Dilaudid] - Social History Does the pt smoke?: No Smoking Status: Never smoker Does the pt drink ETOH?: No Does the pt have substance abuse?: No - Immunizations Immunizations are current?: Yes Immunizations: TDAP >10years/unknown - POLST Patient has POLST: No PD ED PE NORMAL - Vitals Vital signs reviewed: Yes - General General: Alert and oriented X 3, No acute distress - HEENT HEENT: PERRL, EOMI - Neck Neck: Supple, no meningeal sign, No bony TTP - Cardiac Cardiac: RRR, No murmur - Respiratory Respiratory: No respiratory distress, Clear bilaterally - Abdomen Abdomen: Normal bowel sounds, Soft, Non tender - Back Back: No CVA TTP, No spinal TTP - Derm Derm: Normal color, Warm and dry - Extremities Extremities: Other (TTP R patella also some calf tenderness without deformity negative Homans' sign. No tenderness of the Achilles. She is unable to raise the right leg off the bed due to a combination of weakness and pain. Hip and left lower extremity are nontender.) - Neuro Neuro: Alert and oriented X 3, Normal speech Results - Vitals Vitals: Vital Signs - 24 hr 09/04/20 09/04/20 13:55 15:10 Temperature 36.5 C 36.6 C Heart Rate 66 69 Respiratory 16 18 Rate Blood Pressure 214/88 H 185/93 H O2 Saturation 97 97 Oxygen O2 Source Room air PD MEDICAL DECISION MAKING - ED course ED course: 70-year-old woman with fall and isolated right knee injury. Concern for patellar fracture on exam but x-ray was negative. She did well up with a knee immobilizer and was able to pass a road test with a walker. No evidence of hip injury. Departure - Departure Disposition: 01 Home, Self Care Clinical Impression: Right knee sprain Qualifiers: Encounter type: initial encounter Involved ligament of knee: unspecified ligament Qualified Code(s): S83.91XA - Sprain of unspecified site of right knee, initial encounter Condition: Good Record reviewed to determine appropriate education?: Yes Instructions: ED Sprain Knee Follow-Up: [facility] [Provider Group] Prescriptions: HYDROcod/ACETAM 5/325 [Uneeda 5/325] 1 - 2 tab PO Q6H PRN #15 tab PRN Reason: Pain Comments: Followup with ortho office, Call Monday for an appointment. Until then you may walk and bear weight with the knee immobilizer, you can take the knee immobilizer off for showering or in bed. Return if worsening. Do not drink or drive while taking narcotic pain medication. Note that many narcotic pain relievers also contain Tylenol/acetaminophen. Please ensure that your total dose of acetaminophen from all sources does not exceed 3 g (3000 mg) per day. You may get constipated while on this medication. Take a stool softener such as Colace twice a day while you are on it. Also add an auhj-gpv-jyrocbb laxative such as senna or MiraLAX on any day that you do not have a bowel movement. If you received a narcotic pain medication or sedative while in the emergency department, do not drive for the next 24 hours.
--- NOTE | 2020-09-04 14:40 | XRAY Report ---
PROCEDURE: Knee 4 View RT INDICATIONS: knee inj TECHNIQUE: 4 views of the right knee(s) were acquired. COMPARISON: Mild thinning of the joint interspace on frontal projections both medially and laterally , but no trauma or joint effusion is seen. FINDINGS: Bones: No fractures or dislocations. No suspicious bony lesions. Soft tissues: No joint effusion. No suspicious soft tissue calcifications. IMPRESSION: No fracture found, no joint effusion or intra-articular loose body. Suspect mild degener ative osteoarthritis at the medial and lateral compartments. Reviewed by: Durga Prather MD on 09/04/2020 2:39 PM PST Approved by: Durga Prather MD on 09/04/2020 2:39 PM PST Station ID: [id number]
[2020-09-04 15:10] VITALS: BP 185/93
[2020-09-04] MEDS ORDERED: HYDROcod/ACETAM 5/325 MG TABLET PO STA (15:19)
== END 2020-09-04 15:30 | disposition home or self-care (01) ==
LOC: EDUNIT# → ED 13:54
DX: S83.91XA Sprain of unspecified site of right knee, initial encounter (principal); W01.0XXA Fall on same level from slipping, tripping and stumbling without subsequent striking against object, initial encounter; Y93.01 Activity, walking, marching and hiking; G35 Multiple sclerosis; I10 Essential (primary) hypertension; E11.9 Type 2 diabetes mellitus without complications; Z79.4 Long term (current) use of insulin
CPT/HCPCS: 99283; 99284

== ENCOUNTER 2021-11-06 13:18 | Outpatient (CLI) | payer MEDICARE ==
[2021-11-06 14:10] LABS: BASOPHILS # (AUTO) 0.1 10^3/uL (0.0-0.1); BASOPHILS % (AUTO) 0.8 %; EOSINOPHILS # (AUTO) 0.2 10^3/uL (0.0-0.7); EOSINOPHILS % (AUTO) 3.1 %; HCT - HEMATOCRIT 42.5 % (37.0-47.0); HGB - HEMOGLOBIN 14.5 g/dL (12.0-16.0); LYMPHOCYTES # (AUTO) 1.8 10^3/uL (1.5-3.5); LYMPHOCYTES % (AUTO) 22.6 %; MEAN CORPUSCULAR HEMOGLOBIN 29.7 pg (27.0-31.0); MEAN CORPUSCULAR HGB CONC 34.1 g/dL (32.0-36.0); MEAN CORPUSCULAR VOLUME 86.9 fL (81.0-99.0); MEAN PLATELET VOLUME 11.8 fL (7.9-10.8); MONOCYTES # (AUTO) 0.6 10^3/uL (0.0-1.0); MONOCYTES % (AUTO) 8.2 %; NEUTROPHILS # (AUTO) 5.1 10^3/uL (1.5-6.6); NEUTROPHILS % (AUTO) 64.8 %; PLT - PLATELET COUNT 173 10^3/uL (130-450); RED BLOOD COUNT 4.89 10^6/uL (4.20-5.40); RED CELL DISTRIBUTION WIDTH 12.7 % (12.0-15.0); WHITE BLOOD COUNT 7.8 x10^3/uL (4.8-10.8)
[2021-11-06 14:32] LABS: ALBUMIN/GLOBULIN RATIO 1.2 (1.0-2.2); ALKALINE PHOSPHATASE 107 IU/L (42-121); ALT ALANINE AMINOTRANSFERASE 15 IU/L (10-60); AST ASPARTATE AMINOTRANSFERASE 16 IU/L (10-42); BILIRUBIN,TOTAL 0.4 mg/dL (0.2-1.0); BUN - BLOOD UREA NITROGEN 20 mg/dL (6-20); CALCIUM 9.4 mg/dL (8.5-10.3); CARBON DIOXIDE - CO2 28 mmol/L (21-32); CHLORIDE 101 mmol/L (101-111); CHOL/HDL RATIO 4.2 (<4.4); CHOLESTEROL 230 mg/dL; CREATININE 0.6 mg/dL (0.4-1.0); GFR - MDRD 99 (>89); GLUCOSE 190 mg/dL (70-100); HDL CHOLESTEROL 55 mg/dL; LDL CHOLESTEROL,CALCULATED 152 mg/dL; LDL/HDL RATIO 2.8 (<4.4); POTASSIUM 4.3 mmol/L (3.5-5.0); SODIUM 140 mmol/L (135-145); TOTAL PROTEIN 7.4 g/dL (6.7-8.2); TRIGLYCERIDES 117 mg/dL; VLDL CHOLESTEROL 23 mg/dL
== END 2021-11-06 13:19 | disposition home or self-care (01) ==
LOC: RT 13:18
PROVIDERS: ATTEND Internal Medicine
DX: E11.9 Type 2 diabetes mellitus without complications (principal); I49.8 Other specified cardiac arrhythmias; I10 Essential (primary) hypertension; E78.5 Hyperlipidemia, unspecified; Z79.899 Other long term (current) drug therapy
CPT/HCPCS: 36415; 80053; 80061; 83721; 84443; 85025; 93005

== ENCOUNTER 2022-04-08 15:03 | Outpatient (CLI) | payer MEDICARE ==
--- NOTE | 2022-04-08 18:39 | DEXA Report ---
PROCEDURE: Dexa Spine and/or Hip INDICATIONS: POST MENOPAUSAL TECHNIQUE: Dual energy x-ray absorptiometry (DXA) was performed on a [employer]. Regions measur ed are the AP Spine, femoral neck, and if needed forearm. COMPARISON: 06/10/2016. FINDINGS: Lumbar Spine: Bone Mineral Density 1.353 g/cm/cm,T score 1.4, normal bone density Left Hip: Bone Mineral Density 1.024 g/cm/cm,T score 0.1, normal bone density Left Femoral Neck: Bone Mineral Density 0.946 g/cm/cm, T score -0.7, normal bone density (T score greater or equal to -1.0: NORMAL) (T score from -1.1 to -2.4: OSTEOPENIA) (T score less than or equal to -2.5 to: OSTEOPOROSIS) Impression: Normal bone mineral density. Patients with diagnosis of osteoporosis or osteopenia should have regular bone mineral density assess ment. For those eligible for Medicare, routine testing is allowed once every 2 years. Testing frequ ency can be increased for patients who have rapidly progressing disease or for those who are receivin g medical therapy to restore bone mass. Reviewed by: Heath Saldivar MD on 04/08/2022 6:37 PM PDT Approved by: Heath Saldivar MD on 04/08/2022 6:37 PM PDT Station ID: [id number]
== END 2022-04-08 15:04 | disposition home or self-care (01) ==
LOC: DI 15:03
PROVIDERS: ATTEND Internal Medicine
DX: N95.9 Unspecified menopausal and perimenopausal disorder (principal)

== ENCOUNTER 2022-09-15 13:56 | Outpatient (CLI) | payer OTHER | END 2022-09-15 13:57 | disposition home or self-care (01) | LOC: RT 13:56 | PROVIDERS: ATTEND Internal Medicine | DX: R07.9 Chest pain, unspecified (principal) | CPT/HCPCS: 93005 ==

== ENCOUNTER 2022-09-28 13:54 | Outpatient (CLI) | payer MEDICARE, OTHER ==
--- NOTE | 2022-09-28 16:27 | XRAY Report ---
PROCEDURE: Chest 2 View X-Ray INDICATIONS: CHEST PAIN TECHNIQUE: 2 views of the chest were acquired. COMPARISON: None. FINDINGS: Surgical changes and devices: None. Lungs and pleura: No pleural effusions or pneumothorax. Are increased interstitial markings in both lungs along with cephalization of pulmonary vessels. Mediastinum: Mediastinal contours are normal. Heart size upper limits of normal. Bones and chest wall: No suspicious bony abnormalities. Soft tissues appear unremarkable. IMPRESSION: Heart size at the upper limits of normal with diffuse increased interstitial opacities in both lungs along with cephalization of pulmonary vessels. Findings suggest mild cardiogenic pulmonary edema. Reviewed by: Nghia Galicia MD on 09/28/2022 4:26 PM PDT Approved by: Nghia Galicia MD on 09/28/2022 4:26 PM PDT Station ID: [id number]
== END 2022-09-28 13:55 | disposition home or self-care (01) ==
LOC: DI 13:54
PROVIDERS: ATTEND Internal Medicine
DX: R07.9 Chest pain, unspecified (principal)

== ENCOUNTER 2022-10-12 13:52 | Outpatient (CLI) | payer MEDICARE, OTHER ==
[2022-10-12 14:07] LABS: BASOPHILS # (AUTO) 0.1 10^3/uL (0.0-0.1); BASOPHILS % (AUTO) 0.8 %; EOSINOPHILS # (AUTO) 0.2 10^3/uL (0.0-0.7); EOSINOPHILS % (AUTO) 3.1 %; HCT - HEMATOCRIT 43.7 % (37.0-47.0); HGB - HEMOGLOBIN 14.3 g/dL (12.0-16.0); LYMPHOCYTES # (AUTO) 1.5 10^3/uL (1.5-3.5); LYMPHOCYTES % (AUTO) 19.7 %; MEAN CORPUSCULAR HEMOGLOBIN 28.5 pg (27.0-31.0); MEAN CORPUSCULAR HGB CONC 32.7 g/dL (32.0-36.0); MEAN CORPUSCULAR VOLUME 87.2 fL (81.0-99.0); MEAN PLATELET VOLUME 12.1 fL (7.9-10.8); MONOCYTES # (AUTO) 0.7 10^3/uL (0.0-1.0); MONOCYTES % (AUTO) 8.5 %; NEUTROPHILS # (AUTO) 5.3 10^3/uL (1.5-6.6); NEUTROPHILS % (AUTO) 67.6 %; PLT - PLATELET COUNT 174 10^3/uL (130-450); RED BLOOD COUNT 5.01 10^6/uL (4.20-5.40); RED CELL DISTRIBUTION WIDTH 12.6 % (12.0-15.0); WHITE BLOOD COUNT 7.8 x10^3/uL (4.8-10.8)
[2022-10-12 14:26] LABS: ALBUMIN 3.8 g/dL (3.2-5.5); ALBUMIN/GLOBULIN RATIO 1.2 (1.0-2.2); ALKALINE PHOSPHATASE 123 IU/L (42-121); ALT ALANINE AMINOTRANSFERASE 15 IU/L (10-60); AST ASPARTATE AMINOTRANSFERASE 14 IU/L (10-42); BILIRUBIN,TOTAL 0.5 mg/dL (0.2-1.0); BUN - BLOOD UREA NITROGEN 21 mg/dL (6-20); CALCIUM 8.9 mg/dL (8.5-10.3); CARBON DIOXIDE - CO2 25 mmol/L (21-32); CHLORIDE 105 mmol/L (101-111); CHOL/HDL RATIO 4.3 (<4.4); CHOLESTEROL 204 mg/dL; CREATININE 0.7 mg/dL (0.4-1.0); GFR - MDRD 82 (>89); GLUCOSE 299 mg/dL (70-100); HDL CHOLESTEROL 48 mg/dL; LDL CHOLESTEROL,CALCULATED 135 mg/dL; LDL/HDL RATIO 2.8 (<4.4); POTASSIUM 4.4 mmol/L (3.5-5.0); SODIUM 139 mmol/L (135-145); TOTAL PROTEIN 7.1 g/dL (6.7-8.2); TRIGLYCERIDES 107 mg/dL; VLDL CHOLESTEROL 21 mg/dL
[2022-10-12 14:46] LABS: ESTIMATED AVERAGE GLUCOSE 217 mg/dL (70-100); HEMOGLOBIN A1c% 9.2 % (4.27-6.07)
== END 2022-10-12 13:53 | disposition home or self-care (01) ==
LOC: LAB 13:52
PROVIDERS: ATTEND Internal Medicine
DX: I10 Essential (primary) hypertension (principal); E11.9 Type 2 diabetes mellitus without complications; E78.5 Hyperlipidemia, unspecified; E66.9 Obesity, unspecified; R60.9 Edema, unspecified; G35 Multiple sclerosis; Z79.899 Other long term (current) drug therapy
CPT/HCPCS: 36415; 80053; 80061; 82043; 82570; 83036; 83721; 84443; 85025

== ENCOUNTER 2022-10-17 15:14 | Outpatient (CLI) | payer MEDICARE, OTHER ==
[2022-10-17 15:46] LABS: CREATININE,URINE 88.2 mg/dL; MICROALBUM/CREATININE RATIO,UR 32.9 ug/mg (<30.0); MICROALBUMIN,URINE 2.9 mg/dL (0-300.0)
== END 2022-10-17 15:15 | disposition home or self-care (01) ==
LOC: LAB 15:14
PROVIDERS: ATTEND Internal Medicine
DX: I10 Essential (primary) hypertension (principal); E11.9 Type 2 diabetes mellitus without complications; E78.5 Hyperlipidemia, unspecified; E66.9 Obesity, unspecified; R60.9 Edema, unspecified; G35 Multiple sclerosis; Z79.899 Other long term (current) drug therapy
CPT/HCPCS: 82043; 82570

== ENCOUNTER 2023-03-08 13:56 | Outpatient (CLI) | payer MEDICARE, OTHER ==
[2023-03-08 14:24] LABS: BASOPHILS # (AUTO) 0.1 10^3/uL (0.0-0.1); BASOPHILS % (AUTO) 0.6 %; EOSINOPHILS # (AUTO) 0.2 10^3/uL (0.0-0.7); HCT - HEMATOCRIT 44.4 % (37.0-47.0); HGB - HEMOGLOBIN 14.6 g/dL (12.0-16.0); LYMPHOCYTES # (AUTO) 1.4 10^3/uL (1.5-3.5); LYMPHOCYTES % (AUTO) 13.9 %; MEAN CORPUSCULAR HEMOGLOBIN 28.9 pg (27.0-31.0); MEAN CORPUSCULAR HGB CONC 32.9 g/dL (32.0-36.0); MEAN CORPUSCULAR VOLUME 87.7 fL (81.0-99.0); MEAN PLATELET VOLUME 12.2 fL (7.9-10.8); MONOCYTES # (AUTO) 0.7 10^3/uL (0.0-1.0); MONOCYTES % (AUTO) 7.1 %; NEUTROPHILS # (AUTO) 7.6 10^3/uL (1.5-6.6); NEUTROPHILS % (AUTO) 76.1 %; PLT - PLATELET COUNT 169 10^3/uL (130-450); RED BLOOD COUNT 5.06 10^6/uL (4.20-5.40); RED CELL DISTRIBUTION WIDTH 12.4 % (12.0-15.0)
[2023-03-08 14:25] LABS: BILIRUBIN,URINE NEGATIVE (NEGATIVE); CLARITY,URINE CLEAR (CLEAR); GLUCOSE, URINE (UA) >=1000 mg/dL (NEGATIVE); KETONES,URINE (UA) NEGATIVE (NEGATIVE); LEUKOCYTE ESTERASE, URINE NEGATIVE (NEGATIVE); NITRITE,URINE NEGATIVE (NEGATIVE); OCCULT BLOOD,URINE NEGATIVE (NEGATIVE); PH,URINE 5.5 PH (5.0-7.5); PROTEIN,URINE NEGATIVE (NEGATIVE); UROBILINOGEN,URINE 0.2 (NORMAL) E.U./dL (NORMAL)
[2023-03-08 14:46] LABS: BACTERIA,URINE Few /HPF (None Seen); RBC,URINE None Seen /HPF (0-5); SQUAMOUS EPITHELIAL CELL,UR MOD Squamous (<= Few); WBC,URINE 0-3 /HPF (0-5)
[2023-03-08 14:47] LABS: CASTS, URINE 3-5 Hyaline Casts /LPF; CRYSTALS,URINE 26-50 Uric Acid /LPF
[2023-03-08 14:52] LABS: CREATININE,URINE 127.6 mg/dL; MICROALBUM/CREATININE RATIO,UR 20.4 ug/mg (<30.0); MICROALBUMIN,URINE 2.6 mg/dL
[2023-03-08 14:55] LABS: ALBUMIN 3.8 g/dL (3.2-5.5); ALBUMIN/GLOBULIN RATIO 1.5 (1.0-2.2); ALKALINE PHOSPHATASE 123 IU/L (42-121); ALT ALANINE AMINOTRANSFERASE 9 IU/L (10-60); AST ASPARTATE AMINOTRANSFERASE 9 IU/L (10-42); BILIRUBIN,TOTAL 0.3 mg/dL (0.2-1.0); BUN - BLOOD UREA NITROGEN 25 mg/dL (6-20); CALCIUM 9.2 mg/dL (8.5-10.3); CARBON DIOXIDE - CO2 31 mmol/L (21-32); CHLORIDE 103 mmol/L (101-111); CHOL/HDL RATIO 3.5 (<4.4); CHOLESTEROL 159 mg/dL; CREATININE 0.7 mg/dL (0.6-1.3); GFR - MDRD 82 (>89); GLUCOSE 339 mg/dL (74-104); HDL CHOLESTEROL 45 mg/dL; LDL CHOLESTEROL,CALCULATED 80 mg/dL; LDL/HDL RATIO 1.8 (<4.4); MAGNESIUM 1.6 mg/dL (1.7-2.3); POTASSIUM 4.2 mmol/L (3.5-4.5); SODIUM 139 mmol/L (135-145); TOTAL PROTEIN 6.4 g/dL (6.4-8.9); TRIGLYCERIDES 168 mg/dL (48-352); VLDL CHOLESTEROL 34 mg/dL
[2023-03-08 14:58] LABS: THYROID STIMULATING HORMONE 0.35 uIU/mL (0.34-5.60)
[2023-03-08 15:06] LABS: ESTIMATED AVERAGE GLUCOSE 243 mg/dL (70-100); HEMOGLOBIN A1c% 10.1 % (4.27-6.07)
== END 2023-03-08 13:57 | disposition home or self-care (01) ==
LOC: LAB 13:56
PROVIDERS: ATTEND Internal Medicine
DX: E11.9 Type 2 diabetes mellitus without complications (principal); I10 Essential (primary) hypertension; G35 Multiple sclerosis; R60.9 Edema, unspecified; E66.9 Obesity, unspecified; E78.5 Hyperlipidemia, unspecified
CPT/HCPCS: 36415; 80053; 80061; 81001; 82043; 82306; 82570; 83036; 83721; 83735; 84443; 85025; 87086

== ENCOUNTER 2023-07-13 14:45 | Outpatient (CLI) | payer MEDICARE, OTHER | END 2023-07-13 14:46 | disposition home or self-care (01) | LOC: DI 14:45 | PROVIDERS: ATTEND Internal Medicine Cardiovascular Disease | DX: I20.89 Other forms of angina pectoris (principal); I48.0 Paroxysmal atrial fibrillation | CPT/HCPCS: 93306 ==

== ENCOUNTER 2024-09-10 04:50 | Inpatient (IN) ==
--- NOTE | 2024-09-10 04:59 | ED Physician Documentation ---
History of Present Illness Stated complaint Stated Complaint: AFIB Chief complaint Chief Complaint: Cardiac History obtained from History obtained from: Patient and EMS Additonal information Additional information: 74yF with pmh BL LE wounds getting regular wound care, on amoxicillin (recently stopped due to poorly tolerated), cefadroxil, htn, LE edema on lasix and hctz, afib on metoprolol, p/w soa at home and multiple chronic problems. denies cp, n/v fever. patient is a poor historian. Meds/Allgy Home Medications Ambulatory Orders Medication Instructions Recorded Confirmed glatiramer 20 mg/mL subcutaneous 20 mg INJ DAILY 01/11/15 08/23/24 syringe (Copaxone) losartan 25 mg tablet 50 mg PO BID 01/11/15 08/23/24 pregabalin 300 mg capsule (Lyrica) 300 mg PO BID seizure/pain 01/11/15 08/23/24 fhrmkmkths-gpljqjlobmkbv-zewpbpuw 1 ea PO TID PRN Headache 01/06/17 08/23/24 50 mg-325 mg-40 mg tablet metoprolol tartrate 50 mg tablet 50 mg PO BID 01/06/17 08/23/24 furosemide 40 mg tablet 40 mg PO ONCE edema management 08/23/24 08/23/24 insulin NPH isoph U-100 human 100 40 unit subcut BID 08/23/24 08/23/24 unit/mL (3 mL) subcutaneous pen (Humulin N NPH U-100 Insulin KwikPen) potassium chloride 8 mEq 8 meq PO ONCE 08/23/24 08/23/24 tablet,extended release amoxicillin 875 mg tablet 875 mg PO BID 10 days #20 tabs 08/27/24 levofloxacin 750 mg tablet 750 mg PO DAILY 10 days #10 tabs 08/27/24 Allergies Allergies Allergy/AdvReac Type Severity Reaction Status Date / Time hydromorphone HCl * (From AdvReac Emesis Verified 12/10/18 18:53 Dilaudid) PFSH Active Problems All Active Problems (Updated 09/10/24 @ 06:36 by Tonia Jade MD) Acute exacerbation of CHF (congestive heart failure) (Acute) Encounter for long-term (current) use of other medications (Acute) Venous insufficiency (chronic) (peripheral) (Acute) Edema due to congestive heart failure (Acute) Non-pressure chronic ulcer left lower leg, limited to breakdown skin (Acute) Non-pressure chronic ulcer of other part of right lower leg with fat layer exposed (Acute) Diastolic congestive heart failure (Acute) Cellulitis of right lower limb (Acute) Gastritis and duodenitis (Acute) Contusion, toes (Acute) Intractable low back pain (Acute) Esophageal obstruction due to food impaction (Acute) Abdominal pain (Acute) Left-sided chest wall pain (Acute) Social History Social History Smoking Status: Never smoker Do you dip or chew tobacco?: No Do you vape?: No Relationship: Home Mobility Equipment: Wheeled walker Do you feel safe in your home environment?: Yes Suffered physical, verbal, emotional, or financial abuse?: No History of Abuse: No POLST Patient has POLST: No Exam Constitutional deconditioned, elderly, morbidly obese woman in [facility] normocephalic, head/scalp atraumatic and oropharynx normal Eyes PERRL and EOMs intact bilaterally Respiratory breath sounds equal bilaterally, normal respiratory effort and clear to auscultation bilaterally Cardiovascular normal heart rate noted and regular rhythm noted Gastrointestinal abdomen normal to inspection, abdomen soft to palpation and nontender to palpation Extremities BL LE wounds with dressings in place Results Vitals Vitals: Vital Signs - 24 hr 09/10/24 04:55 Temperature 36.6 C Temperature Source Oral Pulse Rate 80 Respiratory Rate 20 Blood Pressure 145/104 H O2 Saturation 93 O2 Source Room air Pain Intensity 0 Oxygen O2 Source Room air EKG (time done) 0456: EKG releavant findings:: EKG personally interpreted by author of this note. Relevant findings are: Rate: Rate (enter#) (80) Rhythm: Other (ventricular trigeminy) Intervals: Normal IA QRS: Wide QRS (146) and RBBB Labs Labs: Laboratory Tests 09/10/24 09/10/24 09/10/24 05:09 05:18 06:06 WBC 11.2 H RBC 4.76 Hgb 14.0 Hct 43.6 MCV 91.6 MCH 29.4 MCHC 32.1 RDW 13.1 Plt Count 141 MPV 14.0 H Neut # (Auto) 8.4 H Lymph # (Auto) 1.6 [place] # (Auto) 0.9 Eos # (Auto) 0.2 Baso # (Auto) 0.1 Absolute Nucleated RBC 0.00 Nucleated RBC % 0.0 VBG pH 7.446 H VBG pCO2 41.0 VBG pO2 70.1 H VBG HCO3 28.5 H VBG Total CO2 29.8 H VBG O2 Saturation 94.0 H VBG Base Excess 4.3 H Sodium 138 Potassium 4.4 Chloride 103 Carbon Dioxide 28 Anion Gap 7.0 BUN 29 H Creatinine 0.8 Estimated GFR (MDRD) 70 L Glucose 247 H Calcium 9.0 Total Bilirubin 0.5 AST 16 ALT 13 Alkaline Phosphatase 97 B-Natriuretic Peptide 1890 H Total Protein 6.7 Albumin 3.5 Globulin 3.2 Albumin/Globulin Ratio 1.1 Lipase 15 Nasal Adenovirus (PCR) NOT DETECTED Nasal B. parapertussis DNA (PCR) NOT DETECTED Nasal Coronavir 229E PCR NOT DETECTED Nasal Coronavir HKU1 PCR NOT DETECTED Nasal Coronavir NL63 PCR NOT DETECTED Nasal Coronavir OC43 PCR NOT DETECTED Nasal Enterovir/Rhinovir PCR NOT DETECTED Nasal Influenza B PCR NOT DETECTED Nasal Influenza A PCR NOT DETECTED Nasal Parainfluen 1 PCR NOT DETECTED Nasal Parainfluen 2 PCR NOT DETECTED Nasal Parainfluen 3 PCR NOT DETECTED Nasal Parainfluen 4 PCR NOT DETECTED Nasal RSV (PCR) NOT DETECTED Nasal B.pertussis DNA PCR NOT DETECTED Nasal C.pneumoniae (PCR) NOT DETECTED Adan Human Metapneumo PCR NOT DETECTED Nasal M.pneumoniae (PCR) NOT DETECTED Nasal SARS-CoV-2 (PCR) NOT DETECTED PD Medical Decision Making ED course ED course: 74yF presents for medical evaluation. patient called EMS after feeling generally unwell all night. patient expressed soa and multiple chronic complaints. ems states it was difficult to get her to explain precisely why she called 911. plan to undertake generalized workup and reevaluate. Patient's cxr shows pulmonary overload c/w chf exacerbation. Her bnp is 1890. RVP negative. Glucose 247. Treated with 60mg IV lasix and 7mg IV insulin. Plan to endorse to incoming daytime ed md at 7am shift change. Discharge Plan Discharge Condition: Fair Clinical Impression: Acute exacerbation of CHF (congestive heart failure) Prescriptions: No Action losartan 25 MG tablet 50 mg PO BID pregabalin [Lyrica] 300 MG capsule 300 mg PO BID glatiramer [Copaxone] 20 MG/ML syringe 20 mg INJ DAILY hjuniuxrsm-mqevgndaeykgm-qujd 1 EACH tablet 1 ea PO TID PRN (Reason: Headache) metoprolol tartrate 50 MG tablet 50 mg PO BID Patient Comments: Pt states she takes 1 and 1/2 pill in the morning per her MD instructions and then one pill at night for a total of 125 mg. Rx Instructions: 3 25 mg tabs furosemide 40 mg tablet 40 mg PO ONCE Patient Comments: TAKE 1 TABLET BY MOUTH ONCE DAILY Humulin N NPH Insulin KwikPen 100 unit/mL (3 mL) insulin pen 40 unit SUBCUT BID Patient Comments: INJECT 37 UNITS SUBCUTANEOUSLY TWICE DAILY Rx Instructions: 40 units BID subcutaneously; potassium chloride 8 mEq tablet extended release 8 meq PO ONCE Patient Comments: TAKE 1 TABLET BY MOUTH ONCE DAILY WITH LASIX amoxicillin 875 mg tablet 875 mg PO BID 10 Days Qty: 20 0RF levofloxacin 750 mg tablet 750 mg PO DAILY 10 Days Qty: 10 0RF Print Language: Jordanian Stand Alone Forms: PCP List
[2024-09-10 05:21] LABS: BASOPHILS # (AUTO) 0.1 10^3/uL (0.0-0.1); BASOPHILS % (AUTO) 0.7 %; EOSINOPHILS # (AUTO) 0.2 10^3/uL (0.0-0.7); EOSINOPHILS % (AUTO) 1.5 %; HCT - HEMATOCRIT 43.6 % (37.0-47.0); LYMPHOCYTES # (AUTO) 1.6 10^3/uL (1.5-3.5); LYMPHOCYTES % (AUTO) 14.6 %; MEAN CORPUSCULAR HEMOGLOBIN 29.4 pg (27.0-31.0); MEAN CORPUSCULAR HGB CONC 32.1 g/dL (32.0-36.0); MEAN CORPUSCULAR VOLUME 91.6 fL (81.0-99.0); MONOCYTES # (AUTO) 0.9 10^3/uL (0.0-1.0); MONOCYTES % (AUTO) 7.9 %; NEUTROPHILS # (AUTO) 8.4 10^3/uL (1.5-6.6); NEUTROPHILS % (AUTO) 74.9 %; PLT - PLATELET COUNT 141 10^3/uL (130-450); RED BLOOD COUNT 4.76 10^6/uL (4.20-5.40); RED CELL DISTRIBUTION WIDTH 13.1 % (12.0-15.0); WHITE BLOOD COUNT 11.2 x10^3/uL (4.8-10.8)
[2024-09-10 05:29] LABS: ALBUMIN 3.5 g/dL (3.2-5.5); ALBUMIN/GLOBULIN RATIO 1.1 (1.0-2.2); BILIRUBIN,TOTAL 0.5 mg/dL (0.2-1.0); CREATININE 0.8 mg/dL (0.6-1.3); POTASSIUM 4.4 mmol/L (3.5-4.5); TOTAL PROTEIN 6.7 g/dL (6.4-8.9)
[2024-09-10 05:33] LABS: VBG BASE EXCESS 4.3 mmol/L (-2 - +2); VBG PH 7.446 (7.31-7.41); VBG PO2 70.1 mmHg (25-47); VBG TOTAL CO2 29.8 mmol/L (24-29)
[2024-09-10] MEDS: ONDANSETRON 4 MG/2 ML VIAL IVP STA (06:08)
[2024-09-10] MEDS: FAMOTIDINE 20 MG/2 ML VIAL IVP STA (06:09)
[2024-09-10 06:17] LABS: B. PARAPERTUSSIS- RESP PCR PAN NOT DETECTED; B. PERTUSSIS- RESP PCR PANEL NOT DETECTED; C. PNEUMONIAE- RESP PCR PANEL NOT DETECTED; CORONAVIRUS 229E-RESP PCR NOT DETECTED; CORONAVIRUS HKU1-RESP PCR NOT DETECTED; CORONAVIRUS NL63-RESP PCR NOT DETECTED; CORONAVIRUS OC43-RESP PCR NOT DETECTED; HUMAN METAPNEUMOVIRUS NOT DETECTED; INFLUENZA A- RESP PCR PANEL NOT DETECTED; INFLUENZA B - RESP PCR PANEL NOT DETECTED; M. PNEUMONIAE- RESP PCR PANEL NOT DETECTED; PARAINFLUENZA VIRUS 1 NOT DETECTED; PARAINFLUENZA VIRUS 2 NOT DETECTED; PARAINFLUENZA VIRUS 4 NOT DETECTED; RHINOVIRUS/ENTEROVIRUS NOT DETECTED; RSV- RESP PCR PANEL NOT DETECTED; SARS-CoV-2 -RESP PCR PANEL NOT DETECTED
[2024-09-10] MEDS: FUROSEMIDE 40 MG/4 ML VIAL IVP STA (07:21)
--- NOTE | 2024-09-10 07:29 | ED Physician Documentation ---
ED Addendum Addendum Addendum: Care from Dr. Jade at 7 AM shift change. Briefly this is a 74-year-old woman with history of A-fib who came in with A-fib and shortness of breath. She is rate controlled. There is evidence of CHF with elevated BNP and pulmonary edema on chest x-ray. She got 60 mg of Lasix IV. She is requiring oxygen for hypoxemia. Spoke with Dr. Hall for admission at 7:28 AM. Discharge Plan Discharge Patient Disposition: 66 [facility] DC/Xfer Condition: Fair Clinical Impression: Acute exacerbation of CHF (congestive heart failure) Prescriptions: No Action losartan 25 MG tablet 50 mg PO BID pregabalin [Lyrica] 300 MG capsule 300 mg PO BID glatiramer [Copaxone] 20 MG/ML syringe 20 mg INJ DAILY [id number]-qdicwnuujkfmg-vrfw 1 EACH tablet 1 ea PO TID PRN (Reason: Headache) metoprolol tartrate 50 MG tablet 50 mg PO BID Patient Comments: Pt states she takes 1 and 1/2 pill in the morning per her MD instructions and then one pill at night for a total of 125 mg. Rx Instructions: 3 25 mg tabs furosemide 40 mg tablet 40 mg PO ONCE Patient Comments: TAKE 1 TABLET BY MOUTH ONCE DAILY Humulin N NPH Insulin KwikPen 100 unit/mL (3 mL) insulin pen 40 unit SUBCUT BID Patient Comments: INJECT 37 UNITS SUBCUTANEOUSLY TWICE DAILY Rx Instructions: 40 units BID subcutaneously; potassium chloride 8 mEq tablet extended release 8 meq PO ONCE Patient Comments: TAKE 1 TABLET BY MOUTH ONCE DAILY WITH LASIX amoxicillin 875 mg tablet 875 mg PO BID 10 Days Qty: 20 0RF levofloxacin 750 mg tablet 750 mg PO DAILY 10 Days Qty: 10 0RF Print Language: Turkish Stand Alone Forms: PCP List
[2024-09-10] MEDS: INSULIN REGULAR, HUMAN 300 UNIT/3 ML PEN IVP STA (07:41)
[2024-09-10] MEDS: INSULIN REGULAR, HUMAN 300 UNIT/3 ML PEN SUBQ STA (07:43)
[2024-09-10] MEDS ORDERED: IPRATROPIUM/ALBUTEROL 3 ML NEB INH PRN (09:37)
[2024-09-10] MEDS: methylPREDNISolone SUCCINATE 40 MG/ML VIAL IVP STA (09:43)
[2024-09-10] MEDS: FAMOTIDINE 20 MG/2 ML VIAL IVP SCH (09:43)
[2024-09-10] MEDS: SODIUM CHLORIDE FLUSH 0.9% 10 ML SYRINGE IVP SCH (09:44)
[2024-09-10] MEDS ORDERED: SODIUM CHLORIDE FLUSH 0.9% 10 ML SYRINGE IVP PRN (10:16)
--- NOTE | 2024-09-10 10:31 | XRAY Report ---
PROCEDURE: XR Chest 1V INDICATIONS: JEAN-CLAUDE, ?pneumo, diminished breath sounds R side TECHNIQUE: One view of the chest was acquired. COMPARISON: Same-day radiograph, 08/02/2024 FINDINGS AND IMPRESSION: Moderate diffuse lung disease, with diffuse airspace opacities, interstitial thickening, and small pl eural effusions. This could represent edema and/or infection. Consider future imaging surveillance to assess for resolution. Heart borders are obscured. There may be cardiomegaly. Degenerative osseous changes. Reviewed by: Dante Gao MD on 09/10/2024 10:29 AM PST Approved by: Dante Gao MD on 09/10/2024 10:29 AM PST Station ID: [id number]
[2024-09-10] MEDS ORDERED: ZINC OXIDE 20% OINT 30 GM TUBE TOP PRN (10:39)
--- NOTE | 2024-09-10 11:35 | HISTORY & PHYSICAL EXAMINATION ---
Chief Complaint Chief Complaint Chief Complaint: Shortness of breath History of Present Illness Admitted From Admitted From:: Home History Obtained From Records Reviewed: EMR History obtained from: Patient Exam Limitations: Dyspnea History of Present Illness HPI Comment/Other: Patient is a 74-year-old female with a history of diastolic heart failure who presents with worsening shortness of breath. Patient states that the shortness of breath started yesterday, and got progressively worse overnight. She has no history of lung disease including asthma or COPD, nor does she use any inhalers. She lives with her , who has not exhibited any symptoms at all. She has no recent travel as well. She also feels like she has a cough, with no sputum production. She denies any fevers or chills. In the emergency room, she was found to be hypoxic to 88%, requiring 2 L of oxygen. She was normotensive, with a respiratory rate of 16, pulse of 83, and was afebrile as well. Lab work showed a mild leukocytosis of 11.2. VBG shows pH of 7.446, and her BMP was largely unremarkable. Her BNP was elevated at 1890. Chest x-ray showed increased vascular surgery suggestive edema, as well as a possible superimposed interstitial pneumonia. [facility] she is very tachypneic, and breathing in the high 30s. She was transferred to the ICU. Lung exam showed decreased air entry bilaterally, mild bibasilar crackles, as well as some wheezing. She was started on Solu-Medrol, Rocephin and azithromycin for community-acquired pneumonia, as well as given a dose of IV Lasix. Meds/Allgy Home Medications Ambulatory Orders Medication Instructions Recorded Confirmed glatiramer 20 mg/mL subcutaneous 20 mg INJ DAILY 01/11/15 09/10/24 syringe (Copaxone) losartan 25 mg tablet 50 mg PO BID 01/11/15 09/10/24 pregabalin 300 mg capsule (Lyrica) 300 mg PO BID seizure/pain 01/11/15 09/10/24 dqbnlaplhc-aftrbvvejemdi-axkxkuit 1 ea PO TID PRN Headache 01/06/17 09/10/24 50 mg-325 mg-40 mg tablet metoprolol tartrate 50 mg tablet See Rx Instructions PO .COMPLEX 01/06/17 09/10/24 furosemide 40 mg tablet 40 mg PO DAILY edema management 08/23/24 09/10/24 insulin NPH isoph U-100 human 100 37 unit subcut BID 08/23/24 09/10/24 unit/mL (3 mL) subcutaneous pen (Humulin N NPH U-100 Insulin KwikPen) potassium chloride 8 mEq 8 meq PO ONCE 08/23/24 09/10/24 tablet,extended release Allergies Allergies Allergy/AdvReac Type Severity Reaction Status Date / Time hydromorphone HCl * (From AdvReac Emesis Verified 12/10/18 18:53 Dilaudid) [facility], [facility] Active Problems All Active Problems (Updated 09/10/24 @ 13:37 by Justina Ross MD) Acute hypoxic respiratory failure (Acute) Type 2 diabetes mellitus with foot ulcer (Acute) Non-pressure chronic ulcer of other part of right foot with fat layer exposed (Acute) Acute exacerbation of CHF (congestive heart failure) (Acute) Encounter for long-term (current) use of other medications (Acute) Venous insufficiency (chronic) (peripheral) (Acute) Edema due to congestive heart failure (Acute) Non-pressure chronic ulcer left lower leg, limited to breakdown skin (Acute) Non-pressure chronic ulcer of other part of right lower leg with fat layer exposed (Acute) Diastolic congestive heart failure (Acute) Cellulitis of right lower limb (Acute) Gastritis and duodenitis (Acute) Contusion, toes (Acute) Intractable low back pain (Acute) Esophageal obstruction due to food impaction (Acute) Abdominal pain (Acute) Left-sided chest wall pain (Acute) Social History Social History Smoking Status: Never smoker Do you dip or chew tobacco?: No Do you vape?: No Relationship: Level: Independent Home Mobility Equipment: Walker Do you feel safe in your home environment?: Yes Suffered physical, verbal, emotional, or financial abuse?: No History of Abuse: No POLST Patient has POLST: No POLST Status: Full Code Review of Systems Constitutional Reports: Fatigue, Malaise, Weakness and Diaphoresis; Denies: Fever or Chills Eyes Denies: Pain, Irritation, Amaurosis, Blurry vision, Floaters or Field loss Ears, nose, mouth, and throat Denies: Ear pain, Ear discharge, Hearing loss, Hearing aids, Tinnitus, Difficulty swallowing or Neck pain Cardiovascular Reports: Irregular heart rate, edema, swelling of feet/ankles, shortness of breath with exertion, shortness of breath when lying down and Decreased exercise tolerance; Denies: chest pain, palpitations, Syncope or lightheadedness Respiratory Reports: Shortness of breath, Cough and Wheezing; Denies: Sputum production, Change in phlegm color, Apnea or Snoring Gastrointestinal Reports: Heartburn; Denies: Abdominal pain, Abdominal distention, Nausea, Vomiting, Poor appetite, Bile emesis, Difficulty swallowing or Feeling full early Genitourinary Reports: Urinary frequency; Denies: Painful urination, Urinary urgency, Nocturia, Urinary incontinence, Blood in urine, Decreased urine ouput or Flank pain Musculoskeletal Reports: Extremity swelling; Denies: Back pain, Neck pain, Extremity pain, Gout or Joint pain Integumentary/Breast Reports: Rash (chronic wounds of bilateral lower extremities ); Denies: Itching, Dryness, Redness, Skin pain or Skin tenderness Neurological Reports: Headache and General weakness; Denies: Focal weakness, Weakness in extremities, Numbness in extremities or Pre-existing deficit Psychiatric Denies: Depression, Anxiety, Mood swings, Panic attacks or Change in sleep pattern Endocrine Reports: Fatigue; Denies: Excessive urination, Excessive thirst or Polyphagia Hematologic/Lymphatic Denies: Anemia, Easy bruising or Petechiae Allergic/Immunologic Reports: Wheezing Prior Level of Functionality: Independent of ADLs. Exam Constitutional normal general appearance, distress noted (moderate) and (respiratory), abnormal body habitus (overweight), no limitations and alert HENMT normocephalic, head/scalp atraumatic and hearing grossly normal bilaterally Eyes PERRL, EOMs intact bilaterally and conjunctivae normal Neck/C-Spine visual inspection normal, trachea midline and cervical spine nontender Lymph no lymphadenopathy noted Chest inspection of chest normal and palpation of chest normal Respiratory breath sounds equal bilaterally, abnormal respiratory effort (shallow breathing), (pursed lip breathing) and (labored), wheezing noted (expiratory wheezes), rales noted (throughout) and use of accessory muscles noted Cardiovascular normal heart rate noted, regular rhythm noted, no gallop, no rub and no murmur Gastrointestinal abdomen normal to inspection, abdomen soft to palpation, nontender to palpation and nontender to percussion Genitourinary no CVA tenderness Extremities normal to inspection, normal to palpation, no tenderness and full ROM Neurology no movement abnormality noted Psychiatry oriented x3, thought process normal, cooperative and affect normal Skin skin color normal, no rash and wound(s) noted (chronic wounds of bilateral lower extremities, not unwrapped) Conclusion/Plan Problem List (1) Acute hypoxic respiratory failure: Plan: Patient presents with worsening tachypnea, diffuse rales, some expiratory wheezes. Does have a history of diastolic, grade 1 impairment of the heart. Chest x- ray appears fluid overloaded. BNP is elevated. Continue IV Lasix 40 mg twice daily. For wheezing, trialed one dose of IV Solu-Medrol. Will do DuoNebs as needed. Concern for possible superimposed interstitial pneumonia. Continue Rocephin and azithromycin at this time. (2) Acute exacerbation of CHF (congestive heart failure): Plan: Management as above. Qualifiers: Heart failure type: diastolic Qualified Code(s): I50.33 - Acute on chronic diastolic (congestive) heart failure (3) Venous insufficiency (chronic) (peripheral): Plan: Chronic ulcerations of bilateral lower extremities; continue management in outpatient setting, wound care. (4) Type 2 diabetes mellitus with foot ulcer: Plan: Continue sliding scale insulin, hypoglycemic protocol in place. Will give 5 units Lantus now, 5 units at night; uptitrate as requried. 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
[2024-09-10] MEDS: INSULIN LISPRO 300 UNIT/3 ML PEN SUBQ SCH (12:29)
[2024-09-10] MEDS: NYSTATIN POWDER 15 GM TOP SCH (12:30)
--- NOTE | 2024-09-10 12:54 | XRAY Report ---
PROCEDURE: XR Chest 1V INDICATIONS: soa TECHNIQUE: One view of the chest was acquired. COMPARISON: Chest x-ray February 1725 FINDINGS: Surgical changes and devices: None. Lungs and pleura: Overall appearance of increased vascularity. Mediastinum: Mediastinal contours appear normal. Heart size is enlarged. Bones and chest wall: No suspicious bony lesions. Overlying soft tissues appear unremarkable. IMPRESSION: Increased vascularity suggestive of edema. Superimposed interstitial pneumonia cannot be definitively excluded. The above findings are concordant with preliminary report. Reviewed by: Vera Mak MD on 09/10/2024 12:53 PM PST Approved by: Vera Mak MD on 09/10/2024 12:53 PM [facility] Station ID: [id number]
[2024-09-10] MEDS: cefTRIAXone 1 GM VIAL IVP SCH (14:13)
[2024-09-10] MEDS: CALCIUM CARBONATE CHEW 500 MG TABLET PO PRN (14:13)
[2024-09-10] MEDS: INSULIN GLARGINE-YFGN 300 UNIT/3 ML PEN SUBQ ONE (14:13)
[2024-09-10] MEDS: AZITHROMYCIN 250 MG TABLET PO SCH (14:13)
--- NOTE | 2024-09-10 15:48 | PHARMACY PROGRESS NOTE ---
Best Possible Medication History Admit Date and Time: 09/10/24 0951 Home Medications Medication Instructions Recorded Confirmed Type glatiramer 20 mg/mL subcutaneous 20 mg INJ DAILY 01/11/15 09/10/24 History syringe (Copaxone) losartan 25 mg tablet 50 mg PO BID 01/11/15 09/10/24 History pregabalin 300 mg capsule (Lyrica) 300 mg PO BID seizure/pain 01/11/15 09/10/24 History pozdybgiih-madszzkdjibls-fagrkcee 1 ea PO TID PRN Headache 01/06/17 09/10/24 History 50 mg-325 mg-40 mg tablet metoprolol tartrate 50 mg tablet See Rx Instructions PO .COMPLEX 01/06/17 09/10/24 History furosemide 40 mg tablet 40 mg PO ONCE edema management 08/23/24 09/10/24 History insulin NPH isoph U-100 human 100 37 unit subcut BID 08/23/24 09/10/24 History unit/mL (3 mL) subcutaneous pen (Humulin N NPH U-100 Insulin KwikPen) potassium chloride 8 mEq 8 meq PO ONCE 08/23/24 09/10/24 History tablet,extended release [facility] Statement: As the person ultimately responsible for medication therapy, providers are able to order a medication from an existing home medication list in [facility] via the "Reconcile Routine" prior to Confirmation of that medication by supportability engineer. Such practice is discouraged except when the physician, in their clinical judg ment, deems that a medical need exists for a medication without regard to previous use.
--- NOTE | 2024-09-10 15:48 | PHARMACY PROGRESS NOTE ---
Best Possible Medication History Admit Date and Time: 09/10/24 0951 Home Medications Medication Instructions Recorded Confirmed Type glatiramer 20 mg/mL subcutaneous 20 mg INJ DAILY 01/11/15 09/10/24 History syringe (Copaxone) losartan 25 mg tablet 50 mg PO BID 01/11/15 09/10/24 History pregabalin 300 mg capsule (Lyrica) 300 mg PO BID seizure/pain 01/11/15 09/10/24 History eyrwmjvjal-fgcqqtydmpvim-eqgflyen 1 ea PO TID PRN Headache 01/06/17 09/10/24 History 50 mg-325 mg-40 mg tablet metoprolol tartrate 50 mg tablet See Rx Instructions PO .COMPLEX 01/06/17 09/10/24 History furosemide 40 mg tablet 40 mg PO ONCE edema management 08/23/24 09/10/24 History insulin NPH isoph U-100 human 100 37 unit subcut BID 08/23/24 09/10/24 History unit/mL (3 mL) subcutaneous pen (Humulin N NPH U-100 Insulin KwikPen) potassium chloride 8 mEq 8 meq PO ONCE 08/23/24 09/10/24 History tablet,extended release Processed by: Pharmacy Medications reviewed in ED?: No Medication History completed: Yes Patient Interview: Completed Secondary Source(s): Pharmacy records and Insurance records [place] Statement: As the person ultimately responsible for medication therapy, providers are able to order a medication from an existing home medication list in [facility] via the "Reconcile Routine" prior to Confirmation of that medication by academic support director. Such practice is discouraged except when the physician, in their clinical judgment, deems that a medical need exists for a medication without regard to previous use.
[2024-09-10] MEDS: ACETAMINOPHEN 325 MG TABLET PO PRN (16:10)
[2024-09-10] MEDS ORDERED: SODIUM CHLORIDE FLUSH 0.9% 10 ML SYRINGE IVP SCH (17:00)
[2024-09-10] MEDS: INSULIN GLARGINE-YFGN 300 UNIT/3 ML PEN SUBQ SCH (20:38)
[2024-09-10] MEDS: SODIUM CHLORIDE FLUSH 0.9% 10 ML SYRINGE IVP PRN (20:39)
[2024-09-10 20:46] LABS: HCT - HEMATOCRIT 43.4 % (37.0-47.0); HGB - HEMOGLOBIN 13.8 g/dL (12.0-16.0); MEAN CORPUSCULAR HEMOGLOBIN 29.2 pg (27.0-31.0); MEAN CORPUSCULAR HGB CONC 31.8 g/dL (32.0-36.0); MEAN CORPUSCULAR VOLUME 91.9 fL (81.0-99.0); MEAN PLATELET VOLUME 13.3 fL (7.9-10.8); RED BLOOD COUNT 4.72 10^6/uL (4.20-5.40); RED CELL DISTRIBUTION WIDTH 13.1 % (12.0-15.0); WHITE BLOOD COUNT 13.1 x10^3/uL (4.8-10.8)
[2024-09-10] MEDS: FUROSEMIDE 40 MG/4 ML VIAL IVP ONE (21:06)
--- NOTE | 2024-09-10 21:08 | PROVIDER PROGRESS NOTE ---
Progress Note Progress Note Progress Note: Patient with what appears to be atrial fibrillation on the monitor this evening. She does not have any chest pain but has become a little bit agitated and disoriented. I requested EKG which remains pending I also requested troponin. Troponin was reported to me as 2797.9. I do not have any values to compare this to. Given his elevation in troponin I started the patient immediately on heparin drip. I am awaiting EKG. And will trend troponin. I have also ordered echocardiogram for the morning. Patient admitted for CHF exacerbation. She got 60 mg of Lasix at 6:00 this morning. I we will give her an additional 40 mg this afternoon. Her renal fxn was WNL at admit. I will repeat BN P in the AM.
[2024-09-10] MEDS: HEPARIN/0.45% NACL 25,000 UNIT/500 ML BAG IV SCH (21:24)
[2024-09-11 03:37] LABS: BASOPHILS # (AUTO) 0.1 10^3/uL (0.0-0.1); BASOPHILS % (AUTO) 0.5 %; EOSINOPHILS # (AUTO) 0.1 10^3/uL (0.0-0.7); EOSINOPHILS % (AUTO) 0.3 %; HGB - HEMOGLOBIN 12.8 g/dL (12.0-16.0); LYMPHOCYTES # (AUTO) 1.9 10^3/uL (1.5-3.5); LYMPHOCYTES % (AUTO) 12.7 %; MEAN CORPUSCULAR HEMOGLOBIN 29.8 pg (27.0-31.0); MEAN CORPUSCULAR HGB CONC 32.8 g/dL (32.0-36.0); MEAN CORPUSCULAR VOLUME 90.9 fL (81.0-99.0); MEAN PLATELET VOLUME 13.5 fL (7.9-10.8); MONOCYTES # (AUTO) 1.5 10^3/uL (0.0-1.0); MONOCYTES % (AUTO) 10.1 %; NEUTROPHILS # (AUTO) 11.3 10^3/uL (1.5-6.6); PLT - PLATELET COUNT 151 10^3/uL (130-450); RED BLOOD COUNT 4.29 10^6/uL (4.20-5.40); RED CELL DISTRIBUTION WIDTH 13.2 % (12.0-15.0); WHITE BLOOD COUNT 14.9 x10^3/uL (4.8-10.8)
[2024-09-11 03:45] LABS: CALCIUM, IONIZED 1.12 mmol/L (1.09-1.30)
[2024-09-11 03:50] LABS: CALCIUM 8.7 mg/dL (8.5-10.3); CREATININE 0.8 mg/dL (0.6-1.3); PHOSPHORUS 4.1 mg/dL (2.5-5.0); POTASSIUM 3.6 mmol/L (3.5-4.5)
[2024-09-11] MEDS: POTASSIUM CHLOR 10 MEQ/100 ML 10 MEQ/100 ML BAG IV SCH (06:05)
[2024-09-11 09:10] LABS: HGB - HEMOGLOBIN 11.5 g/dL (12.0-16.0); MEAN CORPUSCULAR HEMOGLOBIN 29.3 pg (27.0-31.0); MEAN CORPUSCULAR HGB CONC 31.9 g/dL (32.0-36.0); MEAN CORPUSCULAR VOLUME 91.8 fL (81.0-99.0); MEAN PLATELET VOLUME 13.9 fL (7.9-10.8); RED BLOOD COUNT 3.92 10^6/uL (4.20-5.40); RED CELL DISTRIBUTION WIDTH 13.2 % (12.0-15.0)
[2024-09-11] MEDS: ENOXAPARIN 40 MG/0.4 ML SYRINGE SUBQ SCH (09:23)
[2024-09-11] MEDS: ASPIRIN EC 81 MG TABLET PO SCH (12:11)
--- NOTE | 2024-09-11 12:53 | Discharge Summary ---
"Discharge Summary Admit Date: 09/10/24 Discharge Date: 09/12/24 Discharging Provider: Dr. Justina Ross Code Status: Attempt Resuscitation Discharge Facility Name: Transfer to [facility] DIAGNOSES Admission Diagnoses: Acute hypoxic respiratory failure: Acute exacerbation of CHF (congestive heart failure) Venous insufficiency (chronic) (peripheral) Type 2 diabetes mellitus with foot ulcer Discharge Diagnoses with Status of Each Condition: NSTEMItroponin elevated to 2800s. Patient placed on heparin drip. No EKG changes, no chest pain, however does continue to have shortness of breath. Did speak with patient's cardiology group, they recommend transfer for possible catheterization. Echo was completed and it did show reduced systolic function with ejection fraction of 35 to 40%, akinesis of apex with hypokinesis of multiple avalos, as well as mild mitral regurgitation. Acute hypoxic respiratory failureresolving. Remains on 1 L. Did require some BiPAP overnight for work of breathing. Continue Lasix 40 mg twice daily. Continue Solu-Medrol. Acute exacerbation of CHFcontinue IV Lasix. Venous insufficiency has chronic ulcerations bilateral lower extremities. Continue wound care. Type 2 diabetes mellitus with foot ulcercontinue insulin sliding scale, hypoglycemic protocol. HPI History of Present Illness: Patient is a 74-year-old female with a history of diastolic heart failure who presents with worsening shortness of breath. Patient states that the shortness of breath started yesterday, and got progressively worse overnight. She has no history of lung disease including asthma or COPD, nor does she use any inhalers. She lives with her , who has not exhibited any symptoms at all. She has no recent travel as well. She also feels like she has a cough, with no sputum production. She denies any fevers or chills. In the emergency room, she was found to be hypoxic to 88%, requiring 2 L of oxygen. She was normotensive, with a respiratory rate of 16, pulse of 83, and was afebrile as well. Lab work showed a mild leukocytosis of 11.2. VBG shows pH of 7.446, and her BMP was largely unremarkable. Her BNP was elevated at 1890. Chest x-ray showed increased vascular surgery suggestive edema, as well as a possible superimposed interstitial pneumonia. When she arrived to the [facility] floor, she is very tachypneic, and breathing in the high 30s. She was transferred to the ICU. Lung exam showed decreased air entry bilaterally, mild bibasilar crackles, as well as some wheezing. She was started on Solu-Medrol, Rocephin and azithromycin for community-acquired pneumonia, as well as given a dose of IV Lasix. CONSULTS | PROCEDURES Consultations: Cardiology, respiratory therapy Procedures: Chest x-ray, echocardiogram HOSPITAL COURSE Hospital Course: Patient is a 74-year-old female with a history of grade 1 diastolic heart failure presented with increased worsening shortness of breath. She stated this started the evening before admission, and progressively got worse. Chest x-ray showed diffuse fluid overload. She was started on IV Lasix. She was also treated for possible concomitant bacterial pneumonia. Her troponin was found to be elevated in the 3000s. Her microsoft application developer was spoken with, and they recommend transfer for cardiac catheterization. Although her microsoft application developer is at [place], the hospital was full, so cardiology was spoken with at [place], and patient was transferred to [facility]. ALLERGIES Allergies Allergy/AdvReac Type Severity Reaction Status Date / Time hydromorphone HCl * (From AdvReac Emesis Verified 12/10/18 18:53 Dilaudid) MEDICATIONS Ambulatory Orders Medication Instructions Recorded Confirmed glatiramer 20 mg/mL subcutaneous 20 mg INJ DAILY 01/11/15 09/10/24 syringe (Copaxone) losartan 25 mg tablet 50 mg PO BID 01/11/15 09/10/24 pregabalin 300 mg capsule (Lyrica) 300 mg PO BID seizure/pain 01/11/15 09/10/24 nczmtsaxmy-obexitvvqtzdw-uhpllyjs 1 ea PO TID PRN Headache 01/06/17 09/10/24 50 mg-325 mg-40 mg tablet metoprolol tartrate 50 mg tablet See Rx Instructions PO .COMPLEX 01/06/17 09/10/24 furosemide 40 mg tablet 40 mg PO DAILY edema management 08/23/24 09/10/24 insulin NPH isoph U-100 human 100 37 unit subcut BID 08/23/24 09/10/24 unit/mL (3 mL) subcutaneous pen (Humulin N NPH U-100 Insulin KwikPen) potassium chloride 8 mEq 8 meq PO ONCE 08/23/24 09/10/24 tablet,extended release PHYSICAL EXAM AT DISCHARGE General Appearance: positive Alert and Mild distress; negative Anxious Eyes Bilateral: positive Normal inspection, PERRL and EOMI ENT: positive ENT inspection nml, Pharynx nml and No signs of dehydration Neck: positive Nml inspection, Thyroid nml and No JVD Respiratory: positive Chest non-tender, No respiratory distress, Wheezes and Rales Cardiovascular: positive Irregularly irregular and Tachycardia; negative Systolic murmur, Diastolic murmur, Friction rub or Decreased pulse(s) Peripheral Pulses: positive 2+ Abdomen: positive Non-tender; negative Tenderness, Guarding, Rebound, Hepatomegaly, Splenomegaly or Mass Back: positive Nml inspection; negative CVA tenderness (R) or CVA tenderness (L) Skin: positive Color nml, No rash, Warm and Dry Extremities: positive Non-tender, Full ROM, Nml appearance and Pedal edema (Bilateral legs wrapped in compression stockings) Neurologic/Psychiatric: positive Oriented x3 and Mood/affect nml LABS 09/12/24 04:50 09/12/24 04:50 DIAGNOSTIC IMAGING Diagnostic Imaging Results: Final report reviewed FOLLOW UP Follow Up: Follow up with PCP. Follow up with cardiology. Follow up with wound care doctor. TIME SPENT Time Spent in Discharge (Minutes): 35 Discharge Plan Discharge Patient Disposition: Transfer Acute Care Hosp Condition: Fair Prescriptions: New aspirin 81 mg Tablet,Delayed Release (Dr/Ec) 81 mg PO DAILY Qty: 30 0RF Continued losartan 25 MG tablet 50 mg PO BID pregabalin [Lyrica] 300 MG capsule 300 mg PO BID glatiramer [Copaxone] 20 MG/ML syringe 20 mg INJ DAILY uasebuopzs-edrmwlaynomkt-pptq 1 EACH tablet 1 ea PO TID PRN (Reason: Headache) metoprolol tartrate 50 MG tablet See Rx Instructions PO .COMPLEX Patient Comments: Pt states she takes 1 and 1/2 pill in the morning per her MD instructions and then one pill at night for a total of 125 mg. Rx Instructions: 75MG DAILY AND 50MG QPM furosemide 40 mg tablet 40 mg PO DAILY Patient Comments: TAKE 1 TABLET BY MOUTH ONCE DAILY Humulin N NPH Insulin KwikPen 100 unit/mL (3 mL) insulin pen 37 unit SUBCUT BID Patient Comments: INJECT 37 UNITS SUBCUTANEOUSLY TWICE DAILY Rx Instructions: 40 units BID subcutaneously; potassium chloride 8 mEq tablet extended release 8 meq PO ONCE Patient Comments: TAKE 1 TABLET BY MOUTH ONCE DAILY WITH LASIX Activity Restrictions: Activity as Tolerated Diet: Cardiac Print Language: Japanese Stand Alone Forms: PCP List"
[2024-09-11] MEDS: FUROSEMIDE 40 MG/4 ML VIAL IVP SCH (13:56)
[2024-09-11] MEDS: POTASSIUM CHLORIDE 20 MEQ TABLET PO ONE (15:30)
[2024-09-11] MEDS: ONDANSETRON ODT 4 MG TABLET TL PRN (15:30)
[2024-09-11] MEDS: traMADol 50 MG TABLET PO ONE (16:35)
[2024-09-11] MEDS: FAMOTIDINE 20 MG TABLET PO SCH (21:32)
[2024-09-11] MEDS: traMADol 50 MG TABLET PO PRN (21:33)
[2024-09-12 05:01] LABS: HCT - HEMATOCRIT 41.1 % (37.0-47.0); MEAN CORPUSCULAR HEMOGLOBIN 29.1 pg (27.0-31.0); MEAN CORPUSCULAR HGB CONC 31.6 g/dL (32.0-36.0); MEAN CORPUSCULAR VOLUME 92.2 fL (81.0-99.0); MEAN PLATELET VOLUME 13.5 fL (7.9-10.8); RED BLOOD COUNT 4.46 10^6/uL (4.20-5.40); RED CELL DISTRIBUTION WIDTH 13.5 % (12.0-15.0); WHITE BLOOD COUNT 10.4 x10^3/uL (4.8-10.8)
[2024-09-12 05:22] LABS: CALCIUM 8.5 mg/dL (8.5-10.3); CREATININE 0.9 mg/dL (0.6-1.3); POTASSIUM 4.4 mmol/L (3.5-4.5)
[2024-09-12 05:35] LABS: CALCIUM, IONIZED 1.11 mmol/L (1.09-1.30)
[2024-09-12] MEDS: PROCHLORPERAZINE 10 MG/2 ML VIAL IVP PRN (06:43)
[2024-09-12] MEDS: METOPROLOL TARTRATE 25 MG TABLET PO SCH (09:27)
[2024-09-12] MEDS: PREGABALIN 100 MG CAPSULE PO SCH (09:27)
[2024-09-12] MEDS: INSULIN GLARGINE-YFGN 300 UNIT/3 ML PEN SUBQ ONE (09:28)
[2024-09-12] MEDS: methylPREDNISolone SUCCINATE 40 MG/ML VIAL IVP SCH (09:28)
--- NOTE | 2024-09-12 09:49 | PROVIDER PROGRESS NOTE ---
Documented by User: Dev Sharp 09/12/24 09:49 Subjective Prog Note Date Prog Note Date: 09/11/24 Subjective Pt reports feeling: No change Subjective: Mrs. Dyer is a 74-year-old woman with a history of diastolic heart failure who presents with worsening shortness of breath. She has no history of lung disease, including asthma or COPD, nor does she use any inhalers. She has chronic diabetic bilateral lower leg ulcers that are cared for by outpatient wound care and continue to cause her pain and decreased mobility. Chest x-ray shows increased vascular edema c/f interstitial PNA. She continues to be on BiPAP overnight and PRN during the day. Her WBC is elevated to 14.9 this morning. She will continue the Abx course, Lasix, and solu-medrol. Her initial elevated BNP was 1890, and it is downtrending to 1773. Elevated troponin is also downtrending, peaking at 2810.7 to 2386.2 this morning. Continue heparin infusion; cardiology has been consulted, who recommends diagnostic cardiac angiography. The plan is to transfer her to [facility] for PCI. Current Medications Current Medications Current Medications: Current Medications Generic Name Dose Route Start Last Admin Trade Name Freq PRN Reason Stop Dose Admin Acetaminophen 650 mg 09/10/24 08:47 09/11/24 06:04 Acetaminophen 325 Mg Tablet PO 650 mg Q4HR PRN Administration Pain 1 to 4, or Fever Albuterol/Ipratropium 3 ml 09/10/24 09:37 Ipratropium/Albuterol 3 Ml Neb INH Q4HR PRN Wheezing Aspirin 81 mg 09/11/24 10:00 09/12/24 08:23 Aspirin Ec 81 Mg Tablet PO 81 mg DAILY HOLLY Administration Calcium Carbonate/Glycine 500 mg 09/10/24 11:30 09/10/24 14:13 Calcium Carbonate Chew 500 Mg Tablet PO 500 mg BID PRN Administration INDIGESTION Ceftriaxone Sodium 1 gm 09/10/24 14:15 09/12/24 08:23 Ceftriaxone 1 Gm Vial IVP 1 gm DAILY HOLLY Administration Famotidine 20 mg 09/11/24 21:00 09/12/24 08:23 Famotidine 20 Mg Tablet PO 20 mg BID HOLLY Administration Furosemide 40 mg 09/11/24 14:00 09/12/24 06:05 Furosemide 40 Mg/4 Ml Vial IVP 40 mg BIDDIURETIC HOLLY Administration Heparin Sodium (Porcine) 1,000 - 2,000 unit 09/10/24 20:26 09/11/24 19:04 Heparin 1,000 Unit/Ml Vial IVP 2,000 unit Q6H PRN Administration aPTT <50 Protocol Heparin Sodium/Sodium Chloride 25,000 unit in 500 mls @ 27.216 mls/hr 09/10/24 21:00 09/12/24 02:31 Heparin/0.45% Nacl IV 10 unit/kg/hr .[id number] HOLLY 22.68 mls/hr Titration Protocol 12 UNIT/KG/HR Insulin Glargine-yfgn 10 unit 09/10/24 21:00 09/11/24 21:46 Insulin Glargine-Yfgn 300 Unit/3 Ml Pen SUBQ 10 unit QPM HOLLY Administration Insulin Human Lispro 1 - 9 unit 09/10/24 12:00 09/12/24 11:50 Insulin Lispro 300 Unit/3 Ml Pen SUBQ 7 unit 0800,1200,1700,2100 HOLLY Administration Protocol Methylprednisolone 40 mg 09/12/24 09:00 09/12/24 09:28 Methylprednisolone Succinate 40 Mg/Ml Vial IVP 40 mg TID HOLLY Administration Metoprolol Tartrate 25 mg 09/12/24 09:00 09/12/24 09:27 Metoprolol Tartrate 25 Mg Tablet PO 25 mg BID HOLLY Administration Multi-Ingredient Ointment 1 applic 09/10/24 10:39 Zinc Oxide 20% Oint 30 Gm Tube TOP PRN PRN Skin Care Nystatin 1 applic 09/10/24 12:00 09/12/24 08:23 Nystatin Powder 15 Gm TOP 1 applic BID HOLLY Administration Ondansetron HCl 4 mg 09/10/24 08:47 09/12/24 04:23 Ondansetron Odt 4 Mg Tablet TL 4 mg Q6HR PRN Administration Nausea / Vomiting Pregabalin 300 mg 09/12/24 09:00 09/12/24 09:27 Pregabalin 100 Mg Capsule PO 300 mg BID HOLLY Administration Prochlorperazine Edisylate 10 mg 09/12/24 06:27 09/12/24 06:43 Prochlorperazine 10 Mg/2 Ml Vial IVP 10 mg Q6HR PRN Administration Nausea / Vomiting Sodium Chloride 10 ml 09/10/24 08:47 09/11/24 06:05 Sodium Chloride Flush 0.9% 10 Ml Syringe IVP 10 ml PRN PRN Administration NEEDED PER PROVIDER ORDERS Sodium Chloride 10 ml 09/10/24 09:00 09/12/24 08:23 Sodium Chloride Flush 0.9% 10 Ml Syringe IVP 10 ml 0100,0900,1700 HOLLY Administration Tramadol HCl 50 mg 09/11/24 21:06 09/12/24 00:41 Tramadol 50 Mg Tablet PO 50 mg Q4HR PRN Administration Moderate Pain (Level 4-6) Objective Vital Signs/Intake & Output Vital Signs: Vital Signs Temp Pulse Pulse Resp BP BP Pulse Ox 09/12/24 12:00 98.1 F 93 28 H 105/85 93 09/12/24 11:00 91 21 122/83 93 09/12/24 10:00 106 H 15 115/79 94 09/12/24 09:27 115 H 117/81 09/12/24 09:00 110 H 24 118/89 95 O2 Flow Rate 09/12/24 12:00 1 09/12/24 11:00 1 09/12/24 10:00 1 09/12/24 09:27 09/12/24 09:00 1 Intake & Output: Intake & Output 09/09/24 09/10/24 09/11/24 09/12/24 23:59 23:59 23:59 23:59 Intake Total 270 / 270 1190 / 1190 187 / 187 Output Total 850 / 850 1200 / 1200 100 / 100 Balance -580 / -580 -10 / -10 87 / 87 Weight (kg) 113.398 kg 115.5 kg 115.5 kg Lab Results 09/12/24 04:50 09/12/24 04:50 Other Labs: Lab Results x24hrs 09/12/24 09/12/24 09/12/24 Range/Units 11:50 07:56 07:50 WBC (4.8-10.8) x10^3/uL RBC (4.20-5.40) 10^6/uL Hgb (12.0-16.0) g/dL Hct (37.0-47.0) % MCV (81.0-99.0) fL MCH (27.0-31.0) pg MCHC (32.0-36.0) g/dL RDW (12.0-15.0) % Plt Count (130-450) 10^3/uL MPV (7.9-10.8) fL APTT 76.4 H (24.9-33.3) secs VBG pH (7.31-7.41) Ionized Calcium (1.09-1.30) mmol/L Sodium (135-145) mmol/L Potassium (3.5-4.5) mmol/L Chloride (101-111) mmol/L Carbon Dioxide (21-32) mmol/L Anion Gap (6-13) BUN (6-20) mg/dL Creatinine (0.6-1.3) mg/dL Estimated GFR (MDRD) (>89) Glucose (74-104) mg/dL POC Whole Bld Glucose 315 301 (70-100) mg/dL Calcium (8.5-10.3) mg/dL Phosphorus (2.5-5.0) mg/dL Magnesium (1.7-2.3) mg/dL 09/12/24 09/12/24 09/11/24 Range/Units 04:50 01:18 21:04 WBC 10.4 (4.8-10.8) x10^3/uL RBC 4.46 (4.20-5.40) 10^6/uL Hgb 13.0 (12.0-16.0) g/dL Hct 41.1 (37.0-47.0) % MCV 92.2 (81.0-99.0) fL MCH 29.1 (27.0-31.0) pg MCHC 31.6 L (32.0-36.0) g/dL RDW 13.5 (12.0-15.0) % Plt Count 158 (130-450) 10^3/uL MPV 13.5 H (7.9-10.8) fL APTT 105.0 H* (24.9-33.3) secs VBG pH 7.451 H (7.31-7.41) Ionized Calcium 1.11 (1.09-1.30) mmol/L Sodium 142 (135-145) mmol/L Potassium 4.4 (3.5-4.5) mmol/L Chloride 102 (101-111) mmol/L Carbon Dioxide 23 (21-32) mmol/L Anion Gap 17.0 H (6-13) BUN 31 H (6-20) mg/dL Creatinine 0.9 (0.6-1.3) mg/dL Estimated GFR (MDRD) 61 L (>89) Glucose 256 H (74-104) mg/dL POC Whole Bld Glucose 175 (70-100) mg/dL Calcium 8.5 (8.5-10.3) mg/dL Phosphorus 3.6 (2.5-5.0) mg/dL Magnesium 2.0 (1.7-2.3) mg/dL 09/11/24 09/11/24 09/11/24 Range/Units 18:37 16:40 15:26 WBC (4.8-10.8) x10^3/uL RBC (4.20-5.40) 10^6/uL Hgb (12.0-16.0) g/dL Hct (37.0-47.0) % MCV (81.0-99.0) fL MCH (27.0-31.0) pg MCHC (32.0-36.0) g/dL RDW (12.0-15.0) % Plt Count (130-450) 10^3/uL MPV (7.9-10.8) fL APTT 39.5 H (24.9-33.3) secs VBG pH (7.31-7.41) Ionized Calcium (1.09-1.30) mmol/L Sodium (135-145) mmol/L Potassium 4.2 (3.5-4.5) mmol/L Chloride (101-111) mmol/L Carbon Dioxide (21-32) mmol/L Anion Gap (6-13) BUN (6-20) mg/dL Creatinine (0.6-1.3) mg/dL Estimated GFR (MDRD) (>89) Glucose (74-104) mg/dL POC Whole Bld Glucose 151 156 (70-100) mg/dL Calcium (8.5-10.3) mg/dL Phosphorus (2.5-5.0) mg/dL Magnesium (1.7-2.3) mg/dL 09/11/24 Range/Units 14:03 WBC (4.8-10.8) x10^3/uL RBC (4.20-5.40) 10^6/uL Hgb (12.0-16.0) g/dL Hct (37.0-47.0) % MCV (81.0-99.0) fL MCH (27.0-31.0) pg MCHC (32.0-36.0) g/dL RDW (12.0-15.0) % Plt Count (130-450) 10^3/uL MPV (7.9-10.8) fL APTT (24.9-33.3) secs VBG pH (7.31-7.41) Ionized Calcium (1.09-1.30) mmol/L Sodium (135-145) mmol/L Potassium 3.9 (3.5-4.5) mmol/L Chloride (101-111) mmol/L Carbon Dioxide (21-32) mmol/L Anion Gap (6-13) BUN (6-20) mg/dL Creatinine (0.6-1.3) mg/dL Estimated GFR (MDRD) (>89) Glucose (74-104) mg/dL POC Whole Bld Glucose (70-100) mg/dL Calcium (8.5-10.3) mg/dL Phosphorus (2.5-5.0) mg/dL Magnesium (1.7-2.3) mg/dL Assessment/Plan Problem List (1) NSTEMI (non-ST elevated myocardial infarction): (2) Acute hypoxic respiratory failure: Impression: On BiPAP overnight and as needed. LS decreased rales/crackles, still continues to have tight wheezing/decreased. Hx of Keren G1 HF Cont Ceftriaxone and Azithromycin for c/f pulmonary infection Cont. Lasix 40mg BID. Good UO overnight. Cont. Solu Medrol 40mg TID. Repeat CXR prior to transfer. DuoNebs PRN (3) Acute exacerbation of CHF (congestive heart failure): Impression: Hx of Keren G1 HF Troponin downtrending (09/10: 2810.7) 09/11: 2386.2 BNP downtreding (09/10: 1890) 09/11: 1773 Cardiology consulted and suggest cardiac PCI. Continue Heparin infusion 12u/kg/hr IV. Mgmt as above. Qualifiers: Heart failure type: diastolic Qualified Code(s): I50.33 - Acute on chronic diastolic (congestive) heart failure (4) Venous insufficiency (chronic) (peripheral): Impression: Chronic ulcerations of bilateral lower extremities. Unwrapped and assessed yesterday, good healing process and decreased edema/swelling noted. Continue management in outpatient setting, wound care. (5) Type 2 diabetes mellitus with foot ulcer: Impression: Insulin sliding scale dosing. 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 Qualified Code(s): E11.621 - Type 2 diabetes mellitus with foot ulcer; L97.509 - Non- pressure chronic ulcer of other part of unspecified foot with unspecified severity; Z79.4 - half-way (current) use of insulin Documented by User: Justina Ross MD 09/12/24 12:56 Current Medications Current Medications Current Medications: Current Medications Generic Name Dose Route Start Last Admin Trade Name Freq PRN Reason Stop Dose Admin Acetaminophen 650 mg 09/10/24 08:47 09/11/24 06:04 Acetaminophen 325 Mg Tablet PO 650 mg Q4HR PRN Administration Pain 1 to 4, or Fever Albuterol/Ipratropium 3 ml 09/10/24 09:37 Ipratropium/Albuterol 3 Ml Neb INH Q4HR PRN Wheezing Aspirin 81 mg 09/11/24 10:00 09/12/24 08:23 Aspirin Ec 81 Mg Tablet PO 81 mg DAILY HOLLY Administration Calcium Carbonate/Glycine 500 mg 09/10/24 11:30 09/10/24 14:13 Calcium Carbonate Chew 500 Mg Tablet PO 500 mg BID PRN Administration INDIGESTION Ceftriaxone Sodium 1 gm 09/10/24 14:15 09/12/24 08:23 Ceftriaxone 1 Gm Vial IVP 1 gm DAILY HOLLY Administration Famotidine 20 mg 09/11/24 21:00 09/12/24 08:23 Famotidine 20 Mg Tablet PO 20 mg BID HOLLY Administration Furosemide 40 mg 09/11/24 14:00 09/12/24 06:05 Furosemide 40 Mg/4 Ml Vial IVP 40 mg BIDDIURETIC HOLLY Administration Heparin Sodium (Porcine) 1,000 - 2,000 unit 09/10/24 20:26 09/11/24 19:04 Heparin 1,000 Unit/Ml Vial IVP 2,000 unit Q6H PRN Administration aPTT <50 Protocol Heparin Sodium/Sodium Chloride 25,000 unit in 500 mls @ 27.216 mls/hr 09/10/24 21:00 09/12/24 02:31 Heparin/0.45% Nacl IV 10 unit/kg/hr .[id number] HOLLY 22.68 mls/hr Titration Protocol 12 UNIT/KG/HR Insulin Glargine-yfgn 10 unit 09/10/24 21:00 09/11/24 21:46 Insulin Glargine-Yfgn 300 Unit/3 Ml Pen SUBQ 10 unit QPM HOLLY Administration Insulin Human Lispro 1 - 9 unit 09/10/24 12:00 09/12/24 11:50 Insulin Lispro 300 Unit/3 Ml Pen SUBQ 7 unit 0800,1200,1700,2100 HOLLY Administration Protocol Methylprednisolone 40 mg 09/12/24 09:00 09/12/24 09:28 Methylprednisolone Succinate 40 Mg/Ml Vial IVP 40 mg TID HOLLY Administration Metoprolol Tartrate 25 mg 09/12/24 09:00 09/12/24 09:27 Metoprolol Tartrate 25 Mg Tablet PO 25 mg BID HOLLY Administration Multi-Ingredient Ointment 1 applic 09/10/24 10:39 Zinc Oxide 20% Oint 30 Gm Tube TOP PRN PRN Skin Care Nystatin 1 applic 09/10/24 12:00 09/12/24 08:23 Nystatin Powder 15 Gm TOP 1 applic BID HOLLY Administration Ondansetron HCl 4 mg 09/10/24 08:47 09/12/24 04:23 Ondansetron Odt 4 Mg Tablet TL 4 mg Q6HR PRN Administration Nausea / Vomiting Pregabalin 300 mg 09/12/24 09:00 09/12/24 09:27 Pregabalin 100 Mg Capsule PO 300 mg BID HOLLY Administration Prochlorperazine Edisylate 10 mg 09/12/24 06:27 09/12/24 06:43 Prochlorperazine 10 Mg/2 Ml Vial IVP 10 mg Q6HR PRN Administration Nausea / Vomiting Sodium Chloride 10 ml 09/10/24 08:47 09/11/24 06:05 Sodium Chloride Flush 0.9% 10 Ml Syringe IVP 10 ml PRN PRN Administration NEEDED PER PROVIDER ORDERS Sodium Chloride 10 ml 09/10/24 09:00 09/12/24 08:23 Sodium Chloride Flush 0.9% 10 Ml Syringe IVP 10 ml 0100,0900,1700 HOLLY Administration Tramadol HCl 50 mg 09/11/24 21:06 09/12/24 00:41 Tramadol 50 Mg Tablet PO 50 mg Q4HR PRN Administration Moderate Pain (Level 4-6) Objective Vital Signs/Intake & Output Vital Signs: Vital Signs Temp Pulse Pulse Resp BP BP Pulse Ox 09/12/24 12:00 98.1 F 93 28 H 105/85 93 09/12/24 11:00 91 21 122/83 93 09/12/24 10:00 106 H 15 115/79 94 09/12/24 09:27 115 H 117/81 09/12/24 09:00 110 H 24 118/89 95 O2 Flow Rate 09/12/24 12:00 1 09/12/24 11:00 1 09/12/24 10:00 1 09/12/24 09:27 09/12/24 09:00 1 Intake & Output: Intake & Output 09/09/24 09/10/24 09/11/24 09/12/24 23:59 23:59 23:59 23:59 Intake Total 270 / 270 1190 / 1190 187 / 187 Output Total 850 / 850 1200 / 1200 100 / 100 Balance -580 / -580 -10 / -10 87 / 87 Weight (kg) 113.398 kg 115.5 kg 115.5 kg Lab Results 09/12/24 04:50 09/12/24 04:50 Other Labs: Lab Results x24hrs 09/12/24 09/12/24 09/12/24 Range/Units 11:50 07:56 07:50 WBC (4.8-10.8) x10^3/uL RBC (4.20-5.40) 10^6/uL Hgb (12.0-16.0) g/dL Hct (37.0-47.0) % MCV (81.0-99.0) fL MCH (27.0-31.0) pg MCHC (32.0-36.0) g/dL RDW (12.0-15.0) % Plt Count (130-450) 10^3/uL MPV (7.9-10.8) fL APTT 76.4 H (24.9-33.3) secs VBG pH (7.31-7.41) Ionized Calcium (1.09-1.30) mmol/L Sodium (135-145) mmol/L Potassium (3.5-4.5) mmol/L Chloride (101-111) mmol/L Carbon Dioxide (21-32) mmol/L Anion Gap (6-13) BUN (6-20) mg/dL Creatinine (0.6-1.3) mg/dL Estimated GFR (MDRD) (>89) Glucose (74-104) mg/dL POC Whole Bld Glucose 315 301 (70-100) mg/dL Calcium (8.5-10.3) mg/dL Phosphorus (2.5-5.0) mg/dL Magnesium (1.7-2.3) mg/dL 09/12/24 09/12/24 09/11/24 Range/Units 04:50 01:18 21:04 WBC 10.4 (4.8-10.8) x10^3/uL RBC 4.46 (4.20-5.40) 10^6/uL Hgb 13.0 (12.0-16.0) g/dL Hct 41.1 (37.0-47.0) % MCV 92.2 (81.0-99.0) fL MCH 29.1 (27.0-31.0) pg MCHC 31.6 L (32.0-36.0) g/dL RDW 13.5 (12.0-15.0) % Plt Count 158 (130-450) 10^3/uL MPV 13.5 H (7.9-10.8) fL APTT 105.0 H* (24.9-33.3) secs VBG pH 7.451 H (7.31-7.41) Ionized Calcium 1.11 (1.09-1.30) mmol/L Sodium 142 (135-145) mmol/L Potassium 4.4 (3.5-4.5) mmol/L Chloride 102 (101-111) mmol/L Carbon Dioxide 23 (21-32) mmol/L Anion Gap 17.0 H (6-13) BUN 31 H (6-20) mg/dL Creatinine 0.9 (0.6-1.3) mg/dL Estimated GFR (MDRD) 61 L (>89) Glucose 256 H (74-104) mg/dL POC Whole Bld Glucose 175 (70-100) mg/dL Calcium 8.5 (8.5-10.3) mg/dL Phosphorus 3.6 (2.5-5.0) mg/dL Magnesium 2.0 (1.7-2.3) mg/dL 09/11/24 09/11/24 09/11/24 Range/Units 18:37 16:40 15:26 WBC (4.8-10.8) x10^3/uL RBC (4.20-5.40) 10^6/uL Hgb (12.0-16.0) g/dL Hct (37.0-47.0) % MCV (81.0-99.0) fL MCH (27.0-31.0) pg MCHC (32.0-36.0) g/dL RDW (12.0-15.0) % Plt Count (130-450) 10^3/uL MPV (7.9-10.8) fL APTT 39.5 H (24.9-33.3) secs VBG pH (7.31-7.41) Ionized Calcium (1.09-1.30) mmol/L Sodium (135-145) mmol/L Potassium 4.2 (3.5-4.5) mmol/L Chloride (101-111) mmol/L Carbon Dioxide (21-32) mmol/L Anion Gap (6-13) BUN (6-20) mg/dL Creatinine (0.6-1.3) mg/dL Estimated GFR (MDRD) (>89) Glucose (74-104) mg/dL POC Whole Bld Glucose 151 156 (70-100) mg/dL Calcium (8.5-10.3) mg/dL Phosphorus (2.5-5.0) mg/dL Magnesium (1.7-2.3) mg/dL 09/11/24 Range/Units 14:03 WBC (4.8-10.8) x10^3/uL RBC (4.20-5.40) 10^6/uL Hgb (12.0-16.0) g/dL Hct (37.0-47.0) % MCV (81.0-99.0) fL MCH (27.0-31.0) pg MCHC (32.0-36.0) g/dL RDW (12.0-15.0) % Plt Count (130-450) 10^3/uL MPV (7.9-10.8) fL APTT (24.9-33.3) secs VBG pH (7.31-7.41) Ionized Calcium (1.09-1.30) mmol/L Sodium (135-145) mmol/L Potassium 3.9 (3.5-4.5) mmol/L Chloride (101-111) mmol/L Carbon Dioxide (21-32) mmol/L Anion Gap (6-13) BUN (6-20) mg/dL Creatinine (0.6-1.3) mg/dL Estimated GFR (MDRD) (>89) Glucose (74-104) mg/dL POC Whole Bld Glucose (70-100) mg/dL Calcium (8.5-10.3) mg/dL Phosphorus (2.5-5.0) mg/dL Magnesium (1.7-2.3) mg/dL Assessment/Plan Problem List (1) NSTEMI (non-ST elevated myocardial infarction): Impression: Hx of Keren G1 HF. Troponin 2810.7 (09/10) -> downtrending 2386.2 (09/11) BNP downtreding (09/10: 1890) 09/11: 1773 Cont. Heparin gtts. ECHO (09/11)shows moderatly reduced systolic function LVEF 35-40%. Multiple WMA w/ akinesis of apex w/ hypokinesis of antieror, anterolateral, and inferolateral avalos. Mild mitral regurg. Cardiology consulted and plan to transfer to [facility] for PCI. 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
--- NOTE | 2024-09-12 10:18 | PROVIDER PROGRESS NOTE ---
Subjective Prog Note Date Prog Note Date: 09/12/24 Subjective Pt reports feeling: No change Subjective: Mrs. Dyer being actively treated as an NSTEMI on heparin gtts at therapeutic aPTT levels. Continues to use BiPAP overnight and as needed. She denies chest pain currently. This morning, her lungs had decreased crackles and rales but still had decreased tightness with some expiratory wheezing. She is not complaining of shortness of breath at rest but still has exertional dyspnea. Her leg ulcerations are well cared for by wound care, but she still has pain associated with them. BNP downtrending to 1773 and Troponin downtrending 2386.2 09/11. Heparin infusion at therapeutic range with an aPTT 76.4 this AM Cardiology has been consulted, who recommends diagnostic cardiac angiography. The plan is to transfer her to [facility] for PCI. Current Medications Current Medications Current Medications: Current Medications Generic Name Dose Route Start Last Admin Trade Name Freq PRN Reason Stop Dose Admin Acetaminophen 650 mg 09/10/24 08:47 09/11/24 06:04 Acetaminophen 325 Mg Tablet PO 650 mg Q4HR PRN Administration Pain 1 to 4, or Fever Albuterol/Ipratropium 3 ml 09/10/24 09:37 Ipratropium/Albuterol 3 Ml Neb INH Q4HR PRN Wheezing Aspirin 81 mg 09/11/24 10:00 09/12/24 08:23 Aspirin Ec 81 Mg Tablet PO 81 mg DAILY HOLLY Administration Calcium Carbonate/Glycine 500 mg 09/10/24 11:30 09/10/24 14:13 Calcium Carbonate Chew 500 Mg Tablet PO 500 mg BID PRN Administration INDIGESTION Ceftriaxone Sodium 1 gm 09/10/24 14:15 09/12/24 08:23 Ceftriaxone 1 Gm Vial IVP 1 gm DAILY HOLLY Administration Famotidine 20 mg 09/11/24 21:00 09/12/24 08:23 Famotidine 20 Mg Tablet PO 20 mg BID HOLLY Administration Furosemide 40 mg 09/11/24 14:00 09/12/24 06:05 Furosemide 40 Mg/4 Ml Vial IVP 40 mg BIDDIURETIC HOLLY Administration Heparin Sodium (Porcine) 1,000 - 2,000 unit 09/10/24 20:26 09/11/24 19:04 Heparin 1,000 Unit/Ml Vial IVP 2,000 unit Q6H PRN Administration aPTT <50 Protocol Heparin Sodium/Sodium Chloride 25,000 unit in 500 mls @ 27.216 mls/hr 09/10/24 21:00 09/12/24 02:31 Heparin/0.45% Nacl IV 10 unit/kg/hr .[id number] HOLLY 22.68 mls/hr Titration Protocol 12 UNIT/KG/HR Insulin Glargine-yfgn 10 unit 09/10/24 21:00 09/11/24 21:46 Insulin Glargine-Yfgn 300 Unit/3 Ml Pen SUBQ 10 unit QPM HOLLY Administration Insulin Human Lispro 1 - 9 unit 09/10/24 12:00 09/12/24 11:50 Insulin Lispro 300 Unit/3 Ml Pen SUBQ 7 unit 0800,1200,1700,2100 HOLLY Administration Protocol Methylprednisolone 40 mg 09/12/24 09:00 09/12/24 09:28 Methylprednisolone Succinate 40 Mg/Ml Vial IVP 40 mg TID HOLLY Administration Metoprolol Tartrate 25 mg 09/12/24 09:00 09/12/24 09:27 Metoprolol Tartrate 25 Mg Tablet PO 25 mg BID HOLLY Administration Multi-Ingredient Ointment 1 applic 09/10/24 10:39 Zinc Oxide 20% Oint 30 Gm Tube TOP PRN PRN Skin Care Nystatin 1 applic 09/10/24 12:00 09/12/24 08:23 Nystatin Powder 15 Gm TOP 1 applic BID HOLLY Administration Ondansetron HCl 4 mg 09/10/24 08:47 09/12/24 04:23 Ondansetron Odt 4 Mg Tablet TL 4 mg Q6HR PRN Administration Nausea / Vomiting Pregabalin 300 mg 09/12/24 09:00 09/12/24 09:27 Pregabalin 100 Mg Capsule PO 300 mg BID HOLLY Administration Prochlorperazine Edisylate 10 mg 09/12/24 06:27 09/12/24 06:43 Prochlorperazine 10 Mg/2 Ml Vial IVP 10 mg Q6HR PRN Administration Nausea / Vomiting Sodium Chloride 10 ml 09/10/24 08:47 09/11/24 06:05 Sodium Chloride Flush 0.9% 10 Ml Syringe IVP 10 ml PRN PRN Administration NEEDED PER PROVIDER ORDERS Sodium Chloride 10 ml 09/10/24 09:00 09/12/24 08:23 Sodium Chloride Flush 0.9% 10 Ml Syringe IVP 10 ml 0100,0900,1700 HOLLY Administration Tramadol HCl 50 mg 09/11/24 21:06 09/12/24 00:41 Tramadol 50 Mg Tablet PO 50 mg Q4HR PRN Administration Moderate Pain (Level 4-6) Objective Vital Signs/Intake & Output Vital Signs: Vital Signs Temp Pulse Pulse Resp BP BP Pulse Ox 09/12/24 12:00 98.1 F 93 28 H 105/85 93 09/12/24 11:00 91 21 122/83 93 09/12/24 10:00 106 H 15 115/79 94 09/12/24 09:27 115 H 117/81 09/12/24 09:00 110 H 24 118/89 95 O2 Flow Rate 09/12/24 12:00 1 09/12/24 11:00 1 09/12/24 10:00 1 09/12/24 09:27 09/12/24 09:00 1 Intake & Output: Intake & Output 09/09/24 09/10/24 09/11/24 09/12/24 23:59 23:59 23:59 23:59 Intake Total 270 / 270 1190 / 1190 187 / 187 Output Total 850 / 850 1200 / 1200 100 / 100 Balance -580 / -580 -10 / -10 87 / 87 Weight (kg) 113.398 kg 115.5 kg 115.5 kg Lab Results 09/12/24 04:50 09/12/24 04:50 Other Labs: Lab Results x24hrs 09/12/24 09/12/24 09/12/24 Range/Units 11:50 07:56 07:50 WBC (4.8-10.8) x10^3/uL RBC (4.20-5.40) 10^6/uL Hgb (12.0-16.0) g/dL Hct (37.0-47.0) % MCV (81.0-99.0) fL MCH (27.0-31.0) pg MCHC (32.0-36.0) g/dL RDW (12.0-15.0) % Plt Count (130-450) 10^3/uL MPV (7.9-10.8) fL APTT 76.4 H (24.9-33.3) secs VBG pH (7.31-7.41) Ionized Calcium (1.09-1.30) mmol/L Sodium (135-145) mmol/L Potassium (3.5-4.5) mmol/L Chloride (101-111) mmol/L Carbon Dioxide (21-32) mmol/L Anion Gap (6-13) BUN (6-20) mg/dL Creatinine (0.6-1.3) mg/dL Estimated GFR (MDRD) (>89) Glucose (74-104) mg/dL POC Whole Bld Glucose 315 301 (70-100) mg/dL Calcium (8.5-10.3) mg/dL Phosphorus (2.5-5.0) mg/dL Magnesium (1.7-2.3) mg/dL 09/12/24 09/12/24 09/11/24 Range/Units 04:50 01:18 21:04 WBC 10.4 (4.8-10.8) x10^3/uL RBC 4.46 (4.20-5.40) 10^6/uL Hgb 13.0 (12.0-16.0) g/dL Hct 41.1 (37.0-47.0) % MCV 92.2 (81.0-99.0) fL MCH 29.1 (27.0-31.0) pg MCHC 31.6 L (32.0-36.0) g/dL RDW 13.5 (12.0-15.0) % Plt Count 158 (130-450) 10^3/uL MPV 13.5 H (7.9-10.8) fL APTT 105.0 H* (24.9-33.3) secs VBG pH 7.451 H (7.31-7.41) Ionized Calcium 1.11 (1.09-1.30) mmol/L Sodium 142 (135-145) mmol/L Potassium 4.4 (3.5-4.5) mmol/L Chloride 102 (101-111) mmol/L Carbon Dioxide 23 (21-32) mmol/L Anion Gap 17.0 H (6-13) BUN 31 H (6-20) mg/dL Creatinine 0.9 (0.6-1.3) mg/dL Estimated GFR (MDRD) 61 L (>89) Glucose 256 H (74-104) mg/dL POC Whole Bld Glucose 175 (70-100) mg/dL Calcium 8.5 (8.5-10.3) mg/dL Phosphorus 3.6 (2.5-5.0) mg/dL Magnesium 2.0 (1.7-2.3) mg/dL 09/11/24 09/11/24 09/11/24 Range/Units 18:37 16:40 15:26 WBC (4.8-10.8) x10^3/uL RBC (4.20-5.40) 10^6/uL Hgb (12.0-16.0) g/dL Hct (37.0-47.0) % MCV (81.0-99.0) fL MCH (27.0-31.0) pg MCHC (32.0-36.0) g/dL RDW (12.0-15.0) % Plt Count (130-450) 10^3/uL MPV (7.9-10.8) fL APTT 39.5 H (24.9-33.3) secs VBG pH (7.31-7.41) Ionized Calcium (1.09-1.30) mmol/L Sodium (135-145) mmol/L Potassium 4.2 (3.5-4.5) mmol/L Chloride (101-111) mmol/L Carbon Dioxide (21-32) mmol/L Anion Gap (6-13) BUN (6-20) mg/dL Creatinine (0.6-1.3) mg/dL Estimated GFR (MDRD) (>89) Glucose (74-104) mg/dL POC Whole Bld Glucose 151 156 (70-100) mg/dL Calcium (8.5-10.3) mg/dL Phosphorus (2.5-5.0) mg/dL Magnesium (1.7-2.3) mg/dL 09/11/24 Range/Units 14:03 WBC (4.8-10.8) x10^3/uL RBC (4.20-5.40) 10^6/uL Hgb (12.0-16.0) g/dL Hct (37.0-47.0) % MCV (81.0-99.0) fL MCH (27.0-31.0) pg MCHC (32.0-36.0) g/dL RDW (12.0-15.0) % Plt Count (130-450) 10^3/uL MPV (7.9-10.8) fL APTT (24.9-33.3) secs VBG pH (7.31-7.41) Ionized Calcium (1.09-1.30) mmol/L Sodium (135-145) mmol/L Potassium 3.9 (3.5-4.5) mmol/L Chloride (101-111) mmol/L Carbon Dioxide (21-32) mmol/L Anion Gap (6-13) BUN (6-20) mg/dL Creatinine (0.6-1.3) mg/dL Estimated GFR (MDRD) (>89) Glucose (74-104) mg/dL POC Whole Bld Glucose (70-100) mg/dL Calcium (8.5-10.3) mg/dL Phosphorus (2.5-5.0) mg/dL Magnesium (1.7-2.3) mg/dL Assessment/Plan Problem List (1) NSTEMI (non-ST elevated myocardial infarction): Impression: Hx of Keren G1 HF. Troponin 2810.7 (09/10) -> downtrending 2386.2 (09/11) BNP downtreding (09/10: 1890) 09/11: 1773 Cont. Heparin gtts. At therapuetic levels (09/12) aPTT 76.4 ECHO (09/11)shows moderatly reduced systolic function LVEF 35-40%. Multiple WMA w/ akinesis of apex w/ hypokinesis of antieror, anterolateral, and inferolateral avalos. Mild mitral regurg. Cardiology consulted and plan to transfer to [facility] for PCI. (2) Acute hypoxic respiratory failure: Impression: On BiPAP overnight and as needed. LS continues to have tight wheezing/decreased. Cont Ceftriaxone and Azithromycin for c/f pulmonary infection Cont. Lasix 40mg BID. Good UO overnight. Cont. Solu Medrol 40mg TID. Repeat CXR prior to transfer. (3) Acute exacerbation of CHF (congestive heart failure): Impression: Hx of Keren G1 HF Troponin downtrending (09/10: 2810.7) 09/11: 2386.2 BNP downtreding (09/10: 1890) 09/11: 1773 Cardiology consulted and suggest cardiac PCI. Continue Heparin infusion 12u/kg/hr IV. Mgmt as above. Qualifiers: Heart failure type: diastolic Qualified Code(s): I50.33 - Acute on chronic diastolic (congestive) heart failure (4) Venous insufficiency (chronic) (peripheral): Impression: Chronic ulcerations of bilateral lower extremities. Unwrapped and assessed yesterday, good healing process and decreased edema/swelling noted. Continue management in outpatient setting, wound care. (5) Type 2 diabetes mellitus with foot ulcer: Impression: Insulin sliding scale dosing. 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
--- NOTE | 2024-09-12 11:17 | XRAY Report ---
PROCEDURE: XR Chest 1V INDICATIONS: brett TECHNIQUE: One view of the chest was acquired. COMPARISON: CXR 09/10/2024, 08/02/2024. FINDINGS: Surgical changes and devices: None. Lungs and pleura: No pneumothorax. Prominent pulmonary markings. No silhouetting. Blunting of the co stophrenic angles. Lower lung volumes. Mediastinum: Mediastinal contours appear normal. Heart size is prominent. Bones and chest wall: No suspicious bony lesions. Overlying soft tissues appear unremarkable. IMPRESSION: Prominent pulmonary markings. Suspect pulmonary vasculature engorgement. Heart size is prominent. Dori pect small pleural effusions. Reviewed by: Ayaz Baker MD on 09/12/2024 11:15 AM PST Approved by: Ayaz Baker MD on 09/12/2024 11:15 AM [facility] Station ID: [id number]
[2024-09-12 12:03] VITALS: TEMP 98.1
[2024-09-12 13:53] VITALS: BP 123/69; O2SAT 95
== END 2024-09-12 14:10 | disposition short-term general hospital (02) | DRG 189 ==
LOC: ED 04:50 → MS3 04:50 → ICU 09:54
PROVIDERS: ADMIT Internal Medicine; ATTEND Internal Medicine
DX: I21.4 Non-ST elevation (NSTEMI) myocardial infarction; I48.91 Unspecified atrial fibrillation; I87.2 Venous insufficiency (chronic) (peripheral); Z79.4 Long term (current) use of insulin; I50.33 Acute on chronic diastolic (congestive) heart failure; E11.622 Type 2 diabetes mellitus with other skin ulcer; L97.912 Non-pressure chronic ulcer of unspecified part of right lower leg with fat layer exposed; E11.621 Type 2 diabetes mellitus with foot ulcer; L97.512 Non-pressure chronic ulcer of other part of right foot with fat layer exposed; J96.01 Acute respiratory failure with hypoxia; L97.921 Non-pressure chronic ulcer of unspecified part of left lower leg limited to breakdown of skin; J18.9 Pneumonia, unspecified organism; J15.9 Unspecified bacterial pneumonia